=== PATIENT | male | born 1965 | race Caucasian/White ===

== ENCOUNTER 2023-05-06 12:18 | Inpatient (IN) | payer BC ==
[2023-05-06 12:30] LABS: Glucose,Whole Blood >600 mg/dL (70-110)
--- NOTE | 2023-05-06 12:47 | ED ---
Altered Mental Status HPI - General Chief Complaint: Altered Mental Status Stated Complaint: AMS Time Seen by Provider: 05/06/23 12:18 Source: EMS, RN notes reviewed Mode of arrival: EMS Limitations: altered mental status - History of Present Illness Initial Comments: 58-year-old male in by EMS due to decreased level of consciousness/altered mental status progressively last several days. He apparently did have a fall a few days ago the patient himself is a poor historian per paramedics his blood glucose was high on their glucometer patient has no known history of any medical problems per report. 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 Some unknown whether he smokes or drinks alcohol. No known drug use per report. No medications. Port. Patient did recently move to [place] from out of [facility]. Patient has had decreased oral intake over last 2 days at least. No other information available at this time the patient was mottled per paramedics that's why EMS was called this morning. Patient was noted initially of having a 70/30 pressure did improve into the 100 teens after IV fluids. MD Complaint: altered mental status, decreased responsiveness, other - Related Data Home Medications Medication Instructions Recorded Confirmed No Known Home Medications 05/06/23 05/06/23 Allergies Allergy/AdvReac Type Severity Reaction Status Date / Time No Known Allergies Allergy Verified 05/06/23 14:08 Review of Systems ROS Statement: Those systems with pertinent positive or pertinent negative responses have been documented in the HPI. ROS Other: All systems not noted in ROS Statement are negative. Limitations: ROS unobtainable due to patients medical condition Past Medical History Past Medical History: No Reported History Past Surgical History: No Surgical Hx Reported Past Psychological History: No Psychological Hx Reported General Exam - General Exam Comments Initial Comments: Is a well-developed asthenic appearing male who is awake but lethargic Limitations: altered mental status General appearance: lethargic Head exam: Present: atraumatic, normocephalic, normal inspection Eye exam: Present: normal appearance, PERRL, EOMI. Absent: scleral icterus, con junctival injection, periorbital swelling ENT exam: Present: mucous membranes dry Neck exam: Present: normal inspection, full ROM, other (No surgery or bruits). Absent: tenderness, meningismus, lymphadenopathy Respiratory exam: Present: decreased breath sounds. Absent: respiratory distress, wheezes, rales, rhonchi, stridor Cardiovascular Exam: Present: regular rate, normal rhythm, normal heart sounds. Absent: systolic murmur, diastolic murmur, rubs, gallop, clicks GI/Abdominal exam: Present: soft, normal bowel sounds. Absent: distended, tenderness, guarding, rebound, rigid Extremities exam: Present: normal inspection, full ROM, normal capillary refill. Absent: tenderness, pedal edema, joint swelling, calf tenderness Back exam: Present: normal inspection Neurological exam: Present: alert, altered, CN II-XII intact. Absent: motor sensory deficit Psychiatric exam: Present: normal mood, flat affect Skin exam: Present: warm, dry, intact, normal color, other (Some mild bleeding seen over the knees and anterior thighs). Absent: rash Course Vital Signs 05/06/23 12:23 Temperature 90.7 F L Pulse Rate 93 Respiratory 16 Rate Blood Pressure 117/71 O2 Sat by Pulse 88 L Oximetry - Reevaluation(s) Reevaluation #1: 05/06/23 13:17 Further information the patient does have a history of smoking he had quit but started again this past June additionally was a isn't a diabetic meal lost weight dropping down to 140 from 225 pounds. He also had diffuse in demonstrating flulike symptoms for possibly as long as a days. Reevaluation #2: 05/06/23 14:33 I did a long discussion with the patient's family were present in who did provide more information. Patient apparently has been having polyuria up until about 8 days ago and flulike symptoms develop. Patient does show evidence of severe left foot imbalance acidosis hyperglycemia. I did have multiple reevaluation the patient and discussions with the family. Reevaluation #3: 05/06/23 14:48 Patient does have a history of perianal boils or abscesses. Examination does show evidence of at least 2 negative ruptured I did perform a rectal exam no masses palpable no evidence of bleeding from the rectum. 05/06/23 14:49 Due to this findings patient will receiveone dose of antibiotics. Procedures - Smoking Cessation Additional Comments: Unable to discuss smoking cessation of the patient's current clinical state. Medical Decision Making - Medical Decision Making I did discuss the findings with the patient also with Dr. Esperanza dorado and Dr. Mendoza did come to see the patient in emergency department. Patient will be admitted to intensive care unit presumed DKA with R imbalance dehydration hellen dence of pancreatitis. Concern for postcovid changes on chest x-ray. Patient will be admitted to the intensive care unit on insulin drip.Was pt. sent in by a medical professional or institution (, [facility], [facility], urgent care, hospital, or senior care...) When possible be specific @ -No Did you speak to anyone other than the patient for history (EMS, parent, family, police, friend...)? What history was obtained from this source @ -S paramedics upon arrival as well as family members who arrived later Did you review nursing and triage notes (agree or disagree)? Why? @ -I reviewed and agree with nursing and triage notes Were old charts reviewed (outside hosp., previous admission, EMS record, old EKG, old radiological studies, urgent care reports/EKG's, senior care records)? Report findings @ -No old charts were reviewed. None available Differential Diagnosis (chest pain, altered mental status, abdominal pain women, abdominal pain men, vaginal bleeding, weakness, fever, dyspnea, syncope, headache, dizziness, GI bleed, back pain, seizure, CVA, palpatations, mental health, musculoskeletal)? @ -Diabetic ketoacidosis, dehydration, weakness, EKG interpreted by me (3pts min.). @ -EKG interpreted by me sinus rhythm a 93. Interval 151 QRS duration 106 QT/ QTC 389/440 voltage criteria for LVH X-rays interpreted by me (1pt min.). @ -Chest x-ray negative for acute process KUB nonspecific post x-ray negative for fractures. All these were interpreted by me CT interpreted by me (1pt min.). @ -CT imaging interpreted by me no evidence of acute process on CT brain or C- spine or evidence of PE there is increased markings consistent with possible post COVID-19 changes U/S interpreted by me (1pt. min.). @ -None done What testing was considered but not performed or refused? (CT, X-rays, U/S, labs)? Why? @ -None What meds were considered but not given or refused? Why? @ -None Did you discuss the management of the patient with other professionals (pro fessionals i.e. , [facility], [facility], lab, RT, psych nurse, manager social media, criminal lawyer, teacher, commanding officer motorized squad, child welfare caseworker)? Give summary @ -Epigastric, Dr. Mendoza Was smoking cessation discussed for >3mins.? @ -Unable to it this time Was critical care preformed (if so, how long)? @ -49 Were there social determinants of health that impacted care today? How? (Homelessness, low income, unemployed, alcoholism, drug addiction, transportation, low edu. Level, literacy, decrease access to med. care, longterm, rehab)? @ -No Was there de-escalation of care discussed even if they declined (Discuss DNR or withdrawal of care, Hospice)? DNR status @ -No What co-morbidities impacted this encounter? (DM, HTN, Smoking, COPD, CAD, Cancer, CVA, ARF, Chemo, Hep., AIDS, mental health diagnosis, sleep apnea, morbid obesity)? @ -History of diabetes Was patient admitted / discharged? Hospital course, mention meds given and route, prescriptions, significant lab abnormalities, going to OR and other pertinent info. @ -hospital course was admitted to the intensive care unit for treatment of presumed DKA likely imbalance dehydration and metabolic acidosis pancreatitis Undiagnosed new problem with uncertain prognosis? @ -DKA, dehydration, likely imbalance, pancreatitis, Drug Therapy requiring intensive monitoring for toxicity (Heparin, Nitro, Insulin, Cardizem)? @ -DKA protocol Were any procedures done? @ -No Diagnosis/symptom? @ -Acute DKA, dehydration, acute hypokalemia, acute hypomagnesemia, metabolic acidosis, perianal decubitus ulceration, weakness, hypothermia, acute hypotensive episode, Q [id number] Acute, or Chronic, or Acute on Chronic? @ -Acute Uncomplicated (without systemic symptoms) or Complicated (systemic symptoms)? @ -Applicator Side effects of treatment? @ -No Exacerbation, Progression, or Severe Exacerbation? @ -No Poses a threat to life or bodily function? How? (Chest pain, USA, NC, pneumonia, PE, COPD, DKA, ARF, appy, cholecystitis, CVA, Diverticulitis, Homicidal, Suicidal, threat to staff... and all critical care pts) @ -S, dehydration, DKA, likely imbalance, metabolic acidosis, pancreatitis - Lab Data Result diagrams: 05/06/23 12:41 05/06/23 12:41 Lab Results 09/05/06/23 05/06/23 Range/Units 12:24 12:41 12:41 WBC 26.4 H (3.8-10.6) k/uL RBC 4.07 L (4.30-5.90) m/uL Hgb 13.0 (13.0-17.5) gm/dL Hct 40.7 (39.0-53.0) % MCV 100.1 H (80.0-100.0) fL MCH 31.8 (25.0-35.0) pg MCHC 31.8 (31.0-37.0) g/dL RDW 13.1 (11.5-15.5) % Plt Count 295 (150-450) k/uL MPV 8.5 Hypochromasia Slight PT (9.0-12.0) sec INR (<1.2) D-Dimer (<0.60) mg/L FEU VBG pH (7.31-7.41) VBG pCO2 (37-51) mmHg VBG HCO3 (24-28) mmol/L Sodium 141 (137-145) mmol/L Potassium 2.6 L* (3.5-5.1) mmol/L Chloride 120 H (98-107) mmol/L Carbon Dioxide <5 L* (22-30) mmol/L Anion Gap mmol/L BUN 27 H (9-20) mg/dL Creatinine 0.79 (0.66-1.25) mg/dL Est GFR (CKD-EPI)AfAm >90 (>60 ml/min/1.73 sqM) Est GFR (CKD-EPI)NonAf >90 (>60 ml/min/1.73 sqM) Glucose 441 H (74-99) mg/dL POC Glucose (mg/dL) >600 H (70-110) mg/dL POC Glu [employer] ID Penny Garcia Calcium 4.7 L* (8.4-10.2) mg/dL Magnesium 1.4 L (1.6-2.3) mg/dL Total Bilirubin 0.2 (0.2-1.3) mg/dL AST 14 L (17-59) U/L ALT 8 (4-49) U/L Alkaline Phosphatase 88 (38-126) U/L Ammonia (<30) umol/L Creatine Kinase 36 L (55-170) U/L Troponin I (0.000-0.034) ng/mL Total Protein 3.7 L (6.3-8.2) g/dL Albumin 1.6 L (3.5-5.0) g/dL Lipase 5925 H (23-300) U/L Urine Color Urine Appearance (Clear) Urine pH (5.0-8.0) Ur Specific [place] (1.001-1.035) Urine Protein (Negative) Urine Glucose (UA) (Negative) Urine Ketones (Negative) Urine Blood (Negative) Urine Nitrite (Negative) Urine Bilirubin (Negative) Urine Urobilinogen (<2.0) mg/dL Ur Leukocyte Esterase (Negative) Urine RBC (0-5) /hpf Urine WBC (0-5) /hpf Ur Squamous Epith Cells (0-4) /hpf Urine Bacteria (None) /hpf Urine Mucus (None) /hpf Salicylates <1.0 mg/dL Urine Opiates Screen (NotDetected) Ur Oxycodone Screen (NotDetected) Urine Methadone Screen (NotDetected) Ur Propoxyphene Screen (NotDetected) Acetaminophen <10.0 ug/mL Ur Barbiturates Screen (NotDetected) U Tricyclic Antidepress (NotDetected) Ur Phencyclidine Scrn (NotDetected) Ur Amphetamines Screen (NotDetected) U Methamphetamines Scrn (NotDetected) U Benzodiazepines Scrn (NotDetected) Urine Cocaine Screen (NotDetected) U Marijuana (THC) Screen (NotDetected) Serum Alcohol <10 mg/dL Influenza Type A (PCR) (Not Detectd) Influenza Type B (PCR) (Not Detectd) RSV (PCR) (Not Detectd) SARS-CoV-2 (PCR) (Not Detectd) 05/06/23 05/06/23 05/06/23 Range/Units 12:41 12:41 12:41 WBC (3.8-10.6) k/uL RBC (4.30-5.90) m/uL Hgb (13.0-17.5) gm/dL Hct (39.0-53.0) % MCV (80.0-100.0) fL MCH (25.0-35.0) pg MCHC (31.0-37.0) g/dL RDW (11.5-15.5) % Plt Count (150-450) k/uL MPV Hypochromasia PT 12.2 H (9.0-12.0) sec INR 1.2 H (<1.2) D-Dimer 1.24 H (<0.60) mg/L FEU VBG pH (7.31-7.41) VBG pCO2 (37-51) mmHg VBG HCO3 (24-28) mmol/L Sodium (137-145) mmol/L Potassium (3.5-5.1) mmol/L Chloride (98-107) mmol/L Carbon Dioxide (22-30) mmol/L Anion Gap mmol/L BUN (9-20) mg/dL Creatinine (0.66-1.25) mg/dL Est GFR (CKD-EPI)AfAm (>60 ml/min/1.73 sqM) Est GFR (CKD-EPI)NonAf (>60 ml/min/1.73 sqM) Glucose (74-99) mg/dL POC Glucose (mg/dL) (70-110) mg/dL POC Glu [employer] ID Calcium (8.4-10.2) mg/dL Magnesium (1.6-2.3) mg/dL Total Bilirubin (0.2-1.3) mg/dL AST (17-59) U/L ALT (4-49) U/L Alkaline Phosphatase (38-126) U/L Ammonia (<30) umol/L Creatine Kinase (55-170) U/L Troponin I <0.012 (0.000-0.034) ng/mL Total Protein (6.3-8.2) g/dL Albumin (3.5-5.0) g/dL Lipase (23-300) U/L Urine Color Urine Appearance (Clear) Urine pH (5.0-8.0) Ur Specific [place] (1.001-1.035) Urine Protein (Negative) Urine Glucose (UA) (Negative) Urine Ketones (Negative) Urine Blood (Negative) Urine Nitrite (Negative) Urine Bilirubin (Negative) Urine Urobilinogen (<2.0) mg/dL Ur Leukocyte Esterase (Negative) Urine RBC (0-5) /hpf Urine WBC (0-5) /hpf Ur Squamous Epith Cells (0-4) /hpf Urine Bacteria (None) /hpf Urine Mucus (None) /hpf Salicylates mg/dL Urine Opiates Screen (NotDetected) Ur Oxycodone Screen (NotDetected) Urine Methadone Screen (NotDetected) Ur Propoxyphene Screen (NotDetected) Acetaminophen ug/mL Ur Barbiturates Screen (NotDetected) U Tricyclic Antidepress (NotDetected) Ur Phencyclidine Scrn (NotDetected) Ur Amphetamines Screen (NotDetected) U Methamphetamines Scrn (NotDetected) U Benzodiazepines Scrn (NotDetected) Urine Cocaine Screen (NotDetected) U Marijuana (THC) Screen (NotDetected) Serum Alcohol mg/dL Influenza Type A (PCR) Not Detected (Not Detectd) Influenza Type B (PCR) Not Detected (Not Detectd) RSV (PCR) Not Detected (Not Detectd) SARS-CoV-2 (PCR) Not Detected (Not Detectd) 05/06/23 05/06/23 05/06/23 Range/Units 12:41 12:41 12:48 WBC (3.8-10.6) k/uL RBC (4.30-5.90) m/uL Hgb (13.0-17.5) gm/dL Hct (39.0-53.0) % MCV (80.0-100.0) fL MCH (25.0-35.0) pg MCHC (31.0-37.0) g/dL RDW (11.5-15.5) % Plt Count (150-450) k/uL MPV Hypochromasia PT (9.0-12.0) sec INR (<1.2) D-Dimer (<0.60) mg/L FEU VBG pH 6.89 L* (7.31-7.41) VBG pCO2 18 L* (37-51) mmHg VBG HCO3 4 L* (24-28) mmol/L Sodium (137-145) mmol/L Potassium (3.5-5.1) mmol/L Chloride (98-107) mmol/L Carbon Dioxide (22-30) mmol/L Anion Gap mmol/L BUN (9-20) mg/dL Creatinine (0.66-1.25) mg/dL Est GFR (CKD-EPI)AfAm (>60 ml/min/1.73 sqM) Est GFR (CKD-EPI)NonAf (>60 ml/min/1.73 sqM) Glucose (74-99) mg/dL POC Glucose (mg/dL) (70-110) mg/dL POC Glu [employer] ID Calcium (8.4-10.2) mg/dL Magnesium (1.6-2.3) mg/dL Total Bilirubin (0.2-1.3) mg/dL AST (17-59) U/L ALT (4-49) U/L Alkaline Phosphatase (38-126) U/L Ammonia <9 (<30) umol/L Creatine Kinase (55-170) U/L Troponin I (0.000-0.034) ng/mL Total Protein (6.3-8.2) g/dL Albumin (3.5-5.0) g/dL Lipase (23-300) U/L Urine Color Urine Appearance (Clear) Urine pH (5.0-8.0) Ur Specific [place] (1.001-1.035) Urine Protein (Negative) Urine Glucose (UA) (Negative) Urine Ketones (Negative) Urine Blood (Negative) Urine Nitrite (Negative) Urine Bilirubin (Negative) Urine Urobilinogen (<2.0) mg/dL Ur Leukocyte Esterase (Negative) Urine RBC (0-5) /hpf Urine WBC (0-5) /hpf Ur Squamous Epith Cells (0-4) /hpf Urine Bacteria (None) /hpf Urine Mucus (None) /hpf Salicylates mg/dL Urine Opiates Screen Not Detected (NotDetected) Ur Oxycodone Screen Not Detected (NotDetected) Urine Methadone Screen Not Detected (NotDetected) Ur Propoxyphene Screen Not Detected (NotDetected) Acetaminophen ug/mL Ur Barbiturates Screen Not Detected (NotDetected) U Tricyclic Antidepress Not Detected (NotDetected) Ur Phencyclidine Scrn Not Detected (NotDetected) Ur Amphetamines Screen Not Detected (NotDetected) U Methamphetamines Scrn Not Detected (NotDetected) U Benzodiazepines Scrn Not Detected (NotDetected) Urine Cocaine Screen Not Detected (NotDetected) U Marijuana (THC) Screen Not Detected (NotDetected) Serum Alcohol mg/dL Influenza Type A (PCR) (Not Detectd) Influenza Type B (PCR) (Not Detectd) RSV (PCR) (Not Detectd) SARS-CoV-2 (PCR) (Not Detectd) 05/06/23 Range/Units 13:33 WBC (3.8-10.6) k/uL RBC (4.30-5.90) m/uL Hgb (13.0-17.5) gm/dL Hct (39.0-53.0) % MCV (80.0-100.0) fL MCH (25.0-35.0) pg MCHC (31.0-37.0) g/dL RDW (11.5-15.5) % Plt Count (150-450) k/uL MPV Hypochromasia PT (9.0-12.0) sec INR (<1.2) D-Dimer (<0.60) mg/L FEU VBG pH (7.31-7.41) VBG pCO2 (37-51) mmHg VBG HCO3 (24-28) mmol/L Sodium (137-145) mmol/L Potassium (3.5-5.1) mmol/L Chloride (98-107) mmol/L Carbon Dioxide (22-30) mmol/L Anion Gap mmol/L BUN (9-20) mg/dL Creatinine (0.66-1.25) mg/dL Est GFR (CKD-EPI)AfAm (>60 ml/min/1.73 sqM) Est GFR (CKD-EPI)NonAf (>60 ml/min/1.73 sqM) Glucose (74-99) mg/dL POC Glucose (mg/dL) (70-110) mg/dL POC Glu [employer] ID Calcium (8.4-10.2) mg/dL Magnesium (1.6-2.3) mg/dL Total Bilirubin (0.2-1.3) mg/dL AST (17-59) U/L ALT (4-49) U/L Alkaline Phosphatase (38-126) U/L Ammonia (<30) umol/L Creatine Kinase (55-170) U/L Troponin I (0.000-0.034) ng/mL Total Protein (6.3-8.2) g/dL Albumin (3.5-5.0) g/dL Lipase (23-300) U/L Urine Color Colorless Urine Appearance Clear (Clear) Urine pH 5.5 (5.0-8.0) Ur Specific [place] 1.021 (1.001-1.035) Urine Protein 1+ H (Negative) Urine Glucose (UA) 4+ H (Negative) Urine Ketones 3+ H (Negative) Urine Blood Small H (Negative) Urine Nitrite Negative (Negative) Urine Bilirubin Negative (Negative) Urine Urobilinogen <2.0 (<2.0) mg/dL Ur Leukocyte Esterase Negative (Negative) Urine RBC 1 (0-5) /hpf Urine WBC 2 (0-5) /hpf Ur Squamous Epith Cells <1 (0-4) /hpf Urine Bacteria Rare H (None) /hpf Urine Mucus Rare H (None) /hpf Salicylates mg/dL Urine Opiates Screen (NotDetected) Ur Oxycodone Screen (NotDetected) Urine Methadone Screen (NotDetected) Ur Propoxyphene Screen (NotDetected) Acetaminophen ug/mL Ur Barbiturates Screen (NotDetected) U Tricyclic Antidepress (NotDetected) Ur Phencyclidine Scrn (NotDetected) Ur Amphetamines Screen (NotDetected) U Methamphetamines Scrn (NotDetected) U Benzodiazepines Scrn (NotDetected) Urine Cocaine Screen (NotDetected) U Marijuana (THC) Screen (NotDetected) Serum Alcohol mg/dL Influenza Type A (PCR) (Not Detectd) Influenza Type B (PCR) (Not Detectd) RSV (PCR) (Not Detectd) SARS-CoV-2 (PCR) (Not Detectd) - EKG Data -: EKG Interpreted by Me EKG Comments: EKG interpreted by me sinus rhythm of 93. Interval 151 QRS duration 106 QT since QTC 39/440 pulses criteria for LVH no acute ST-T wave changes prominent T waves seen however. - Radiology Data Interpreted by me: An hall porter the imaging no evidence of acute infiltrates or abnormal bowel ga s patterns. CT no evidence of acute intracerebral process or fractures of the C-spine. No evidence of PE at this time. CAT scan does show some infiltrate however. Critical Care Time Critical Care Time: Yes Total Critical Care Time: 45 Disposition Clinical Impression: DKA (diabetic ketoacidosis), Dehydration, Hypotensive episode, Hypokalemia, Hypomagnesemia, Leukocytosis, Metabolic acidosis, Decubitus ulcer, Altered mental status, Delirium due to general medical condition Disposition: ADMITTED IP TO THIS [facility] Condition: Critical Referrals: Nonstaff,Physician [REFERRING] - 1-2 days Decision Date: 05/06/23 Decision Time: 14:52
[2023-05-06] MEDS ORDERED: SODIUM CHLORIDE 0.9% 1,000 ML IV STA (13:09)
[2023-05-06 13:21] LABS: Amphetamine Screen,Urine Not Detected (NotDetected); Barbiturate Screen,Urine Not Detected (NotDetected); Benzodiazepines Screen,Urine Not Detected (NotDetected); Cocaine Screen,Urine Not Detected (NotDetected); Methadone Screen, Urine Not Detected (NotDetected); Opiate Screen,Urine Not Detected (NotDetected); Oxycodone Screen, Urine Not Detected (NotDetected); Phencyclidine Screen,Urine Not Detected (NotDetected); Tricyclic Antidepressant,Urine Not Detected (NotDetected); Urn Cannabinoid Scrn Not Detected (NotDetected)
[2023-05-06 13:37] LABS: INR 1.2 (<1.2); Prothrombin Time 12.2 sec (9.0-12.0)
[2023-05-06 13:41] LABS: ALT 8 U/L (4-49); AST 14 U/L (17-59); Acetaminophen <10.0 ug/mL; African American GFR (CKD) >90 (>60 ml/min/1.73 sqM); Albumin 1.6 g/dL (3.5-5.0); Alcohol <10 mg/dL; Alkaline Phosphatase 88 U/L (38-126); Blood Urea Nitrogen 27 mg/dL (9-20); Chloride 120 mmol/L (98-107); Creatine Kinase 36 U/L (55-170); Glucose 441 mg/dL (74-99); Magnesium 1.4 mg/dL (1.6-2.3); Non-African American GFR(CKD) >90 (>60 ml/min/1.73 sqM); Salicylate <1.0 mg/dL; Sodium 141 mmol/L (137-145); Total Bilirubin 0.2 mg/dL (0.2-1.3); Total Protein 3.7 g/dL (6.3-8.2)
[2023-05-06 13:42] LABS: Calcium 4.7 mg/dL (8.4-10.2); Carbon Dioxide <5 mmol/L (22-30); Potassium 2.6 mmol/L (3.5-5.1)
[2023-05-06] MEDS ORDERED: POTASSIUM CHLORIDE 20 MEQ in WATER FOR INJECTION 1 100ML.BAG IVPB STA (13:45)
[2023-05-06] MEDS ORDERED: MAGNESIUM SULFATE-D5W PMX 1 GM in DEXTROSE/WATER 1 100ML.BAG IVPB ONE (13:46)
--- NOTE | 2023-05-06 13:47 | XR ---
EXAMINATION TYPE: XR chest 1V portable DATE OF EXAM: 05/06/2023 COMPARISON: NONE HISTORY: Altered mental status TECHNIQUE: Single frontal view of the chest is obtained. FINDINGS: Linear patchy subsegmental changes. There is a 1 cm nodule along the lateral margin of the left lung. Underlying COPD. Inspiration. No evidence of pneumothorax. No sizable pleural effusion. C urvature of the spine. IMPRESSION: 1. No definite acute process suspected COPD and basilar scarring or basilar atelectasis. 2. 1 cm nodule lateral margin left lower lobe could represent nipple shadow. Recommend follow-up ches t x-ray with nipple markers and short-term basis.
[2023-05-06 13:50] LABS: HCT 40.7 % (39.0-53.0); Hypochromasia Slight; MCH 31.8 pg (25.0-35.0); MCHC 31.8 g/dL (31.0-37.0); MCV 100.1 fL (80.0-100.0); Mean Platelet Volume 8.5; Platelet Count 295 k/uL (150-450); RBC 4.07 m/uL (4.30-5.90); RDW 13.1 % (11.5-15.5); WBC 26.4 k/uL (3.8-10.6)
--- NOTE | 2023-05-06 13:54 | XR ---
EXAMINATION TYPE: XR pelvis AP view DATE OF EXAM: 05/06/2023 COMPARISON: NONE HISTORY: Pain The osseous structures are intact and the joint spaces are preserved. No acute fracture is seen. Vi sualized bowel gas pattern is nonspecific. There is a catheter or tube overlying the lower pelvis po ssibly within the rectum or bladder. Vascular calcifications noted. Diffuse osteopenia. IMPRESSION: 1. No acute fracture.
[2023-05-06 13:56] LABS: VBG PH 6.89 (7.31-7.41)
[2023-05-06 13:59] LABS: Appearance,Urine Clear (Clear); Bacteria,Urine Rare /hpf; Bilirubin,Urine Negative (Negative); Blood,Urine Small (Negative); Color,Urine Colorless; Glucose,Urine (UA) 4+ (Negative); Ketones,Urine 3+ (Negative); Leukocyte Esterase,Urine Negative (Negative); Mucus,Urine Rare /hpf; Nitrite,Urine Negative (Negative); PH, Urine 5.5 (5.0-8.0); Protein,Urine 1+ (Negative); RBC,Urine 1 /hpf (0-5); Specific Gravity,Urine 1.021 (1.001-1.035); Squamous Epithelial Cell,Urine <1 /hpf (0-4); Urobilinogen,Urine <2.0 mg/dL (<2.0); WBC,Urine 2 /hpf (0-5)
[2023-05-06 14:09] LABS: Band Neutrophils % 6 %; Lymphocytes # (M) 1.32 k/uL (1.0-4.8); Metamyelocytes # (M) 0.26 k/uL (0); Metamyelocytes % 1 %; Monocytes # (M) 1.32 k/uL (0-1.0); Myelocytes # (M) 0.26 k/uL (0); Myelocytes % 1 %; Neutrophils % (M) 84 %; Nucleated Red Blood Cells 0 /100 WBC (0-0); Total Cells Counted 200
[2023-05-06] MEDS ORDERED: Magnesium Replacement Protocol 1 EACH MISC MISCELLANE PRN (14:20)
[2023-05-06] MEDS ORDERED: Potassium Replacement Protocol 1 EACH MISC MISCELLANE PRN (14:20)
[2023-05-06] MEDS ORDERED: INSULIN REGULAR BOLUS (FROM DRIP BAG) IV ONE (14:20)
[2023-05-06] MEDS ORDERED: DEXTROSE 50% SYRINGE 50 ML IVP PRN ×2 (14:20)
[2023-05-06 14:24] LABS: Lipase 5925 U/L (23-300)
--- NOTE | 2023-05-06 14:29 | CT ---
EXAMINATION TYPE: CT brain cspine wo con CT DLP: AMS mGycm, Automated exposure control for dose reduction was used. DATE OF EXAM: 05/06/2023 2:15 PM COMPARISON: None. CLINICAL INDICATION:Male, 58 years old with history of altered mental; 1328.9 TECHNIQUE: Brain: Multiple axial CT images of the brain were obtained without IV contrast. Cspine: Axial CT images from the skull base to the inferior aspect of T2 we obtained without intraven ous contrast. Coronal and sagittal reformatted images were also reviewed. FINDINGS: Brain: Extra-axial spaces: No abnormal extra-axial fluid collections. Ventricular system: Dilatation in proportion to cerebral atrophy. Cerebral parenchyma: Cerebral atrophy. No acute intraparenchymal hemorrhage or mass effect. The walsh -white junction is well differentiated. Cerebellum: Unremarkable. Mass effect: No evidence of midline shift. Intracranial vasculature: Atherosclerotic calcifications of the intracranial vessels. Soft tissues: Normal. Calvarium/osseous structures: No depressed skull fracture. Paranasal sinuses and mastoid air cells: Clear. Visualized orbits: Orbital contents are intact. Cervical spine: Fracture: None. Osseous structures: Multilevel degenerative disc disease changes with endplate spurring and disc oste ophyte complex's. Vertebral alignment: Within normal limits. Spinal canal/Neural Foramina: No evidence of significant spinal canal narrowing. No evidence for sign ificant neural foraminal stenosis. Neck soft tissues: Prevertebral soft tissues are within normal limits. Other: The airway is patent. The lung apices are clear. IMPRESSION: 1. No acute intracranial process. 2. Nonspecific white matter changes, likely secondary to chronic small vessel ischemic disease. 3. No evidence of cervical spine fracture. 4. Mild multilevel degenerative disc disease.
[2023-05-06] MEDS ORDERED: SODIUM CHLORIDE 0.9% 2,000 ML IV ONE (14:32)
--- NOTE | 2023-05-06 14:36 | CT ---
EXAMINATION TYPE: CT angio chest CT DLP: 317.3 mGycm, Automated exposure control for dose reduction was used. DATE OF EXAM: 05/06/2023 2:17 PM COMPARISON: Chest radiograph from same day. CLINICAL INDICATION:Male, 58 years old with history of PE suspected; elevated d-dimer. r/o PE. TECHNIQUE/CONTRAST: CTA scan of the thorax is performed with IV Contrast, patient injected with 70ml mL of Isovue 370, OH P images are created and reviewed these are created on a separate workstation.. FINDINGS: Pulmonary Artery: There is no evidence for a filling defect within the pulmonary vasculature to sugge st acute pulmonary embolism. The pulmonary artery is of normal size. Lungs/Pleura: Peripheral groundglass opacities are seen throughout the lungs and most pronounced in t he right lungs and along the right lung base. Intrathoracic; the left lungs. Airway: Large airways are patent. Heart: Heart is within normal limits for size. Vasculature: No evidence of aortic aneurysm. Mediastinum: No gross evidence of adenopathy. Moderate hiatal hernia with esophageal wall thickening. Musculoskeletal: No acute osseous abnormalities Soft Tissues: Unremarkable. Lower neck: No significant findings. Upper Abdomen: No significant findings. IMPRESSION: 1. No evidence of pulmonary embolism. 2. Peripheral groundglass pulmonary opacities consistent with atypical pulmonary infection such as CO VID-19. 3. Esophageal wall thickening correlate for esophagitis.
[2023-05-06 14:50] LABS: Poikilocytosis (M) Present
[2023-05-06] MEDS ORDERED: PIPERACILLIN-TAZOBACTAM 3.375 GM in SODIUM CHLORIDE 0.9% 100 ML IVPB STA (14:53)
--- NOTE | 2023-05-06 14:54 | ED ---
Medical Decision Making - Lab Data Result diagrams: 05/06/23 12:41 05/06/23 12:41 Lab Results 05/06/23 05/06/23 05/06/23 Range/Units 12:24 12:41 12:41 WBC 26.4 H (3.8-10.6) k/uL RBC 4.07 L (4.30-5.90) m/uL Hgb 13.0 (13.0-17.5) gm/dL Hct 40.7 (39.0-53.0) % MCV 100.1 H (80.0-100.0) fL MCH 31.8 (25.0-35.0) pg MCHC 31.8 (31.0-37.0) g/dL RDW 13.1 (11.5-15.5) % Plt Count 295 (150-450) k/uL MPV 8.5 Neutrophils % (Manual) 84 % Band Neuts % (Manual) 6 % Lymphocytes % (Manual) 5 % Monocytes % (Manual) 5 % Metamyelocytes % 1 % Myelocytes % 1 % Neutrophils # (Manual) 23.70 H (1.3-7.7) k/uL Lymphocytes # (Manual) 1.32 (1.0-4.8) k/uL Monocytes # (Manual) 1.32 H (0-1.0) k/uL Metamyelocytes # (Man) 0.26 H (0) k/uL Myelocytes # (Manual) 0.26 H (0) k/uL Nucleated RBCs 0 (0-0) /100 WBC Differential Comment LABOR AND DELIVERY NURSE Manual Slide Review Performed Hypochromasia Slight Poikilocytosis (manual Present PT (9.0-12.0) sec INR (<1.2) D-Dimer (<0.60) mg/L FEU VBG pH (7.31-7.41) VBG pCO2 (37-51) mmHg VBG HCO3 (24-28) mmol/L Sodium 141 (137-145) mmol/L Potassium 2.6 L* (3.5-5.1) mmol/L Chloride 120 H (98-107) mmol/L Carbon Dioxide <5 L* (22-30) mmol/L Anion Gap mmol/L BUN 27 H (9-20) mg/dL Creatinine 0.79 (0.66-1.25) mg/dL Est GFR (CKD-EPI)AfAm >90 (>60 ml/min/1.73 sqM) Est GFR (CKD-EPI)NonAf >90 (>60 ml/min/1.73 sqM) Glucose 441 H (74-99) mg/dL POC Glucose (mg/dL) >600 H (70-110) mg/dL POC Glu Nematology Teacher ID Penny Garcia Osmolality 331 H* (280-301) mosm/kg Calcium 4.7 L* (8.4-10.2) mg/dL Magnesium 1.4 L (1.6-2.3) mg/dL Total Bilirubin 0.2 (0.2-1.3) mg/dL AST 14 L (17-59) U/L ALT 8 (4-49) U/L Alkaline Phosphatase 88 (38-126) U/L Ammonia (<30) umol/L Creatine Kinase 36 L (55-170) U/L Troponin I (0.000-0.034) ng/mL Total Protein 3.7 L (6.3-8.2) g/dL Albumin 1.6 L (3.5-5.0) g/dL Lipase 5925 H (23-300) U/L Urine Color Urine Appearance (Clear) Urine pH (5.0-8.0) Ur Specific Trout (1.001-1.035) Urine Protein (Negative) Urine Glucose (UA) (Negative) Urine Ketones (Negative) Urine Blood (Negative) Urine Nitrite (Negative) Urine Bilirubin (Negative) Urine Urobilinogen (<2.0) mg/dL Ur Leukocyte Esterase (Negative) Urine RBC (0-5) /hpf Urine WBC (0-5) /hpf Ur Squamous Epith Cells (0-4) /hpf Urine Bacteria (None) /hpf Urine Mucus (None) /hpf Salicylates <1.0 mg/dL Urine Opiates Screen (NotDetected) Ur Oxycodone Screen (NotDetected) Urine Methadone Screen (NotDetected) Ur Propoxyphene Screen (NotDetected) Acetaminophen <10.0 ug/mL Ur Barbiturates Screen (NotDetected) U Tricyclic Antidepress (NotDetected) Ur Phencyclidine Scrn (NotDetected) Ur Amphetamines Screen (NotDetected) U Methamphetamines Scrn (NotDetected) U Benzodiazepines Scrn (NotDetected) Urine Cocaine Screen (NotDetected) U Marijuana (THC) Screen (NotDetected) Serum Alcohol <10 mg/dL Influenza Type A (PCR) (Not Detectd) Influenza Type B (PCR) (Not Detectd) RSV (PCR) (Not Detectd) SARS-CoV-2 (PCR) (Not Detectd) 05/06/23 05/06/23 05/06/23 Range/Units 12:41 12:41 12:41 WBC (3.8-10.6) k/uL RBC (4.30-5.90) m/uL Hgb (13.0-17.5) gm/dL Hct (39.0-53.0) % MCV (80.0-100.0) fL MCH (25.0-35.0) pg MCHC (31.0-37.0) g/dL RDW (11.5-15.5) % Plt Count (150-450) k/uL MPV Neutrophils % (Manual) % Band Neuts % (Manual) % Lymphocytes % (Manual) % Monocytes % (Manual) % Metamyelocytes % % Myelocytes % % Neutrophils # (Manual) (1.3-7.7) k/uL Lymphocytes # (Manual) (1.0-4.8) k/uL Monocytes # (Manual) (0-1.0) k/uL Metamyelocytes # (Man) (0) k/uL Myelocytes # (Manual) (0) k/uL Nucleated RBCs (0-0) /100 WBC Differential Comment Manual Slide Review Hypochromasia Poikilocytosis (manual PT 12.2 H (9.0-12.0) sec INR 1.2 H (<1.2) D-Dimer 1.24 H (<0.60) mg/L FEU VBG pH (7.31-7.41) VBG pCO2 (37-51) mmHg VBG HCO3 (24-28) mmol/L Sodium (137-145) mmol/L Potassium (3.5-5.1) mmol/L Chloride (98-107) mmol/L Carbon Dioxide (22-30) mmol/L Anion Gap mmol/L BUN (9-20) mg/dL Creatinine (0.66-1.25) mg/dL Est GFR (CKD-EPI)AfAm (>60 ml/min/1.73 sqM) Est GFR (CKD-EPI)NonAf (>60 ml/min/1.73 sqM) Glucose (74-99) mg/dL POC Glucose (mg/dL) (70-110) mg/dL POC Glu Nematology Teacher ID Osmolality (280-301) mosm/kg Calcium (8.4-10.2) mg/dL Magnesium (1.6-2.3) mg/dL Total Bilirubin (0.2-1.3) mg/dL AST (17-59) U/L ALT (4-49) U/L Alkaline Phosphatase (38-126) U/L Ammonia (<30) umol/L Creatine Kinase (55-170) U/L Troponin I <0.012 (0.000-0.034) ng/mL Total Protein (6.3-8.2) g/dL Albumin (3.5-5.0) g/dL Lipase (23-300) U/L Urine Color Urine Appearance (Clear) Urine pH (5.0-8.0) Ur Specific Trout (1.001-1.035) Urine Protein (Negative) Urine Glucose (UA) (Negative) Urine Ketones (Negative) Urine Blood (Negative) Urine Nitrite (Negative) Urine Bilirubin (Negative) Urine Urobilinogen (<2.0) mg/dL Ur Leukocyte Esterase (Negative) Urine RBC (0-5) /hpf Urine WBC (0-5) /hpf Ur Squamous Epith Cells (0-4) /hpf Urine Bacteria (None) /hpf Urine Mucus (None) /hpf Salicylates mg/dL Urine Opiates Screen (NotDetected) Ur Oxycodone Screen (NotDetected) Urine Methadone Screen (NotDetected) Ur Propoxyphene Screen (NotDetected) Acetaminophen ug/mL Ur Barbiturates Screen (NotDetected) U Tricyclic Antidepress (NotDetected) Ur Phencyclidine Scrn (NotDetected) Ur Amphetamines Screen (NotDetected) U Methamphetamines Scrn (NotDetected) U Benzodiazepines Scrn (NotDetected) Urine Cocaine Screen (NotDetected) U Marijuana (THC) Screen (NotDetected) Serum Alcohol mg/dL Influenza Type A (PCR) Not Detected (Not Detectd) Influenza Type B (PCR) Not Detected (Not Detectd) RSV (PCR) Not Detected (Not Detectd) SARS-CoV-2 (PCR) Not Detected (Not Detectd) 05/06/23 05/06/23 05/06/23 Range/Units 12:41 12:41 12:48 WBC (3.8-10.6) k/uL RBC (4.30-5.90) m/uL Hgb (13.0-17.5) gm/dL Hct (39.0-53.0) % MCV (80.0-100.0) fL MCH (25.0-35.0) pg MCHC (31.0-37.0) g/dL RDW (11.5-15.5) % Plt Count (150-450) k/uL MPV Neutrophils % (Manual) % Band Neuts % (Manual) % Lymphocytes % (Manual) % Monocytes % (Manual) % Metamyelocytes % % Myelocytes % % Neutrophils # (Manual) (1.3-7.7) k/uL Lymphocytes # (Manual) (1.0-4.8) k/uL Monocytes # (Manual) (0-1.0) k/uL Metamyelocytes # (Man) (0) k/uL Myelocytes # (Manual) (0) k/uL Nucleated RBCs (0-0) /100 WBC Differential Comment Manual Slide Review Hypochromasia Poikilocytosis (manual PT (9.0-12.0) sec INR (<1.2) D-Dimer (<0.60) mg/L FEU VBG pH 6.89 L* (7.31-7.41) VBG pCO2 18 L* (37-51) mmHg VBG HCO3 4 L* (24-28) mmol/L Sodium (137-145) mmol/L Potassium (3.5-5.1) mmol/L Chloride (98-107) mmol/L Carbon Dioxide (22-30) mmol/L Anion Gap mmol/L BUN (9-20) mg/dL Creatinine (0.66-1.25) mg/dL Est GFR (CKD-EPI)AfAm (>60 ml/min/1.73 sqM) Est GFR (CKD-EPI)NonAf (>60 ml/min/1.73 sqM) Glucose (74-99) mg/dL POC Glucose (mg/dL) (70-110) mg/dL POC Glu Nematology Teacher ID Osmolality (280-301) mosm/kg Calcium (8.4-10.2) mg/dL Magnesium (1.6-2.3) mg/dL Total Bilirubin (0.2-1.3) mg/dL AST (17-59) U/L ALT (4-49) U/L Alkaline Phosphatase (38-126) U/L Ammonia <9 (<30) umol/L Creatine Kinase (55-170) U/L Troponin I (0.000-0.034) ng/mL Total Protein (6.3-8.2) g/dL Albumin (3.5-5.0) g/dL Lipase (23-300) U/L Urine Color Urine Appearance (Clear) Urine pH (5.0-8.0) Ur Specific Trout (1.001-1.035) Urine Protein (Negative) Urine Glucose (UA) (Negative) Urine Ketones (Negative) Urine Blood (Negative) Urine Nitrite (Negative) Urine Bilirubin (Negative) Urine Urobilinogen (<2.0) mg/dL Ur Leukocyte Esterase (Negative) Urine RBC (0-5) /hpf Urine WBC (0-5) /hpf Ur Squamous Epith Cells (0-4) /hpf Urine Bacteria (None) /hpf Urine Mucus (None) /hpf Salicylates mg/dL Urine Opiates Screen Not Detected (NotDetected) Ur Oxycodone Screen Not Detected (NotDetected) Urine Methadone Screen Not Detected (NotDetected) Ur Propoxyphene Screen Not Detected (NotDetected) Acetaminophen ug/mL Ur Barbiturates Screen Not Detected (NotDetected) U Tricyclic Antidepress Not Detected (NotDetected) Ur Phencyclidine Scrn Not Detected (NotDetected) Ur Amphetamines Screen Not Detected (NotDetected) U Methamphetamines Scrn Not Detected (NotDetected) U Benzodiazepines Scrn Not Detected (NotDetected) Urine Cocaine Screen Not Detected (NotDetected) U Marijuana (THC) Screen Not Detected (NotDetected) Serum Alcohol mg/dL Influenza Type A (PCR) (Not Detectd) Influenza Type B (PCR) (Not Detectd) RSV (PCR) (Not Detectd) SARS-CoV-2 (PCR) (Not Detectd) 05/06/23 Range/Units 13:33 WBC (3.8-10.6) k/uL RBC (4.30-5.90) m/uL Hgb (13.0-17.5) gm/dL Hct (39.0-53.0) % MCV (80.0-100.0) fL MCH (25.0-35.0) pg MCHC (31.0-37.0) g/dL RDW (11.5-15.5) % Plt Count (150-450) k/uL MPV Neutrophils % (Manual) % Band Neuts % (Manual) % Lymphocytes % (Manual) % Monocytes % (Manual) % Metamyelocytes % % Myelocytes % % Neutrophils # (Manual) (1.3-7.7) k/uL Lymphocytes # (Manual) (1.0-4.8) k/uL Monocytes # (Manual) (0-1.0) k/uL Metamyelocytes # (Man) (0) k/uL Myelocytes # (Manual) (0) k/uL Nucleated RBCs (0-0) /100 WBC Differential Comment Manual Slide Review Hypochromasia Poikilocytosis (manual PT (9.0-12.0) sec INR (<1.2) D-Dimer (<0.60) mg/L FEU VBG pH (7.31-7.41) VBG pCO2 (37-51) mmHg VBG HCO3 (24-28) mmol/L Sodium (137-145) mmol/L Potassium (3.5-5.1) mmol/L Chloride (98-107) mmol/L Carbon Dioxide (22-30) mmol/L Anion Gap mmol/L BUN (9-20) mg/dL Creatinine (0.66-1.25) mg/dL Est GFR (CKD-EPI)AfAm (>60 ml/min/1.73 sqM) Est GFR (CKD-EPI)NonAf (>60 ml/min/1.73 sqM) Glucose (74-99) mg/dL POC Glucose (mg/dL) (70-110) mg/dL POC Glu Nematology Teacher ID Osmolality (280-301) mosm/kg Calcium (8.4-10.2) mg/dL Magnesium (1.6-2.3) mg/dL Total Bilirubin (0.2-1.3) mg/dL AST (17-59) U/L ALT (4-49) U/L Alkaline Phosphatase (38-126) U/L Ammonia (<30) umol/L Creatine Kinase (55-170) U/L Troponin I (0.000-0.034) ng/mL Total Protein (6.3-8.2) g/dL Albumin (3.5-5.0) g/dL Lipase (23-300) U/L Urine Color Colorless Urine Appearance Clear (Clear) Urine pH 5.5 (5.0-8.0) Ur Specific Trout 1.021 (1.001-1.035) Urine Protein 1+ H (Negative) Urine Glucose (UA) 4+ H (Negative) Urine Ketones 3+ H (Negative) Urine Blood Small H (Negative) Urine Nitrite Negative (Negative) Urine Bilirubin Negative (Negative) Urine Urobilinogen <2.0 (<2.0) mg/dL Ur Leukocyte Esterase Negative (Negative) Urine RBC 1 (0-5) /hpf Urine WBC 2 (0-5) /hpf Ur Squamous Epith Cells <1 (0-4) /hpf Urine Bacteria Rare H (None) /hpf Urine Mucus Rare H (None) /hpf Salicylates mg/dL Urine Opiates Screen (NotDetected) Ur Oxycodone Screen (NotDetected) Urine Methadone Screen (NotDetected) Ur Propoxyphene Screen (NotDetected) Acetaminophen ug/mL Ur Barbiturates Screen (NotDetected) U Tricyclic Antidepress (NotDetected) Ur Phencyclidine Scrn (NotDetected) Ur Amphetamines Screen (NotDetected) U Methamphetamines Scrn (NotDetected) U Benzodiazepines Scrn (NotDetected) Urine Cocaine Screen (NotDetected) U Marijuana (THC) Screen (NotDetected) Serum Alcohol mg/dL Influenza Type A (PCR) (Not Detectd) Influenza Type B (PCR) (Not Detectd) RSV (PCR) (Not Detectd) SARS-CoV-2 (PCR) (Not Detectd) Disposition Clinical Impression: DKA (diabetic ketoacidosis), Dehydration, Hypotensive episode, Hypokalemia, Hypomagnesemia, Leukocytosis, Metabolic acidosis, Decubitus ulcer, Altered mental status, Delirium due to general medical condition, Acute pancreatitis Disposition: ADMITTED IP TO THIS [facility] Condition: Critical Referrals: Nonstaff,Physician [REFERRING] - 1-2 days Decision Date: 05/06/23 Decision Time: 14:54
[2023-05-06] MEDS ORDERED: NALOXONE 0.4 MG/ML 1 ML VIAL IV PRN (14:59)
[2023-05-06] MEDS ORDERED: DEXTROSE 5% IN WATER 1,000 ML with SODIUM BICARB (1 MEQ/ML) 150 ML IV SCH (15:00)
--- NOTE | 2023-05-06 15:02 | XR ---
EXAMINATION TYPE: XR KUB portable DATE OF EXAM: 05/06/2023 COMPARISON: NONE HISTORY: Pain TECHNIQUE: One view abdominal series FINDINGS: The osseous structures are intact. The bowel gas pattern is nonspecific. There are dilated small and large bowel loops. Retained fecal debris throughout the colon. There is a lead or catheter overlying the pelvis. Vascular calcifications noted. IMPRESSION: 1. Nonspecific abdomen. Multiple dilated bowel loops in the abdomen may be related to an ileus\enter itis. Obstruction not entirely excluded. Correlate clinically.
--- NOTE | 2023-05-06 15:14 | P.CNPUL ---
History of Present Illness Consult date: 05/06/23 Chief complaint: Altered mentation History of present illness: 58-year-old male patient, history of diabetes mellitus, probably type II, presented emergency department because of severe dehydration, altered mentation. Apparently the patient was having symptoms of URI and diarrhea and he came into the emergency department lethargic, weak, altered, hypotensive and he was having significantly elevated blood sugar. He was diagnosed having an acute diabetic ketoacidosis. The patient has not been taking his insulin for more than a year. He apparently has been losing weight. He has not seen a physician for several years. Prior to that, the patient was taken high dose of insulin, exact type and doses are not known. He was having polyuria and polydipsia over the past several months and he presented to us with an acute DKA. In the emergency, he was given a liter of fluids. He is normotensive. He is slightly tachycardic still. He is afebrile. Blood work shows a white cell count of 26, hemoglobin of 13, serum bicarb less than 5 and a large anion gap metabolic acidosis with a potassium level of 2.6, his initial blood sugar was above 600, his total protein is at 3.7 with a albumin of 1.6 and the patient had a lipase level of 5925. UA was positive for ketones and glucose. Covid 19 testing was negative. The rest of the viral screen was also negative. The patient had a CAT scan of the brain and C-spine that showed no acute abnormalities. CAT scan of the chest showed no evidence of any pulmonary embolism. There was peripheral groundglass pulmonary infiltrates consistent with atypical infection such as Covid 19. Accordingly, the patient was admitted to the intensive care unit. Flat film of the abdomen was also done and it showed nonspecific abdomen with multiple dilated loops of bowel in the abdomen consistent with ileus/enteritis. Obstruction was not identified. On examination, his abdomen is nondistended. The patient is following some simple commands. He'll be started on IV fluids and insulin drip. No history of any cardiac disease. No known pulmonary disease. Does not utilize any form of respiratory medications or inhalers. Not taking any diabetic medications for now. The patient is a smoker. Does not drink alcohol. He is currently retired. He lives with his in [place]. Review of Systems ROS unobtainable: due to mental status Past Medical History Past Medical History: No Reported History, Diabetes Mellitus Past Surgical History: No Surgical Hx Reported Past Psychological History: No Psychological Hx Reported Smoking Status: Current every day smoker Medications and Allergies Home Medications Medication Instructions Recorded Confirmed Type No Known Home Medications 05/06/23 05/06/23 History Allergies Allergy/AdvReac Type Severity Reaction Status Date / Time No Known Allergies Allergy Verified 05/06/23 14:08 Physical Exam Vitals: Vital Signs Temp Pulse Resp BP Pulse Ox 05/06/23 12:23 90.7 F L 93 16 117/71 88 L Intake and Output 05/06/23 05/06/23 05/06/23 06:59 14:59 22:59 Other: Weight 63.866 kg Lethargic, weak, looks debilitated and the patient is a body mass index of 20.8, having tachypnea, breathing is nonlabored. Head exam was generally normal. There was no scleral icterus or corneal arcus. M ucous membranes were extremely dry. Eyes were sunken. Neck was supple and without jugular venous distension, thyromegaly, or carotid bruits. Carotids were easily palpable bilaterally. There was no adenopathy. Lungs were clear to auscultation and percussion, and with normal diaphragmatic excursion. No wheezes or rales were noted. Cardiac exam revealed the PMI to be normally situated and sized. The rhythm was regular and no extrasystoles were noted during several minutes of auscultation. The first and second heart sounds were normal and physiologic splitting of the second heart sound was noted. There were no murmurs, rubs, clicks, or gallops. Abdominal exam revealed normal bowel sounds. The abdomen was soft, non-tender, and without masses, organomegaly, or appreciable enlargement of the abdominal aorta. Examination of the extremities revealed easily palpable radial, femoral and pedal pulses. There was no cyanosis, clubbing or edema. Skin showing some mottling over the thigh and the right knee area. There is also evidence of trauma involving the right knee with some bruising. Pulses are diminished at the present. Neurologically, following simple commands, overall lethargic and encephalopathic. Pupils are equally reactive to light. No focal neurological deficits. Results - Laboratory Findings CBC and BMP: 05/06/23 12:41 05/06/23 12:41 PT/INR, D-dimer PT 12.2 sec (9.0-12.0) H 05/06/23 12:41 INR 1.2 (<1.2) H 05/06/23 12:41 D-Dimer 1.24 mg/L FEU (<0.60) H 05/06/23 12:41 Abnormal lab findings: Abnormal Labs 05/06/23 05/06/23 05/06/23 12:24 12:41 12:41 WBC 26.4 H RBC 4.07 L MCV 100.1 H Neutrophils # (Manual) 23.70 H Monocytes # (Manual) 1.32 H Metamyelocytes # (Man) 0.26 H Myelocytes # (Manual) 0.26 H PT INR D-Dimer VBG pH VBG pCO2 VBG HCO3 Potassium 2.6 L* Chloride 120 H Carbon Dioxide <5 L* BUN 27 H Glucose 441 H POC Glucose (mg/dL) >600 H Osmolality 331 H* Calcium 4.7 L* Magnesium 1.4 L AST 14 L Creatine Kinase 36 L Total Protein 3.7 L Albumin 1.6 L Lipase 5925 H Urine Protein Urine Glucose (UA) Urine Ketones Urine Blood Urine Bacteria Urine Mucus 05/06/23 05/06/23 05/06/23 12:41 12:48 13:33 WBC RBC MCV Neutrophils # (Manual) Monocytes # (Manual) Metamyelocytes # (Man) Myelocytes # (Manual) PT 12.2 H INR 1.2 H D-Dimer 1.24 H VBG pH 6.89 L* VBG pCO2 18 L* VBG HCO3 4 L* Potassium Chloride Carbon Dioxide BUN Glucose POC Glucose (mg/dL) Osmolality Calcium Magnesium AST Creatine Kinase Total Protein Albumin Lipase Urine Protein 1+ H Urine Glucose (UA) 4+ H Urine Ketones 3+ H Urine Blood Small H Urine Bacteria Rare H Urine Mucus Rare H - Diagnostic Findings Chest x-ray: image reviewed CT scan - chest: image reviewed Assessment and Plan Plan: Acute diabetic ketoacidosis Diabetes mellitus type 2, not receiving any insulin therapy for more than a year. I am assuming his blood sugars were poorly controlled as the patient was having polyuria and polydipsia. His presented to us with DKA Altered mentation secondary to above Hypotension with severe dehydration secondary to above, this is secondary to intravascular volume depletion and the patient is currently being assessed his IV fluids. No pressors for now Severe anion gap metabolic acidosis Acute hypokalemia Acute hypomagnesemia Acute hypomagnesemia Acute leukocytosis, likely reactive Acute pancreatitis, could be related to an underlying viral infection as the pa celia was having symptoms of URI. Scattered peripheral groundglass pulmonary infiltrates, highly suggestive of an atypical pneumonia/previous Covid 19 infection. The patient's Covid 19 testing during this current admission was negative and the rest of the viral screen was also negative Hypoproteinemia and hyperlipidemia, could be due to dietary Plan Give the patient additional 2 L of normal saline Continue IV fluids at the rate of 150 mL an hour of normal saline to the blood sugar is under 250 and following that the patient will be switched to D5 half- normal Start insulin drip per protocol Replace electrodes Monitor CMP every 4 hours Monitor anion gap Check a triglyceride level Check hemoglobin A1c Ultrasound the gallbladder Monitor lipase IV Protonix Heparin subcu for DVT prophylaxis We'll continue to follow and make further recommendations based on his progress. The patient will be admitted to the ICU for now. Time with Patient: Greater than 30
[2023-05-06] MEDS: INSULIN REGULAR 100 UNIT in SODIUM CHLORIDE 0.9% 100 ML IV SCH (15:47)
[2023-05-06] MEDS: SODIUM CHLORIDE 0.9% 1,000 ML IV SCH ×2 (15:48→21:28)
[2023-05-06 15:51] LABS: Glucose,Whole Blood >600 mg/dL (70-110)
[2023-05-06 16:27] LABS: African American GFR (CKD) 53 (>60 ml/min/1.73 sqM); Blood Urea Nitrogen 41 mg/dL (9-20); Chloride 104 mmol/L (98-107); Non-African American GFR(CKD) 46 (>60 ml/min/1.73 sqM); Potassium 4.9 mmol/L (3.5-5.1); Sodium 138 mmol/L (137-145)
[2023-05-06 16:37] LABS: VBG PH 6.87 (7.31-7.41)
[2023-05-06 16:41] LABS: Carbon Dioxide <5 mmol/L (22-30); Glucose 639 mg/dL (74-99)
[2023-05-06 17:17] LABS: Glucose,Whole Blood 597 mg/dL (70-110)
[2023-05-06 18:02] LABS: Glucose,Whole Blood >600 mg/dL (70-110)
[2023-05-06 18:02] LABS: Glucose,Whole Blood 568 mg/dL (70-110)
[2023-05-06 18:30] LABS: Glucose,Whole Blood 537 mg/dL (70-110)
[2023-05-06 20:00] LABS: Glucose,Whole Blood 436 mg/dL (70-110)
[2023-05-06 20:28] LABS: African American GFR (CKD) 66 (>60 ml/min/1.73 sqM); Anion Gap 22 mmol/L; Blood Urea Nitrogen 48 mg/dL (9-20); Chloride 110 mmol/L (98-107); Glucose 436 mg/dL (74-99); Non-African American GFR(CKD) 57 (>60 ml/min/1.73 sqM); Phosphorus 2.3 mg/dL (2.5-4.5); Potassium 4.3 mmol/L (3.5-5.1); Sodium 138 mmol/L (137-145)
[2023-05-06 20:35] LABS: Carbon Dioxide 6 mmol/L (22-30)
[2023-05-06 21:04] LABS: Glucose,Whole Blood 371 mg/dL (70-110)
[2023-05-06] MEDS ORDERED: CALCIUM GLUCONATE IN NACL 2 GM in SALINE 1 100ML.BAG IVPB ONE (21:30)
[2023-05-06 22:04] LABS: Glucose,Whole Blood 352 mg/dL (70-110)
[2023-05-06] MEDS ORDERED: ONDANSETRON 4 MG/2 ML VIAL IVP STA (22:30)
[2023-05-06] MEDS ORDERED: ONDANSETRON 4 MG/2 ML VIAL IVP PRN (22:31)
[2023-05-06 23:08] LABS: Glucose,Whole Blood 315 mg/dL (70-110)
[2023-05-07] MEDS: D5-0.45% NACL WITH KCL 20MEQ/L 1,000 ML IV SCH ×3 (00:05→16:14)
[2023-05-07 00:06] LABS: Glucose,Whole Blood 267 mg/dL (70-110)
[2023-05-07] MEDS: PIPERACILLIN-TAZOBACTAM 3.375 GM in SODIUM CHLORIDE 0.9% 100 ML IVPB SCH ×4 (00:22→23:26)
[2023-05-07] MEDS: HEPARIN SODIUM,PORCINE 5,000 UNIT/ML 1 ML VIAL SQ SCH ×4 (00:22→23:26)
[2023-05-07] MEDS: SODIUM CHLORIDE 0.9% 1,000 ML IV SCH ×3 (00:30→07:56)
[2023-05-07 01:03] LABS: Glucose,Whole Blood 313 mg/dL (70-110)
[2023-05-07 01:18] LABS: African American GFR (CKD) >90 (>60 ml/min/1.73 sqM); Anion Gap 14 mmol/L; Blood Urea Nitrogen 46 mg/dL (9-20); Calcium 9.5 mg/dL (8.4-10.2); Carbon Dioxide 14 mmol/L (22-30); Chloride 114 mmol/L (98-107); Glucose 285 mg/dL (74-99); Non-African American GFR(CKD) >90 (>60 ml/min/1.73 sqM); Phosphorus 1.3 mg/dL (2.5-4.5); Potassium 3.3 mmol/L (3.5-5.1); Sodium 142 mmol/L (137-145)
[2023-05-07] MEDS: POTASSIUM CHLORIDE 10 MEQ in WATER FOR INJECTION 1 100ML.BAG IVPB SCH ×8 (02:00→19:36)
[2023-05-07 02:05] LABS: Glucose,Whole Blood 270 mg/dL (70-110)
[2023-05-07 03:00] LABS: Glucose,Whole Blood 317 mg/dL (70-110)
[2023-05-07 03:57] LABS: Glucose,Whole Blood 282 mg/dL (70-110)
[2023-05-07 05:03] LABS: Glucose,Whole Blood 250 mg/dL (70-110)
[2023-05-07 05:47] LABS: Basophils # (A) 0.1 k/uL (0-0.2); Basophils % (A) 0 %; Eosinophils # (A) 0.1 k/uL (0-0.7); Eosinophils % (A) 0 %; HCT 49.2 % (39.0-53.0); Lymphocytes # (A) 0.9 k/uL (1.0-4.8); Lymphocytes % (A) 4 %; MCH 31.1 pg (25.0-35.0); MCHC 33.7 g/dL (31.0-37.0); Mean Platelet Volume 7.6; Monocytes # (A) 1.4 k/uL (0-1.0); Monocytes % (A) 5 %; Neutrophils # (A) 23.1 k/uL (1.3-7.7); Neutrophils % (A) 90 %; Platelet Count 338 k/uL (150-450); RBC 5.33 m/uL (4.30-5.90); RDW 13.2 % (11.5-15.5); WBC 25.7 k/uL (3.8-10.6)
[2023-05-07 05:51] LABS: HGB 16.6 gm/dL (13.0-17.5); MCV 92.3 fL (80.0-100.0)
[2023-05-07 06:02] LABS: Glucose,Whole Blood 231 mg/dL (70-110)
[2023-05-07 06:35] LABS: Anion Gap 8 mmol/L; Carbon Dioxide 16 mmol/L (22-30); Chloride 116 mmol/L (98-107); Magnesium 2.3 mg/dL (1.6-2.3); Potassium 3.8 mmol/L (3.5-5.1); Sodium 140 mmol/L (137-145)
[2023-05-07 07:04] LABS: Glucose,Whole Blood 219 mg/dL (70-110)
[2023-05-07] MEDS: INSULIN REGULAR 100 UNIT in SODIUM CHLORIDE 0.9% 100 ML IV SCH ×2 (07:27→07:30)
[2023-05-07 07:42] LABS: Lipase 4207 U/L (23-300)
[2023-05-07] MEDS: PANTOPRAZOLE 40 MG/10 ML VIAL IV SCH (08:05)
[2023-05-07 08:17] LABS: Glucose,Whole Blood 206 mg/dL (70-110)
--- NOTE | 2023-05-07 08:20 | US ---
EXAMINATION TYPE: US gallbladder DATE OF EXAM: 05/07/2023 COMPARISON: NONE CLINICAL INDICATION: Male, 58 years old with history of Elevated lipase; Poor historian Portable ICU patient TECHNIQUE: Multiple sonographic images of the right upper quadrant are obtained. FINDINGS: EXAM MEASUREMENTS: Liver Length: 15.7 cm Gallbladder Wall: 0.2 cm CBD: 0.5 cm Right Kidney: 10.5 x 5.1 x 6.4 cm TRAM INSPECTOR NOTES:Suboptimal due to patient unable to position Pancreas: Tail obscured by overlying bowel gas Liver: Limited, No prominent masses or lesions seen at time of scan. Gallbladder: Supine images taken only due to unable to turn patient. No stones, wall thickening or sludge visualized at time of scan. Evidence for sonographic Lomas's sign: neg CBD: Limited due to bowel gas Right Kidney: No prominent hydronephrosis or masses seen. Limited due to bowel gas. IMPRESSION: Limited examination. No distinct abnormality appreciated at this time.
[2023-05-07 08:59] LABS: Estimated Average Glucose >470 mg/dL
[2023-05-07 09:03] LABS: Glucose,Whole Blood 195 mg/dL (70-110)
[2023-05-07 09:08] LABS: African American GFR (CKD) >90 (>60 ml/min/1.73 sqM); Anion Gap 8 mmol/L; Blood Urea Nitrogen 38 mg/dL (9-20); Calcium 8.6 mg/dL (8.4-10.2); Carbon Dioxide 14 mmol/L (22-30); Chloride 118 mmol/L (98-107); Glucose 198 mg/dL (74-99); Non-African American GFR(CKD) >90 (>60 ml/min/1.73 sqM); Sodium 140 mmol/L (137-145)
[2023-05-07 09:10] LABS: Potassium 4.2 mmol/L (3.5-5.1)
[2023-05-07 10:14] LABS: Glucose,Whole Blood 186 mg/dL (70-110)
--- NOTE | 2023-05-07 10:32 | P.PN ---
Subjective Progress Note Date: 05/07/23 58-year-old male patient, history of diabetes mellitus, probably type II, presented emergency department because of severe dehydration, altered mentation. Apparently the patient was having symptoms of URI and diarrhea and he came into the emergency department lethargic, weak, altered, hypotensive and he was having significantly elevated blood sugar. He was diagnosed having an acute diabetic ketoacidosis. The patient has not been taking his insulin for more than a year. He apparently has been losing weight. He has not seen a physician for several years. Prior to that, the patient was taken high dose of insulin, exact type and doses are not known. He was having polyuria and polydipsia over the past several months and he presented to us with an acute DKA. In the emergency, he was given a liter of fluids. He is normotensive. He is slightly tachycardic still. He is afebrile. Blood work shows a white cell count of 26, hemoglobin of 13, serum bicarb less than 5 and a large anion gap metabolic acidosis with a potassium level of 2.6, his initial blood sugar was above 600, his total protein is at 3.7 with a albumin of 1.6 and the patient had a lipase level of 5925. UA was positive for ketones and glucose. Covid 19 testing was negative. The rest of the viral screen was also negative. The patient had a CAT scan of the brain and C-spine that showed no acute abnormalities. CAT scan of the chest showed no evidence of any pulmonary embolism. There was peripheral groundglass pulmonary infiltrates consistent with atypical infection such as Covid 19. Accordingly, the patient was admitted to the intensive care unit. Flat film of the abdomen was also done and it showed nonspecific abdomen with multiple dilated loops of bowel in the abdomen consistent with ileus/enteritis. Obstruction was not identified. On examination, his abdomen is nondistended. The patient is following some simple commands. He'll be started on IV fluids and insulin drip. No history of any cardiac disease. No known pulmonary disease. Does not utilize any form of respiratory medications or inhalers. Not taking any diabetic medications for now. The patient is a smoker. Does not drink alcohol. He is currently retired. He lives with his in [place]. On 05/07/2023, the patient is being seen for a follow-up. Is much more awake and alert compared to yesterday and is communicating. He is been aggressively resuscitated with IV fluids. 3 L of IV fluid was given and subsequently he was placed on normal saline at the rate of 200 mL an hour and this morning the patient is on D5 half-normal saline. The patient is also on insulin drip which is running at 0.5 units an hour. Blood sugars under better control. Is still elevated. The patient's anion gap has improved and anion gap is down to 8. Nevertheless, the serum bicarb is still low at 14. The patient continues to have leukocytosis. Potassium is better place and is up to 4.2. Magnesium is being replaced, phosphorus is being replaced. Pro-calcitonin to 0.6. Lipase level is down to 4207 and ultrasound the gallbladder shows limited visualization of the common bile duct. No evidence of any hydronephrosis. Gallbladder shows no stones or wall thickening. No other abnormalities noted. On a separate note, further detailed examination of the patient revealed that the patient has deep tissue injury over the right buttocks and an underlying collection. Rule out development of an underlying abscess. Fasting lipid profile is pending. Hemoglobin A1c still pending. Objective - Vital Signs Vital signs: Vital Signs Temp 99.5 F 05/07/23 08:00 Pulse 108 H 05/07/23 08:00 Resp 18 05/07/23 08:00 BP 151/91 05/07/23 08:00 Pulse Ox 97 05/07/23 08:00 FiO2 Intake & Output 05/06/23 05/07/23 05/07/23 18:59 06:59 18:59 Intake Total 3741.000 340 Output Total 955 150 Balance 2786.000 190 Weight 63.866 kg 61.961 kg Intake: IV 2290 340 D5-0.45% NaCl with KCl 1050 300 20Meq/l 1,000 ml @ 150 mls/hr IV .Q6H40M [facility] Rx# :[id number] Potassium Chloride 10 meq 300 In Water For Injection 1 100ml.bag @ 100 mls/hr IVPB Q1HR [facility] Rx#: [id number] Sodium Chloride 0.9% 1, 800 000 ml @ 200 mls/hr IV . Q5H [facility] Rx#:[id number] normal saline 140 40 Intake, IV Titration 1451.000 Amount Calcium Gluconate in NaCl 100 2 gm In Saline 1 100ml. bag @ 100 mls/hr IVPB ONCE ONE Rx#:[id number] D5-0.45% NaCl with KCl 750 20Meq/l 1,000 ml @ 150 mls/hr IV .[id number] [facility] Rx# :[id number] Insulin Regular 100 unit 101.000 In Sodium Chloride 0.9% 100 ml @ 0.1 UNITS/KG/HR 6.45 mls/hr IV .[id number] [facility] Rx#:[id number] Potassium Chloride 10 meq 300 In Water For Injection 1 100ml.bag @ 100 mls/hr IVPB Q1HR [facility] Rx#: [id number] Sodium Chloride 0.9% 1, 200 000 ml @ 200 mls/hr IV . Q5H [facility] Rx#:[id number] Output: Urine 955 150 Other: Voiding Method Indwelling Catheter Indwelling Catheter - Exam Lethargic, weak, looks debilitated and the patient is a body mass index of 20.8, having tachypnea, breathing is nonlabored. The patient is currently on room air oxygen with a pulse ox of 97%. Much more awake and alert compared to yesterday. Head exam was generally normal. There was no scleral icterus or corneal arcus. Mucous membranes were extremely dry. Eyes were sunken. Neck was supple and without jugular venous distension, thyromegaly, or carotid bruits. Carotids were easily palpable bilaterally. There was no adenopathy. Lungs were clear to auscultation and percussion, and with normal diaphragmatic excursion. No wheezes or rales were noted. Cardiac exam revealed the PMI to be normally situated and sized. The rhythm was regular and no extrasystoles were noted during several minutes of auscultation. The first and second heart sounds were normal and physiologic splitting of the second heart sound was noted. There were no murmurs, rubs, clicks, or gallops. Abdominal exam revealed normal bowel sounds. The abdomen was soft, non-tender, and without masses, organomegaly, or appreciable enlargement of the abdominal aorta. Examination of the extremities revealed easily palpable radial, femoral and pedal pulses. There was no cyanosis, clubbing or edema. Skin showing some mottling over the thigh and the right knee area. There is also evidence of trauma involving the right knee with some bruising. Pulses are diminished at the present. There is evidence of a deep tissue injury over the right buttocks with underlying collection which could be fluids/sepsis. Overlying skin is necrotic. Neurologically, following simple commands, awake and communicating, less lethargic compared to yesterday. Pupils are equally reactive to light. No focal neurological deficits. - Labs CBC & Chem 7: 05/07/23 05:07 05/07/23 08:45 Labs: Abnormal Lab Results - Last 24 Hours (Table) 05/06/23 05/06/23 05/06/23 Range/Units 12:24 12:41 12:41 WBC 26.4 H (3.8-10.6) k/uL RBC 4.07 L (4.30-5.90) m/uL MCV 100.1 H (80.0-100.0) fL Neutrophils # (1.3-7.7) k/uL Neutrophils # (Manual) 23.70 H (1.3-7.7) k/uL Lymphocytes # (1.0-4.8) k/uL Monocytes # (0-1.0) k/uL Monocytes # (Manual) 1.32 H (0-1.0) k/uL Metamyelocytes # (Man) 0.26 H (0) k/uL Myelocytes # (Manual) 0.26 H (0) k/uL PT (9.0-12.0) sec INR (<1.2) D-Dimer (<0.60) mg/L FEU VBG pH (7.31-7.41) VBG pCO2 (37-51) mmHg VBG HCO3 (24-28) mmol/L Potassium 2.6 L* (3.5-5.1) mmol/L Chloride 120 H (98-107) mmol/L Carbon Dioxide <5 L* (22-30) mmol/L BUN 27 H (9-20) mg/dL Creatinine (0.66-1.25) mg/dL Glucose 441 H (74-99) mg/dL POC Glucose (mg/dL) >600 H (70-110) mg/dL Osmolality 331 H* (280-301) mosm/kg Plasma Lactic Acid Héctor (0.7-2.0) mmol/L Calcium 4.7 L* (8.4-10.2) mg/dL Ionized Calcium Bayron (4.5-5.3) mg/dL Phosphorus (2.5-4.5) mg/dL Magnesium 1.4 L (1.6-2.3) mg/dL AST 14 L (17-59) U/L Creatine Kinase 36 L (55-170) U/L Total Protein 3.7 L (6.3-8.2) g/dL Albumin 1.6 L (3.5-5.0) g/dL Lipase 5925 H (23-300) U/L Procalcitonin (0.02-0.09) ng/mL Urine Protein (Negative) Urine Glucose (UA) (Negative) Urine Ketones (Negative) Urine Blood (Negative) Urine Bacteria (None) /hpf Urine Mucus (None) /hpf 05/06/23 05/06/23 05/06/23 Range/Units 12:41 12:41 12:48 WBC (3.8-10.6) k/uL RBC (4.30-5.90) m/uL MCV (80.0-100.0) fL Neutrophils # (1.3-7.7) k/uL Neutrophils # (Manual) (1.3-7.7) k/uL Lymphocytes # (1.0-4.8) k/uL Monocytes # (0-1.0) k/uL Monocytes # (Manual) (0-1.0) k/uL Metamyelocytes # (Man) (0) k/uL Myelocytes # (Manual) (0) k/uL PT 12.2 H (9.0-12.0) sec INR 1.2 H (<1.2) D-Dimer 1.24 H (<0.60) mg/L FEU VBG pH 6.89 L* (7.31-7.41) VBG pCO2 18 L* (37-51) mmHg VBG HCO3 4 L* (24-28) mmol/L Potassium (3.5-5.1) mmol/L Chloride (98-107) mmol/L Carbon Dioxide (22-30) mmol/L BUN (9-20) mg/dL Creatinine (0.66-1.25) mg/dL Glucose (74-99) mg/dL POC Glucose (mg/dL) (70-110) mg/dL Osmolality (280-301) mosm/kg Plasma Lactic Acid Héctor (0.7-2.0) mmol/L Calcium (8.4-10.2) mg/dL Ionized Calcium Bayron (4.5-5.3) mg/dL Phosphorus (2.5-4.5) mg/dL Magnesium (1.6-2.3) mg/dL AST (17-59) U/L Creatine Kinase (55-170) U/L Total Protein (6.3-8.2) g/dL Albumin (3.5-5.0) g/dL Lipase (23-300) U/L Procalcitonin 0.62 H (0.02-0.09) ng/mL Urine Protein (Negative) Urine Glucose (UA) (Negative) Urine Ketones (Negative) Urine Blood (Negative) Urine Bacteria (None) /hpf Urine Mucus (None) /hpf 05/06/23 05/06/23 05/06/23 Range/Units 13:33 15:19 15:49 WBC (3.8-10.6) k/uL RBC (4.30-5.90) m/uL MCV (80.0-100.0) fL Neutrophils # (1.3-7.7) k/uL Neutrophils # (Manual) (1.3-7.7) k/uL Lymphocytes # (1.0-4.8) k/uL Monocytes # (0-1.0) k/uL Monocytes # (Manual) (0-1.0) k/uL Metamyelocytes # (Man) (0) k/uL Myelocytes # (Manual) (0) k/uL PT (9.0-12.0) sec INR (<1.2) D-Dimer (<0.60) mg/L FEU VBG pH 6.87 L* (7.31-7.41) VBG pCO2 24 L (37-51) mmHg VBG HCO3 4 L* (24-28) mmol/L Potassium (3.5-5.1) mmol/L Chloride (98-107) mmol/L Carbon Dioxide (22-30) mmol/L BUN (9-20) mg/dL Creatinine (0.66-1.25) mg/dL Glucose (74-99) mg/dL POC Glucose (mg/dL) (70-110) mg/dL Osmolality (280-301) mosm/kg Plasma Lactic Acid Héctor 2.1 H* (0.7-2.0) mmol/L Calcium (8.4-10.2) mg/dL Ionized Calcium Bayron (4.5-5.3) mg/dL Phosphorus (2.5-4.5) mg/dL Magnesium (1.6-2.3) mg/dL AST (17-59) U/L Creatine Kinase (55-170) U/L Total Protein (6.3-8.2) g/dL Albumin (3.5-5.0) g/dL Lipase (23-300) U/L Procalcitonin (0.02-0.09) ng/mL Urine Protein 1+ H (Negative) Urine Glucose (UA) 4+ H (Negative) Urine Ketones 3+ H (Negative) Urine Blood Small H (Negative) Urine Bacteria Rare H (None) /hpf Urine Mucus Rare H (None) /hpf 05/06/23 05/06/23 05/06/23 Range/Units 15:49 15:50 17:15 WBC (3.8-10.6) k/uL RBC (4.30-5.90) m/uL MCV (80.0-100.0) fL Neutrophils # (1.3-7.7) k/uL Neutrophils # (Manual) (1.3-7.7) k/uL Lymphocytes # (1.0-4.8) k/uL Monocytes # (0-1.0) k/uL Monocytes # (Manual) (0-1.0) k/uL Metamyelocytes # (Man) (0) k/uL Myelocytes # (Manual) (0) k/uL PT (9.0-12.0) sec INR (<1.2) D-Dimer (<0.60) mg/L FEU VBG pH (7.31-7.41) VBG pCO2 (37-51) mmHg VBG HCO3 (24-28) mmol/L Potassium (3.5-5.1) mmol/L Chloride (98-107) mmol/L Carbon Dioxide <5 L* (22-30) mmol/L BUN 41 H (9-20) mg/dL Creatinine 1.62 H (0.66-1.25) mg/dL Glucose 639 H* (74-99) mg/dL POC Glucose (mg/dL) >600 H 597 H (70-110) mg/dL Osmolality (280-301) mosm/kg Plasma Lactic Acid Héctor (0.7-2.0) mmol/L Calcium (8.4-10.2) mg/dL Ionized Calcium Bayron (4.5-5.3) mg/dL Phosphorus 6.0 H (2.5-4.5) mg/dL Magnesium (1.6-2.3) mg/dL AST (17-59) U/L Creatine Kinase (55-170) U/L Total Protein (6.3-8.2) g/dL Albumin (3.5-5.0) g/dL Lipase (23-300) U/L Procalcitonin (0.02-0.09) ng/mL Urine Protein (Negative) Urine Glucose (UA) (Negative) Urine Ketones (Negative) Urine Blood (Negative) Urine Bacteria (None) /hpf Urine Mucus (None) /hpf 05/06/23 05/06/23 05/06/23 Range/Units 17:58 18:00 18:28 WBC (3.8-10.6) k/uL RBC (4.30-5.90) m/uL MCV (80.0-100.0) fL Neutrophils # (1.3-7.7) k/uL Neutrophils # (Manual) (1.3-7.7) k/uL Lymphocytes # (1.0-4.8) k/uL Monocytes # (0-1.0) k/uL Monocytes # (Manual) (0-1.0) k/uL Metamyelocytes # (Man) (0) k/uL Myelocytes # (Manual) (0) k/uL PT (9.0-12.0) sec INR (<1.2) D-Dimer (<0.60) mg/L FEU VBG pH (7.31-7.41) VBG pCO2 (37-51) mmHg VBG HCO3 (24-28) mmol/L Potassium (3.5-5.1) mmol/L Chloride (98-107) mmol/L Carbon Dioxide (22-30) mmol/L BUN (9-20) mg/dL Creatinine (0.66-1.25) mg/dL Glucose (74-99) mg/dL POC Glucose (mg/dL) >600 H 568 H 537 H (70-110) mg/dL Osmolality (280-301) mosm/kg Plasma Lactic Acid Héctor (0.7-2.0) mmol/L Calcium (8.4-10.2) mg/dL Ionized Calcium Bayron (4.5-5.3) mg/dL Phosphorus (2.5-4.5) mg/dL Magnesium (1.6-2.3) mg/dL AST (17-59) U/L Creatine Kinase (55-170) U/L Total Protein (6.3-8.2) g/dL Albumin (3.5-5.0) g/dL Lipase (23-300) U/L Procalcitonin (0.02-0.09) ng/mL Urine Protein (Negative) Urine Glucose (UA) (Negative) Urine Ketones (Negative) Urine Blood (Negative) Urine Bacteria (None) /hpf Urine Mucus (None) /hpf 05/06/23 05/06/23 05/06/23 Range/Units 19:45 19:57 21:02 WBC (3.8-10.6) k/uL RBC (4.30-5.90) m/uL MCV (80.0-100.0) fL Neutrophils # (1.3-7.7) k/uL Neutrophils # (Manual) (1.3-7.7) k/uL Lymphocytes # (1.0-4.8) k/uL Monocytes # (0-1.0) k/uL Monocytes # (Manual) (0-1.0) k/uL Metamyelocytes # (Man) (0) k/uL Myelocytes # (Manual) (0) k/uL PT (9.0-12.0) sec INR (<1.2) D-Dimer (<0.60) mg/L FEU VBG pH (7.31-7.41) VBG pCO2 (37-51) mmHg VBG HCO3 (24-28) mmol/L Potassium (3.5-5.1) mmol/L Chloride 110 H (98-107) mmol/L Carbon Dioxide 6 L* (22-30) mmol/L BUN 48 H (9-20) mg/dL Creatinine 1.36 H (0.66-1.25) mg/dL Glucose 436 H (74-99) mg/dL POC Glucose (mg/dL) 436 H 371 H (70-110) mg/dL Osmolality (280-301) mosm/kg Plasma Lactic Acid Héctor (0.7-2.0) mmol/L Calcium (8.4-10.2) mg/dL Ionized Calcium Bayron (4.5-5.3) mg/dL Phosphorus 2.3 L (2.5-4.5) mg/dL Magnesium (1.6-2.3) mg/dL AST (17-59) U/L Creatine Kinase (55-170) U/L Total Protein (6.3-8.2) g/dL Albumin (3.5-5.0) g/dL Lipase (23-300) U/L Procalcitonin (0.02-0.09) ng/mL Urine Protein (Negative) Urine Glucose (UA) (Negative) Urine Ketones (Negative) Urine Blood (Negative) Urine Bacteria (None) /hpf Urine Mucus (None) /hpf 05/06/23 05/06/23 05/07/23 Range/Units 22:03 23:07 00:04 WBC (3.8-10.6) k/uL RBC (4.30-5.90) m/uL MCV (80.0-100.0) fL Neutrophils # (1.3-7.7) k/uL Neutrophils # (Manual) (1.3-7.7) k/uL Lymphocytes # (1.0-4.8) k/uL Monocytes # (0-1.0) k/uL Monocytes # (Manual) (0-1.0) k/uL Metamyelocytes # (Man) (0) k/uL Myelocytes # (Manual) (0) k/uL PT (9.0-12.0) sec INR (<1.2) D-Dimer (<0.60) mg/L FEU VBG pH (7.31-7.41) VBG pCO2 (37-51) mmHg VBG HCO3 (24-28) mmol/L Potassium (3.5-5.1) mmol/L Chloride (98-107) mmol/L Carbon Dioxide (22-30) mmol/L BUN (9-20) mg/dL Creatinine (0.66-1.25) mg/dL Glucose (74-99) mg/dL POC Glucose (mg/dL) 352 H 315 H 267 H (70-110) mg/dL Osmolality (280-301) mosm/kg Plasma Lactic Acid Héctor (0.7-2.0) mmol/L Calcium (8.4-10.2) mg/dL Ionized Calcium Bayron (4.5-5.3) mg/dL Phosphorus (2.5-4.5) mg/dL Magnesium (1.6-2.3) mg/dL AST (17-59) U/L Creatine Kinase (55-170) U/L Total Protein (6.3-8.2) g/dL Albumin (3.5-5.0) g/dL Lipase (23-300) U/L Procalcitonin (0.02-0.09) ng/mL Urine Protein (Negative) Urine Glucose (UA) (Negative) Urine Ketones (Negative) Urine Blood (Negative) Urine Bacteria (None) /hpf Urine Mucus (None) /hpf 05/07/23 05/07/23 05/07/23 Range/Units 00:25 00:25 01:01 WBC (3.8-10.6) k/uL RBC (4.30-5.90) m/uL MCV (80.0-100.0) fL Neutrophils # (1.3-7.7) k/uL Neutrophils # (Manual) (1.3-7.7) k/uL Lymphocytes # (1.0-4.8) k/uL Monocytes # (0-1.0) k/uL Monocytes # (Manual) (0-1.0) k/uL Metamyelocytes # (Man) (0) k/uL Myelocytes # (Manual) (0) k/uL PT (9.0-12.0) sec INR (<1.2) D-Dimer (<0.60) mg/L FEU VBG pH (7.31-7.41) VBG pCO2 (37-51) mmHg VBG HCO3 (24-28) mmol/L Potassium 3.3 L (3.5-5.1) mmol/L Chloride 114 H (98-107) mmol/L Carbon Dioxide 14 L (22-30) mmol/L BUN 46 H (9-20) mg/dL Creatinine (0.66-1.25) mg/dL Glucose 285 H (74-99) mg/dL POC Glucose (mg/dL) 313 H (70-110) mg/dL Osmolality (280-301) mosm/kg Plasma Lactic Acid Héctor (0.7-2.0) mmol/L Calcium (8.4-10.2) mg/dL Ionized Calcium Bayron 5.7 H (4.5-5.3) mg/dL Phosphorus 1.3 L (2.5-4.5) mg/dL Magnesium (1.6-2.3) mg/dL AST (17-59) U/L Creatine Kinase (55-170) U/L Total Protein (6.3-8.2) g/dL Albumin (3.5-5.0) g/dL Lipase (23-300) U/L Procalcitonin (0.02-0.09) ng/mL Urine Protein (Negative) Urine Glucose (UA) (Negative) Urine Ketones (Negative) Urine Blood (Negative) Urine Bacteria (None) /hpf Urine Mucus (None) /hpf 05/07/23 05/07/23 05/07/23 Range/Units 02:03 02:58 03:55 WBC (3.8-10.6) k/uL RBC (4.30-5.90) m/uL MCV (80.0-100.0) fL Neutrophils # (1.3-7.7) k/uL Neutrophils # (Manual) (1.3-7.7) k/uL Lymphocytes # (1.0-4.8) k/uL Monocytes # (0-1.0) k/uL Monocytes # (Manual) (0-1.0) k/uL Metamyelocytes # (Man) (0) k/uL Myelocytes # (Manual) (0) k/uL PT (9.0-12.0) sec INR (<1.2) D-Dimer (<0.60) mg/L FEU VBG pH (7.31-7.41) VBG pCO2 (37-51) mmHg VBG HCO3 (24-28) mmol/L Potassium (3.5-5.1) mmol/L Chloride (98-107) mmol/L Carbon Dioxide (22-30) mmol/L BUN (9-20) mg/dL Creatinine (0.66-1.25) mg/dL Glucose (74-99) mg/dL POC Glucose (mg/dL) 270 H 317 H 282 H (70-110) mg/dL Osmolality (280-301) mosm/kg Plasma Lactic Acid Héctor (0.7-2.0) mmol/L Calcium (8.4-10.2) mg/dL Ionized Calcium Bayron (4.5-5.3) mg/dL Phosphorus (2.5-4.5) mg/dL Magnesium (1.6-2.3) mg/dL AST (17-59) U/L Creatine Kinase (55-170) U/L Total Protein (6.3-8.2) g/dL Albumin (3.5-5.0) g/dL Lipase (23-300) U/L Procalcitonin (0.02-0.09) ng/mL Urine Protein (Negative) Urine Glucose (UA) (Negative) Urine Ketones (Negative) Urine Blood (Negative) Urine Bacteria (None) /hpf Urine Mucus (None) /hpf 05/07/23 05/07/23 05/07/23 Range/Units 05:02 05:07 05:07 WBC 25.7 H (3.8-10.6) k/uL RBC (4.30-5.90) m/uL MCV (80.0-100.0) fL Neutrophils # 23.1 H (1.3-7.7) k/uL Neutrophils # (Manual) (1.3-7.7) k/uL Lymphocytes # 0.9 L (1.0-4.8) k/uL Monocytes # 1.4 H (0-1.0) k/uL Monocytes # (Manual) (0-1.0) k/uL Metamyelocytes # (Man) (0) k/uL Myelocytes # (Manual) (0) k/uL PT (9.0-12.0) sec INR (<1.2) D-Dimer (<0.60) mg/L FEU VBG pH (7.31-7.41) VBG pCO2 (37-51) mmHg VBG HCO3 (24-28) mmol/L Potassium (3.5-5.1) mmol/L Chloride (98-107) mmol/L Carbon Dioxide (22-30) mmol/L BUN (9-20) mg/dL Creatinine (0.66-1.25) mg/dL Glucose (74-99) mg/dL POC Glucose (mg/dL) 250 H (70-110) mg/dL Osmolality (280-301) mosm/kg Plasma Lactic Acid Héctor (0.7-2.0) mmol/L Calcium (8.4-10.2) mg/dL Ionized Calcium Bayron 5.5 H (4.5-5.3) mg/dL Phosphorus (2.5-4.5) mg/dL Magnesium (1.6-2.3) mg/dL AST (17-59) U/L Creatine Kinase (55-170) U/L Total Protein (6.3-8.2) g/dL Albumin (3.5-5.0) g/dL Lipase (23-300) U/L Procalcitonin (0.02-0.09) ng/mL Urine Protein (Negative) Urine Glucose (UA) (Negative) Urine Ketones (Negative) Urine Blood (Negative) Urine Bacteria (None) /hpf Urine Mucus (None) /hpf 05/07/23 05/07/23 05/07/23 Range/Units 05:07 06:02 07:02 WBC (3.8-10.6) k/uL RBC (4.30-5.90) m/uL MCV (80.0-100.0) fL Neutrophils # (1.3-7.7) k/uL Neutrophils # (Manual) (1.3-7.7) k/uL Lymphocytes # (1.0-4.8) k/uL Monocytes # (0-1.0) k/uL Monocytes # (Manual) (0-1.0) k/uL Metamyelocytes # (Man) (0) k/uL Myelocytes # (Manual) (0) k/uL PT (9.0-12.0) sec INR (<1.2) D-Dimer (<0.60) mg/L FEU VBG pH (7.31-7.41) VBG pCO2 (37-51) mmHg VBG HCO3 (24-28) mmol/L Potassium (3.5-5.1) mmol/L Chloride 116 H (98-107) mmol/L Carbon Dioxide 16 L (22-30) mmol/L BUN (9-20) mg/dL Creatinine (0.66-1.25) mg/dL Glucose (74-99) mg/dL POC Glucose (mg/dL) 231 H 219 H (70-110) mg/dL Osmolality (280-301) mosm/kg Plasma Lactic Acid Héctor (0.7-2.0) mmol/L Calcium (8.4-10.2) mg/dL Ionized Calcium Bayron (4.5-5.3) mg/dL Phosphorus (2.5-4.5) mg/dL Magnesium (1.6-2.3) mg/dL AST (17-59) U/L Creatine Kinase (55-170) U/L Total Protein (6.3-8.2) g/dL Albumin (3.5-5.0) g/dL Lipase 4207 H (23-300) U/L Procalcitonin (0.02-0.09) ng/mL Urine Protein (Negative) Urine Glucose (UA) (Negative) Urine Ketones (Negative) Urine Blood (Negative) Urine Bacteria (None) /hpf Urine Mucus (None) /hpf 05/07/23 Range/Units 08:14 WBC (3.8-10.6) k/uL RBC (4.30-5.90) m/uL MCV (80.0-100.0) fL Neutrophils # (1.3-7.7) k/uL Neutrophils # (Manual) (1.3-7.7) k/uL Lymphocytes # (1.0-4.8) k/uL Monocytes # (0-1.0) k/uL Monocytes # (Manual) (0-1.0) k/uL Metamyelocytes # (Man) (0) k/uL Myelocytes # (Manual) (0) k/uL PT (9.0-12.0) sec INR (<1.2) D-Dimer (<0.60) mg/L FEU VBG pH (7.31-7.41) VBG pCO2 (37-51) mmHg VBG HCO3 (24-28) mmol/L Potassium (3.5-5.1) mmol/L Chloride (98-107) mmol/L Carbon Dioxide (22-30) mmol/L BUN (9-20) mg/dL Creatinine (0.66-1.25) mg/dL Glucose (74-99) mg/dL POC Glucose (mg/dL) 206 H (70-110) mg/dL Osmolality (280-301) mosm/kg Plasma Lactic Acid Héctor (0.7-2.0) mmol/L Calcium (8.4-10.2) mg/dL Ionized Calcium Bayron (4.5-5.3) mg/dL Phosphorus (2.5-4.5) mg/dL Magnesium (1.6-2.3) mg/dL AST (17-59) U/L Creatine Kinase (55-170) U/L Total Protein (6.3-8.2) g/dL Albumin (3.5-5.0) g/dL Lipase (23-300) U/L Procalcitonin (0.02-0.09) ng/mL Urine Protein (Negative) Urine Glucose (UA) (Negative) Urine Ketones (Negative) Urine Blood (Negative) Urine Bacteria (None) /hpf Urine Mucus (None) /hpf Assessment and Plan Plan: Acute diabetic ketoacidosis, anion gap is closed and the patient,the patient continues to have some underlying metabolic acidosis with a bicarb of 14. The patient remains on insulin drip. Diabetes mellitus type 2, not receiving any insulin therapy for more than a year. I am assuming his blood sugars were poorly controlled as the patient was having polyuria and polydipsia. awaiting HbA1c Altered mentation secondary to above, improving Hypotension with severe dehydration secondary to above, this is secondary to intravascular volume depletion and the patient is currently being assessed his IV fluids. No pressors for now, improving Severe anion gap metabolic acidosis Acute hypokalemia, treated Acute hypomagnesemia, treated Acute hypomagnesemia Acute leukocytosis, likely reactive deep tissue injury to his right buttocks, will need a surgical evaluation, rule out underlying abscess. Acute pancreatitis, could be related to an underlying viral infection as the patient was having symptoms of URI.the lipase level is improving and the ultrasound the gallbladder showed no acute abnormalities. Scattered peripheral groundglass pulmonary infiltrates, highly suggestive of an atypical pneumonia/previous Covid 19 infection. The patient's Covid 19 testing during this current admission was negative and the rest of the viral screen was also negative Hypoproteinemia and hyperlipidemia, could be due to dietary Plan we'll continue the insulin drip for now to the patient's serum bicarb is improved, noted a gap is closed electrolytes have improved Monitor CMP every 4 hours Monitor anion gap Check a triglyceride level Check hemoglobin A1c Ultrasound the gallbladder, is negative Monitor lipase, improving Continue IV Zosyn and consult general surgery regarding the deep tissue injury to his right buttocks, rule out underlying abscess. IV Protonix Heparin subcu for DVT prophylaxis We'll continue to follow and make further recommendations based on his progress. The patient will be admitted to the ICU for now.
[2023-05-07 11:04] LABS: Glucose,Whole Blood 151 mg/dL (70-110)
[2023-05-07 12:02] LABS: Glucose,Whole Blood 163 mg/dL (70-110)
[2023-05-07 13:00] LABS: Glucose,Whole Blood 124 mg/dL (70-110)
[2023-05-07 14:09] LABS: Glucose,Whole Blood 117 mg/dL (70-110)
[2023-05-07 15:07] LABS: Glucose,Whole Blood 119 mg/dL (70-110)
--- NOTE | 2023-05-07 15:11 | P.GSCN ---
History of Present Illness Consult date: 05/07/23 History of present illness: CHIEF COMPLAINT: DKA HISTORY OF PRESENT ILLNESS: This is a 58-year-old male who was admitted to the hospital with evidence of DKA and is currently in the ICU. Patient altered mental status, hypotensive and dehydration on admission. Patient received multiple fluid boluses. Hemoglobin A1c greater than 18. Surgical service consulted for for left gluteal abscess. Patient reports presence of these wounds for about 3 weeks. They're tender with palpation and there is drainage noted. Skin is darkened. Apparently he has had prior history of abscess on 5 that he managed at home on his own. No prior history of MRSA. Patient is a known history of diabetes and has not been taking his insulin at home. PAST MEDICAL HISTORY: See below PAST SURGICAL HISTORY: See below MEDICATIONS: See below ALLERGIES: See below SOCIAL HISTORY: No illicit drug use. REVIEW OF SYSTEMS: CONSTITUTIONAL: Denies fever or chills. HEENT: Denies blurred vision, vision changes, or eye pain. Denies hemoptysis CARDIOVASCULAR: Denies chest pain or pressure. RESPIRATORY: No shortness of breath. GASTROINTESTINAL: See HPI for pertinent findings HEMATOLOGIC: Denies bleeding disorders. GENITOURINARY: Denies any blood in urine or increased urinary frequency. SKIN: Denies pruitis. Denies rash. PHYSICAL EXAM: VITAL SIGNS: Reviewed GENERAL: Well-developed in no acute distress. ABDOMEN: Soft. Nondistended. Nontender NEUROLOGIC: Alert and oriented. Cranial nerves II through XII grossly intact. Skin: Left gluteal abscess. Areas indurated fluctuant tender with palpation. Near the anus on the left gluteal area there is black areas of skin and 3 areas. The sacral area is also bruised red and has a small area that is black and. On the blackened areas when pushed purulent drainage is able to be expressed. Patient does have a small area of skin breakdown on the right lateral gluteal. LABORATORY DATA: WBC 25.7 hgb 16.6 platelets 338 Sodium 140 potassium 2.6 up to 4.2 CO2 6 up to 14 Creatinine 0.52 Glucose down to 117 Hemoglobin A1c greater than 18 IMAGING: Gallbladder ultrasound no distinct abnormality appreciated at this time. Exam limited KUB x-ray nonspecific abdomen. Multiple dilated bowel loops in the abdomen may be related to an ileus/enteritis. Chest CT no evidence of PE. Peripheral groundglass pulmonary opacities consistent with atypical pneumonia infection such as COVID-19. Esophageal wall thickening correlate for esophagitis Computed tomography scan head no acute process ASSESSMENT: 1. Left gluteal abscess/wound 2. DKA PLAN: -Further recommendations forthcoming per surgeon regarding surgical intervention of left gluteal abscess -Keep pressure off of the area -Continue antibiotics -Continue supportive care -Continue DKA management Thank you for this consultation Physician Provider Education Specialist note has been reviewed by physician. Signing provider agrees with the documented findings, assessment, and plan of care. Past Medical History Past Medical History: No Reported History, Heart Failure, Diabetes Mellitus History of Any Multi-Drug Resistant Organisms: None Reported Past Surgical History: No Surgical Hx Reported Past Anesthesia/Blood Transfusion Reactions: No Reported Reaction Past Psychological History: No Psychological Hx Reported Smoking Status: Current every day smoker - Past Family History Father Family Medical History: Cancer Mother Family Medical History: Congestive Heart Failure (CHF), Diabetes Mellitus Medications and Allergies Home Medications Medication Instructions Recorded Confirmed Type No Known Home Medications 05/06/23 05/06/23 History Allergies Allergy/AdvReac Type Severity Reaction Status Date / Time No Known Allergies Allergy Verified 05/06/23 14:08 Surgical - Exam Vital Signs Temp Pulse Resp BP Pulse Ox 90.7 F L 93 16 117/71 88 L 05/06/23 12:23 05/06/23 12:23 05/06/23 12:23 05/06/23 12:23 05/06/23 12:23 Results - Labs 05/07/23 05:07 05/07/23 08:45 Abnormal Lab Results - Last 24 Hours (Table) 05/06/23 05/06/23 05/06/23 Range/Units 12:41 12:41 12:41 WBC (3.8-10.6) k/uL Neutrophils # (1.3-7.7) k/uL Neutrophils # (Manual) 23.70 H (1.3-7.7) k/uL Lymphocytes # (1.0-4.8) k/uL Monocytes # (0-1.0) k/uL Monocytes # (Manual) 1.32 H (0-1.0) k/uL Metamyelocytes # (Man) 0.26 H (0) k/uL Myelocytes # (Manual) 0.26 H (0) k/uL VBG pH (7.31-7.41) VBG pCO2 (37-51) mmHg VBG HCO3 (24-28) mmol/L Potassium (3.5-5.1) mmol/L Chloride (98-107) mmol/L Carbon Dioxide (22-30) mmol/L BUN (9-20) mg/dL Creatinine (0.66-1.25) mg/dL Glucose (74-99) mg/dL POC Glucose (mg/dL) (70-110) mg/dL Hemoglobin A1c (<=6.0) % Osmolality 331 H* (280-301) mosm/kg Plasma Lactic Acid Héctor (0.7-2.0) mmol/L Ionized Calcium Bayron (4.5-5.3) mg/dL Phosphorus (2.5-4.5) mg/dL Lipase 5925 H (23-300) U/L Procalcitonin 0.62 H (0.02-0.09) ng/mL 05/06/23 05/06/23 05/06/23 Range/Units 15:19 15:49 15:49 WBC (3.8-10.6) k/uL Neutrophils # (1.3-7.7) k/uL Neutrophils # (Manual) (1.3-7.7) k/uL Lymphocytes # (1.0-4.8) k/uL Monocytes # (0-1.0) k/uL Monocytes # (Manual) (0-1.0) k/uL Metamyelocytes # (Man) (0) k/uL Myelocytes # (Manual) (0) k/uL VBG pH 6.87 L* (7.31-7.41) VBG pCO2 24 L (37-51) mmHg VBG HCO3 4 L* (24-28) mmol/L Potassium (3.5-5.1) mmol/L Chloride (98-107) mmol/L Carbon Dioxide <5 L* (22-30) mmol/L BUN 41 H (9-20) mg/dL Creatinine 1.62 H (0.66-1.25) mg/dL Glucose 639 H* (74-99) mg/dL POC Glucose (mg/dL) (70-110) mg/dL Hemoglobin A1c (<=6.0) % Osmolality (280-301) mosm/kg Plasma Lactic Acid Héctor 2.1 H* (0.7-2.0) mmol/L Ionized Calcium Bayron (4.5-5.3) mg/dL Phosphorus 6.0 H (2.5-4.5) mg/dL Lipase (23-300) U/L Procalcitonin (0.02-0.09) ng/mL 05/06/23 05/06/23 05/06/23 Range/Units 15:50 17:15 17:58 WBC (3.8-10.6) k/uL Neutrophils # (1.3-7.7) k/uL Neutrophils # (Manual) (1.3-7.7) k/uL Lymphocytes # (1.0-4.8) k/uL Monocytes # (0-1.0) k/uL Monocytes # (Manual) (0-1.0) k/uL Metamyelocytes # (Man) (0) k/uL Myelocytes # (Manual) (0) k/uL VBG pH (7.31-7.41) VBG pCO2 (37-51) mmHg VBG HCO3 (24-28) mmol/L Potassium (3.5-5.1) mmol/L Chloride (98-107) mmol/L Carbon Dioxide (22-30) mmol/L BUN (9-20) mg/dL Creatinine (0.66-1.25) mg/dL Glucose (74-99) mg/dL POC Glucose (mg/dL) >600 H 597 H >600 H (70-110) mg/dL Hemoglobin A1c (<=6.0) % Osmolality (280-301) mosm/kg Plasma Lactic Acid Héctor (0.7-2.0) mmol/L Ionized Calcium Bayron (4.5-5.3) mg/dL Phosphorus (2.5-4.5) mg/dL Lipase (23-300) U/L Procalcitonin (0.02-0.09) ng/mL 05/06/23 05/06/23 05/06/23 Range/Units 18:00 18:28 19:45 WBC (3.8-10.6) k/uL Neutrophils # (1.3-7.7) k/uL Neutrophils # (Manual) (1.3-7.7) k/uL Lymphocytes # (1.0-4.8) k/uL Monocytes # (0-1.0) k/uL Monocytes # (Manual) (0-1.0) k/uL Metamyelocytes # (Man) (0) k/uL Myelocytes # (Manual) (0) k/uL VBG pH (7.31-7.41) VBG pCO2 (37-51) mmHg VBG HCO3 (24-28) mmol/L Potassium (3.5-5.1) mmol/L Chloride 110 H (98-107) mmol/L Carbon Dioxide 6 L* (22-30) mmol/L BUN 48 H (9-20) mg/dL Creatinine 1.36 H (0.66-1.25) mg/dL Glucose 436 H (74-99) mg/dL POC Glucose (mg/dL) 568 H 537 H (70-110) mg/dL Hemoglobin A1c (<=6.0) % Osmolality (280-301) mosm/kg Plasma Lactic Acid Héctor (0.7-2.0) mmol/L Ionized Calcium Bayron (4.5-5.3) mg/dL Phosphorus 2.3 L (2.5-4.5) mg/dL Lipase (23-300) U/L Procalcitonin (0.02-0.09) ng/mL 05/06/23 05/06/23 05/06/23 Range/Units 19:57 21:02 22:03 WBC (3.8-10.6) k/uL Neutrophils # (1.3-7.7) k/uL Neutrophils # (Manual) (1.3-7.7) k/uL Lymphocytes # (1.0-4.8) k/uL Monocytes # (0-1.0) k/uL Monocytes # (Manual) (0-1.0) k/uL Metamyelocytes # (Man) (0) k/uL Myelocytes # (Manual) (0) k/uL VBG pH (7.31-7.41) VBG pCO2 (37-51) mmHg VBG HCO3 (24-28) mmol/L Potassium (3.5-5.1) mmol/L Chloride (98-107) mmol/L Carbon Dioxide (22-30) mmol/L BUN (9-20) mg/dL Creatinine (0.66-1.25) mg/dL Glucose (74-99) mg/dL POC Glucose (mg/dL) 436 H 371 H 352 H (70-110) mg/dL Hemoglobin A1c (<=6.0) % Osmolality (280-301) mosm/kg Plasma Lactic Acid Héctor (0.7-2.0) mmol/L Ionized Calcium Bayron (4.5-5.3) mg/dL Phosphorus (2.5-4.5) mg/dL Lipase (23-300) U/L Procalcitonin (0.02-0.09) ng/mL 05/06/23 05/07/23 05/07/23 Range/Units 23:07 00:04 00:25 WBC (3.8-10.6) k/uL Neutrophils # (1.3-7.7) k/uL Neutrophils # (Manual) (1.3-7.7) k/uL Lymphocytes # (1.0-4.8) k/uL Monocytes # (0-1.0) k/uL Monocytes # (Manual) (0-1.0) k/uL Metamyelocytes # (Man) (0) k/uL Myelocytes # (Manual) (0) k/uL VBG pH (7.31-7.41) VBG pCO2 (37-51) mmHg VBG HCO3 (24-28) mmol/L Potassium 3.3 L (3.5-5.1) mmol/L Chloride 114 H (98-107) mmol/L Carbon Dioxide 14 L (22-30) mmol/L BUN 46 H (9-20) mg/dL Creatinine (0.66-1.25) mg/dL Glucose 285 H (74-99) mg/dL POC Glucose (mg/dL) 315 H 267 H (70-110) mg/dL Hemoglobin A1c (<=6.0) % Osmolality (280-301) mosm/kg Plasma Lactic Acid Héctor (0.7-2.0) mmol/L Ionized Calcium Bayron (4.5-5.3) mg/dL Phosphorus 1.3 L (2.5-4.5) mg/dL Lipase (23-300) U/L Procalcitonin (0.02-0.09) ng/mL 05/07/23 05/07/23 05/07/23 Range/Units 00:25 01:01 02:03 WBC (3.8-10.6) k/uL Neutrophils # (1.3-7.7) k/uL Neutrophils # (Manual) (1.3-7.7) k/uL Lymphocytes # (1.0-4.8) k/uL Monocytes # (0-1.0) k/uL Monocytes # (Manual) (0-1.0) k/uL Metamyelocytes # (Man) (0) k/uL Myelocytes # (Manual) (0) k/uL VBG pH (7.31-7.41) VBG pCO2 (37-51) mmHg VBG HCO3 (24-28) mmol/L Potassium (3.5-5.1) mmol/L Chloride (98-107) mmol/L Carbon Dioxide (22-30) mmol/L BUN (9-20) mg/dL Creatinine (0.66-1.25) mg/dL Glucose (74-99) mg/dL POC Glucose (mg/dL) 313 H 270 H (70-110) mg/dL Hemoglobin A1c (<=6.0) % Osmolality (280-301) mosm/kg Plasma Lactic Acid Héctor (0.7-2.0) mmol/L Ionized Calcium Bayron 5.7 H (4.5-5.3) mg/dL Phosphorus (2.5-4.5) mg/dL Lipase (23-300) U/L Procalcitonin (0.02-0.09) ng/mL 05/07/23 05/07/23 05/07/23 Range/Units 02:58 03:55 05:02 WBC (3.8-10.6) k/uL Neutrophils # (1.3-7.7) k/uL Neutrophils # (Manual) (1.3-7.7) k/uL Lymphocytes # (1.0-4.8) k/uL Monocytes # (0-1.0) k/uL Monocytes # (Manual) (0-1.0) k/uL Metamyelocytes # (Man) (0) k/uL Myelocytes # (Manual) (0) k/uL VBG pH (7.31-7.41) VBG pCO2 (37-51) mmHg VBG HCO3 (24-28) mmol/L Potassium (3.5-5.1) mmol/L Chloride (98-107) mmol/L Carbon Dioxide (22-30) mmol/L BUN (9-20) mg/dL Creatinine (0.66-1.25) mg/dL Glucose (74-99) mg/dL POC Glucose (mg/dL) 317 H 282 H 250 H (70-110) mg/dL Hemoglobin A1c (<=6.0) % Osmolality (280-301) mosm/kg Plasma Lactic Acid Héctor (0.7-2.0) mmol/L Ionized Calcium Bayron (4.5-5.3) mg/dL Phosphorus (2.5-4.5) mg/dL Lipase (23-300) U/L Procalcitonin (0.02-0.09) ng/mL 05/07/23 05/07/23 05/07/23 Range/Units 05:07 05:07 05:07 WBC 25.7 H (3.8-10.6) k/uL Neutrophils # 23.1 H (1.3-7.7) k/uL Neutrophils # (Manual) (1.3-7.7) k/uL Lymphocytes # 0.9 L (1.0-4.8) k/uL Monocytes # 1.4 H (0-1.0) k/uL Monocytes # (Manual) (0-1.0) k/uL Metamyelocytes # (Man) (0) k/uL Myelocytes # (Manual) (0) k/uL VBG pH (7.31-7.41) VBG pCO2 (37-51) mmHg VBG HCO3 (24-28) mmol/L Potassium (3.5-5.1) mmol/L Chloride 116 H (98-107) mmol/L Carbon Dioxide 16 L (22-30) mmol/L BUN (9-20) mg/dL Creatinine (0.66-1.25) mg/dL Glucose (74-99) mg/dL POC Glucose (mg/dL) (70-110) mg/dL Hemoglobin A1c (<=6.0) % Osmolality (280-301) mosm/kg Plasma Lactic Acid Héctor (0.7-2.0) mmol/L Ionized Calcium Bayron 5.5 H (4.5-5.3) mg/dL Phosphorus (2.5-4.5) mg/dL Lipase 4207 H (23-300) U/L Procalcitonin (0.02-0.09) ng/mL 05/07/23 05/07/23 05/07/23 Range/Units 05:07 06:02 07:02 WBC (3.8-10.6) k/uL Neutrophils # (1.3-7.7) k/uL Neutrophils # (Manual) (1.3-7.7) k/uL Lymphocytes # (1.0-4.8) k/uL Monocytes # (0-1.0) k/uL Monocytes # (Manual) (0-1.0) k/uL Metamyelocytes # (Man) (0) k/uL Myelocytes # (Manual) (0) k/uL VBG pH (7.31-7.41) VBG pCO2 (37-51) mmHg VBG HCO3 (24-28) mmol/L Potassium (3.5-5.1) mmol/L Chloride (98-107) mmol/L Carbon Dioxide (22-30) mmol/L BUN (9-20) mg/dL Creatinine (0.66-1.25) mg/dL Glucose (74-99) mg/dL POC Glucose (mg/dL) 231 H 219 H (70-110) mg/dL Hemoglobin A1c >18.0 H (<=6.0) % Osmolality (280-301) mosm/kg Plasma Lactic Acid Héctor (0.7-2.0) mmol/L Ionized Calcium Bayron (4.5-5.3) mg/dL Phosphorus (2.5-4.5) mg/dL Lipase (23-300) U/L Procalcitonin (0.02-0.09) ng/mL 05/07/23 05/07/23 05/07/23 Range/Units 08:14 08:45 09:01 WBC (3.8-10.6) k/uL Neutrophils # (1.3-7.7) k/uL Neutrophils # (Manual) (1.3-7.7) k/uL Lymphocytes # (1.0-4.8) k/uL Monocytes # (0-1.0) k/uL Monocytes # (Manual) (0-1.0) k/uL Metamyelocytes # (Man) (0) k/uL Myelocytes # (Manual) (0) k/uL VBG pH (7.31-7.41) VBG pCO2 (37-51) mmHg VBG HCO3 (24-28) mmol/L Potassium (3.5-5.1) mmol/L Chloride 118 H (98-107) mmol/L Carbon Dioxide 14 L (22-30) mmol/L BUN 38 H (9-20) mg/dL Creatinine 0.52 L (0.66-1.25) mg/dL Glucose 198 H (74-99) mg/dL POC Glucose (mg/dL) 206 H 195 H (70-110) mg/dL Hemoglobin A1c (<=6.0) % Osmolality (280-301) mosm/kg Plasma Lactic Acid Héctor (0.7-2.0) mmol/L Ionized Calcium Bayron (4.5-5.3) mg/dL Phosphorus (2.5-4.5) mg/dL Lipase (23-300) U/L Procalcitonin (0.02-0.09) ng/mL 05/07/23 05/07/23 05/07/23 Range/Units 10:12 11:02 12:01 WBC (3.8-10.6) k/uL Neutrophils # (1.3-7.7) k/uL Neutrophils # (Manual) (1.3-7.7) k/uL Lymphocytes # (1.0-4.8) k/uL Monocytes # (0-1.0) k/uL Monocytes # (Manual) (0-1.0) k/uL Metamyelocytes # (Man) (0) k/uL Myelocytes # (Manual) (0) k/uL VBG pH (7.31-7.41) VBG pCO2 (37-51) mmHg VBG HCO3 (24-28) mmol/L Potassium (3.5-5.1) mmol/L Chloride (98-107) mmol/L Carbon Dioxide (22-30) mmol/L BUN (9-20) mg/dL Creatinine (0.66-1.25) mg/dL Glucose (74-99) mg/dL POC Glucose (mg/dL) 186 H 151 H 163 H (70-110) mg/dL Hemoglobin A1c (<=6.0) % Osmolality (280-301) mosm/kg Plasma Lactic Acid Héctor (0.7-2.0) mmol/L Ionized Calcium Bayron (4.5-5.3) mg/dL Phosphorus (2.5-4.5) mg/dL Lipase (23-300) U/L Procalcitonin (0.02-0.09) ng/mL 05/07/23 05/07/23 Range/Units 12:58 14:08 WBC (3.8-10.6) k/uL Neutrophils # (1.3-7.7) k/uL Neutrophils # (Manual) (1.3-7.7) k/uL Lymphocytes # (1.0-4.8) k/uL Monocytes # (0-1.0) k/uL Monocytes # (Manual) (0-1.0) k/uL Metamyelocytes # (Man) (0) k/uL Myelocytes # (Manual) (0) k/uL VBG pH (7.31-7.41) VBG pCO2 (37-51) mmHg VBG HCO3 (24-28) mmol/L Potassium (3.5-5.1) mmol/L Chloride (98-107) mmol/L Carbon Dioxide (22-30) mmol/L BUN (9-20) mg/dL Creatinine (0.66-1.25) mg/dL Glucose (74-99) mg/dL POC Glucose (mg/dL) 124 H 117 H (70-110) mg/dL Hemoglobin A1c (<=6.0) % Osmolality (280-301) mosm/kg Plasma Lactic Acid Héctor (0.7-2.0) mmol/L Ionized Calcium Bayron (4.5-5.3) mg/dL Phosphorus (2.5-4.5) mg/dL Lipase (23-300) U/L Procalcitonin (0.02-0.09) ng/mL Diabetes panel 05/06/23 05/06/23 05/07/23 Range/Units 15:49 19:45 00:25 Sodium 138 138 142 (137-145) mmol/L Potassium 4.9 4.3 3.3 L (3.5-5.1) mmol/L Chloride 104 110 H 114 H (98-107) mmol/L Carbon Dioxide <5 L* 6 L* 14 L (22-30) mmol/L BUN 41 H 48 H 46 H (9-20) mg/dL Creatinine 1.62 H 1.36 H 0.82 (0.66-1.25) mg/dL Glucose 639 H* 436 H 285 H (74-99) mg/dL Hemoglobin A1c (<=6.0) % Calcium 9.5 (8.4-10.2) mg/dL 05/07/23 05/07/23 05/07/23 Range/Units 05:07 05:07 08:45 Sodium 140 140 (137-145) mmol/L Potassium 3.8 4.2 (3.5-5.1) mmol/L Chloride 116 H 118 H (98-107) mmol/L Carbon Dioxide 16 L 14 L (22-30) mmol/L BUN 38 H (9-20) mg/dL Creatinine 0.52 L (0.66-1.25) mg/dL Glucose 198 H (74-99) mg/dL Hemoglobin A1c >18.0 H (<=6.0) % Calcium 8.6 (8.4-10.2) mg/dL Thyroid panel 05/07/23 Range/Units 00:25 TSH 1.100 (0.465-4.680) mIU/L Calcium panel 05/06/23 05/06/23 05/07/23 Range/Units 15:49 19:45 00:25 Calcium 9.5 (8.4-10.2) mg/dL Ionized Calcium Bayron (4.5-5.3) mg/dL Phosphorus 6.0 H 2.3 L 1.3 L (2.5-4.5) mg/dL 05/07/23 05/07/23 05/07/23 Range/Units 00:25 05:07 08:45 Calcium 8.6 (8.4-10.2) mg/dL Ionized Calcium Bayron 5.7 H 5.5 H (4.5-5.3) mg/dL Phosphorus (2.5-4.5) mg/dL Pituitary panel 05/06/23 05/06/23 05/07/23 Range/Units 15:49 19:45 00:25 Sodium 138 138 142 (137-145) mmol/L Potassium 4.9 4.3 3.3 L (3.5-5.1) mmol/L Chloride 104 110 H 114 H (98-107) mmol/L Carbon Dioxide <5 L* 6 L* 14 L (22-30) mmol/L BUN 41 H 48 H 46 H (9-20) mg/dL Creatinine 1.62 H 1.36 H 0.82 (0.66-1.25) mg/dL Glucose 639 H* 436 H 285 H (74-99) mg/dL Calcium 9.5 (8.4-10.2) mg/dL TSH 1.100 (0.465-4.680) mIU/L 05/07/23 05/07/23 Range/Units 05:07 08:45 Sodium 140 140 (137-145) mmol/L Potassium 3.8 4.2 (3.5-5.1) mmol/L Chloride 116 H 118 H (98-107) mmol/L Carbon Dioxide 16 L 14 L (22-30) mmol/L BUN 38 H (9-20) mg/dL Creatinine 0.52 L (0.66-1.25) mg/dL Glucose 198 H (74-99) mg/dL Calcium 8.6 (8.4-10.2) mg/dL TSH (0.465-4.680) mIU/L Adrenal panel 05/06/23 05/06/23 05/07/23 Range/Units 15:49 19:45 00:25 Sodium 138 138 142 (137-145) mmol/L Potassium 4.9 4.3 3.3 L (3.5-5.1) mmol/L Chloride 104 110 H 114 H (98-107) mmol/L Carbon Dioxide <5 L* 6 L* 14 L (22-30) mmol/L BUN 41 H 48 H 46 H (9-20) mg/dL Creatinine 1.62 H 1.36 H 0.82 (0.66-1.25) mg/dL Glucose 639 H* 436 H 285 H (74-99) mg/dL Calcium 9.5 (8.4-10.2) mg/dL 05/07/23 05/07/23 Range/Units 05:07 08:45 Sodium 140 140 (137-145) mmol/L Potassium 3.8 4.2 (3.5-5.1) mmol/L Chloride 116 H 118 H (98-107) mmol/L Carbon Dioxide 16 L 14 L (22-30) mmol/L BUN 38 H (9-20) mg/dL Creatinine 0.52 L (0.66-1.25) mg/dL Glucose 198 H (74-99) mg/dL Calcium 8.6 (8.4-10.2) mg/dL
[2023-05-07 15:36] LABS: African American GFR (CKD) >90 (>60 ml/min/1.73 sqM); Anion Gap 7 mmol/L; Blood Urea Nitrogen 35 mg/dL (9-20); Calcium 8.9 mg/dL (8.4-10.2); Carbon Dioxide 20 mmol/L (22-30); Chloride 116 mmol/L (98-107); Glucose 124 mg/dL (74-99); Non-African American GFR(CKD) >90 (>60 ml/min/1.73 sqM); Potassium 3.4 mmol/L (3.5-5.1); Sodium 143 mmol/L (137-145)
[2023-05-07 15:58] LABS: Glucose,Whole Blood 131 mg/dL (70-110)
--- NOTE | 2023-05-07 16:23 | P.HPIM ---
History of Present Illness H&P Date: 05/07/23 Chief Complaint: Altered mental status Patient is a 58-year-old male with a known history of diabetes type 2 currently not taking any medications after losing weight was brought to the hospital a lot her mental status. Patient has been having worsening generalized weakness and decreased responsiveness for the past 1 week. Patient was brought to the hospital by EMS. Patient is a poor historian. Recently moved to [place]. He has been having decreased oral intake. On admission patient was hypothermic. Patient was also hypoxic. Chest x-ray showed no definite acute process. Suspected COPD and basilar scarring and bibasilar atelectasis. 1 cm nodule lateral margin left lower lobe could represent a nipple shadow. Pelvic x-ray showed no acute fracture. CT head and cervical spine showed no acute intracranial process. Nonspecific white matter changes likely secondary to chronic small disease. No evidence of cervical spine fracture. Multilevel degenerative disc disease. CTA chest showed no evidence of pulmonary embolism. Peripheral groundglass pulmonary opacities consistent with atypical pulmonary infection such as combing 19. Esophageal wall thickening correlate for esophagitis. KUB x-ray showed nonspecific nonspecific abdominal. Multiple dilated bowel loops in the abdomen may be related to ileus/enteritis. Obstruction not entirely excluded. Laboratory data showed WBC 26.4 hemoglobin 13.0 and platelets 295 D-dimer 1.24 ABG showed pH 6.89 pCO2 18 and bicarb is 4. Sodium 141 potassium 2.6 chloride 120 bicarb is less than 5 BUN 27 and creatinine 0.79 Osmolality 331 and calcium 4.7 and magnesium 1.4, troponin 1 negative. Albumin 1.6 lipase 4925 , pro calcitonin 0.62. Urinalysis showed 4+ glucose and 3+ ketones. UDS negative and his son positive Influenza A, B, RSV and covid 19 PCR not detected. Review of Systems Complete review of systems could not be obtained from the patient except as per HPI ROS unobtainable: due to mental status Past Medical History Past Medical History: No Reported History, Heart Failure, Diabetes Mellitus History of Any Multi-Drug Resistant Organisms: None Reported Past Surgical History: No Surgical Hx Reported Past Anesthesia/Blood Transfusion Reactions: No Reported Reaction Past Psychological History: No Psychological Hx Reported Smoking Status: Current every day smoker - Past Family History Father Family Medical History: Cancer Mother Family Medical History: Congestive Heart Failure (CHF), Diabetes Mellitus Medications and Allergies Home Medications Medication Instructions Recorded Confirmed Type No Known Home Medications 05/06/23 05/06/23 History Allergies Allergy/AdvReac Type Severity Reaction Status Date / Time No Known Allergies Allergy Verified 05/06/23 14:08 Physical Exam Vitals: Vital Signs Temp Pulse Resp BP Pulse Ox 05/07/23 09:00 113 H 18 151/83 97 05/07/23 08:00 99.5 F 108 H 18 151/91 97 05/07/23 07:00 114 H 23 159/90 98 05/07/23 06:00 112 H 26 H 151/85 99 05/07/23 05:00 113 H 24 141/84 98 05/07/23 04:00 99.0 F 114 H 29 H 147/85 97 05/07/23 03:00 118 H 21 139/83 98 05/07/23 02:00 116 H 18 149/86 97 05/07/23 01:30 118 H 22 149/86 97 05/07/23 01:00 122 H 23 132/81 98 05/07/23 00:30 117 H 19 132/81 97 05/07/23 00:00 99.3 F 116 H 20 134/79 97 05/06/23 23:30 122 H 21 134/79 98 05/06/23 23:16 122 H 26 H 134/79 97 05/06/23 23:00 120 H 24 134/75 97 05/06/23 22:30 121 H 23 134/75 98 05/06/23 22:00 126 H 25 H 123/74 05/06/23 21:30 124 H 26 H 123/74 97 05/06/23 21:00 123 H 26 H 112/68 97 05/06/23 20:30 128 H 30 H 112/68 96 05/06/23 20:00 96.6 F L 120 H 24 115/67 96 05/06/23 19:30 112 H 18 115/67 97 05/06/23 19:00 107 H 18 116/64 97 05/06/23 18:26 95.5 F L 108 H 22 143/74 95 05/06/23 17:44 95.4 F L 108 H 26 H 143/74 05/06/23 15:00 92.3 F L 101 H 22 143/74 100 05/06/23 14:30 101 H 24 143/74 05/06/23 13:30 96 24 143/74 05/06/23 12:23 90.7 F L 93 16 117/71 88 L Intake and Output 05/06/23 05/07/23 05/07/23 22:59 06:59 14:59 Intake Total 900 2841.000 340 Output Total 350 605 150 Balance 550 2236.000 190 Intake: IV 600 1690 340 D5-0.45% NaCl with KCl 1050 300 20Meq/l 1,000 ml @ 150 mls/hr IV .Q6H40M [facility] Rx# :[id number] Potassium Chloride 10 meq 300 In Water For Injection 1 100ml.bag @ 100 mls/hr IVPB Q1HR [facility] Rx#: [id number] Sodium Chloride 0.9% 1, 600 200 000 ml @ 200 mls/hr IV . Q5H [facility] Rx#:[id number] normal saline 140 40 Intake, IV Titration 300 1151.000 Amount Calcium Gluconate in NaCl 100 2 gm In Saline 1 100ml. bag @ 100 mls/hr IVPB ONCE ONE Rx#:[id number] D5-0.45% NaCl with KCl 750 20Meq/l 1,000 ml @ 150 mls/hr IV .Q6H40M [facility] Rx# :[id number] Insulin Regular 100 unit 101.000 In Sodium Chloride 0.9% 100 ml @ 0.1 UNITS/KG/HR 6.45 mls/hr IV .[id number] [facility] Rx#:[id number] Potassium Chloride 10 meq 300 In Water For Injection 1 100ml.bag @ 100 mls/hr IVPB Q1HR [facility] Rx#: [id number] Sodium Chloride 0.9% 1, 200 000 ml @ 200 mls/hr IV . Q5H [facility] Rx#:[id number] Output: Urine 350 605 150 Other: Voiding Method Indwelling Catheter Indwelling Catheter Indwelling Catheter Weight 63.866 kg 61.961 kg PHYSICAL EXAMINATION: Patient is lying in the bed, no acute distress, awake alert but lethargic and weak. Able to follow simple commands... HEENT: Normocephalic. Neck is supple. Pupils reactive. Nostrils clear. Oral cavity is moist. Neck reveals no JVD, carotid bruits, or thyromegaly. CHEST EXAMINATION: Trachea is central. Symmetrical expansion. Lung paige clear to auscultation and percussion. Bibasilar diminished sounds. CARDIAC: Normal S1, S2 with no gallops. No murmurs ABDOMEN: Soft. Bowel sounds normal. No organomegaly. No abdominal bruits. Left gluteal pressure wound stage 2 with induration with minimal purulent discharge. Right gluteal pressure ulcer stage I Extremities: reveal no edema. No clubbing or cyanosis Neurologically awake, alert, oriented 2-3. Able to move her extremities. No gross focal deficits noted Skin: No rash or skin lesions except above.. Psychiatric: Coperative. Could not be assessed completely. Musculoskeletal: No joint swelling or deformity. Results CBC & Chem 7: 05/07/23 05:07 05/07/23 15:05 Labs: Abnormal Lab Results - Last 24 Hours (Table) 05/06/23 05/06/23 05/06/23 Range/Units 12:24 12:41 12:41 WBC 26.4 H (3.8-10.6) k/uL RBC 4.07 L (4.30-5.90) m/uL MCV 100.1 H (80.0-100.0) fL Neutrophils # (1.3-7.7) k/uL Neutrophils # (Manual) 23.70 H (1.3-7.7) k/uL Lymphocytes # (1.0-4.8) k/uL Monocytes # (0-1.0) k/uL Monocytes # (Manual) 1.32 H (0-1.0) k/uL Metamyelocytes # (Man) 0.26 H (0) k/uL Myelocytes # (Manual) 0.26 H (0) k/uL PT (9.0-12.0) sec INR (<1.2) D-Dimer (<0.60) mg/L FEU VBG pH (7.31-7.41) VBG pCO2 (37-51) mmHg VBG HCO3 (24-28) mmol/L Potassium 2.6 L* (3.5-5.1) mmol/L Chloride 120 H (98-107) mmol/L Carbon Dioxide <5 L* (22-30) mmol/L BUN 27 H (9-20) mg/dL Creatinine (0.66-1.25) mg/dL Glucose 441 H (74-99) mg/dL POC Glucose (mg/dL) >600 H (70-110) mg/dL Hemoglobin A1c (<=6.0) % Osmolality 331 H* (280-301) mosm/kg Plasma Lactic Acid Héctor (0.7-2.0) mmol/L Calcium 4.7 L* (8.4-10.2) mg/dL Ionized Calcium Bayron (4.5-5.3) mg/dL Phosphorus (2.5-4.5) mg/dL Magnesium 1.4 L (1.6-2.3) mg/dL AST 14 L (17-59) U/L Creatine Kinase 36 L (55-170) U/L Total Protein 3.7 L (6.3-8.2) g/dL Albumin 1.6 L (3.5-5.0) g/dL Lipase 5925 H (23-300) U/L Procalcitonin (0.02-0.09) ng/mL Urine Protein (Negative) Urine Glucose (UA) (Negative) Urine Ketones (Negative) Urine Blood (Negative) Urine Bacteria (None) /hpf Urine Mucus (None) /hpf 05/06/23 05/06/23 05/06/23 Range/Units 12:41 12:41 12:48 WBC (3.8-10.6) k/uL RBC (4.30-5.90) m/uL MCV (80.0-100.0) fL Neutrophils # (1.3-7.7) k/uL Neutrophils # (Manual) (1.3-7.7) k/uL Lymphocytes # (1.0-4.8) k/uL Monocytes # (0-1.0) k/uL Monocytes # (Manual) (0-1.0) k/uL Metamyelocytes # (Man) (0) k/uL Myelocytes # (Manual) (0) k/uL PT 12.2 H (9.0-12.0) sec INR 1.2 H (<1.2) D-Dimer 1.24 H (<0.60) mg/L FEU VBG pH 6.89 L* (7.31-7.41) VBG pCO2 18 L* (37-51) mmHg VBG HCO3 4 L* (24-28) mmol/L Potassium (3.5-5.1) mmol/L Chloride (98-107) mmol/L Carbon Dioxide (22-30) mmol/L BUN (9-20) mg/dL Creatinine (0.66-1.25) mg/dL Glucose (74-99) mg/dL POC Glucose (mg/dL) (70-110) mg/dL Hemoglobin A1c (<=6.0) % Osmolality (280-301) mosm/kg Plasma Lactic Acid Héctor (0.7-2.0) mmol/L Calcium (8.4-10.2) mg/dL Ionized Calcium Bayron (4.5-5.3) mg/dL Phosphorus (2.5-4.5) mg/dL Magnesium (1.6-2.3) mg/dL AST (17-59) U/L Creatine Kinase (55-170) U/L Total Protein (6.3-8.2) g/dL Albumin (3.5-5.0) g/dL Lipase (23-300) U/L Procalcitonin 0.62 H (0.02-0.09) ng/mL Urine Protein (Negative) Urine Glucose (UA) (Negative) Urine Ketones (Negative) Urine Blood (Negative) Urine Bacteria (None) /hpf Urine Mucus (None) /hpf 05/06/23 05/06/23 05/06/23 Range/Units 13:33 15:19 15:49 WBC (3.8-10.6) k/uL RBC (4.30-5.90) m/uL MCV (80.0-100.0) fL Neutrophils # (1.3-7.7) k/uL Neutrophils # (Manual) (1.3-7.7) k/uL Lymphocytes # (1.0-4.8) k/uL Monocytes # (0-1.0) k/uL Monocytes # (Manual) (0-1.0) k/uL Metamyelocytes # (Man) (0) k/uL Myelocytes # (Manual) (0) k/uL PT (9.0-12.0) sec INR (<1.2) D-Dimer (<0.60) mg/L FEU VBG pH 6.87 L* (7.31-7.41) VBG pCO2 24 L (37-51) mmHg VBG HCO3 4 L* (24-28) mmol/L Potassium (3.5-5.1) mmol/L Chloride (98-107) mmol/L Carbon Dioxide (22-30) mmol/L BUN (9-20) mg/dL Creatinine (0.66-1.25) mg/dL Glucose (74-99) mg/dL POC Glucose (mg/dL) (70-110) mg/dL Hemoglobin A1c (<=6.0) % Osmolality (280-301) mosm/kg Plasma Lactic Acid Héctor 2.1 H* (0.7-2.0) mmol/L Calcium (8.4-10.2) mg/dL Ionized Calcium Bayron (4.5-5.3) mg/dL Phosphorus (2.5-4.5) mg/dL Magnesium (1.6-2.3) mg/dL AST (17-59) U/L Creatine Kinase (55-170) U/L Total Protein (6.3-8.2) g/dL Albumin (3.5-5.0) g/dL Lipase (23-300) U/L Procalcitonin (0.02-0.09) ng/mL Urine Protein 1+ H (Negative) Urine Glucose (UA) 4+ H (Negative) Urine Ketones 3+ H (Negative) Urine Blood Small H (Negative) Urine Bacteria Rare H (None) /hpf Urine Mucus Rare H (None) /hpf 05/06/23 05/06/23 05/06/23 Range/Units 15:49 15:50 17:15 WBC (3.8-10.6) k/uL RBC (4.30-5.90) m/uL MCV (80.0-100.0) fL Neutrophils # (1.3-7.7) k/uL Neutrophils # (Manual) (1.3-7.7) k/uL Lymphocytes # (1.0-4.8) k/uL Monocytes # (0-1.0) k/uL Monocytes # (Manual) (0-1.0) k/uL Metamyelocytes # (Man) (0) k/uL Myelocytes # (Manual) (0) k/uL PT (9.0-12.0) sec INR (<1.2) D-Dimer (<0.60) mg/L FEU VBG pH (7.31-7.41) VBG pCO2 (37-51) mmHg VBG HCO3 (24-28) mmol/L Potassium (3.5-5.1) mmol/L Chloride (98-107) mmol/L Carbon Dioxide <5 L* (22-30) mmol/L BUN 41 H (9-20) mg/dL Creatinine 1.62 H (0.66-1.25) mg/dL Glucose 639 H* (74-99) mg/dL POC Glucose (mg/dL) >600 H 597 H (70-110) mg/dL Hemoglobin A1c (<=6.0) % Osmolality (280-301) mosm/kg Plasma Lactic Acid Héctor (0.7-2.0) mmol/L Calcium (8.4-10.2) mg/dL Ionized Calcium Bayron (4.5-5.3) mg/dL Phosphorus 6.0 H (2.5-4.5) mg/dL Magnesium (1.6-2.3) mg/dL AST (17-59) U/L Creatine Kinase (55-170) U/L Total Protein (6.3-8.2) g/dL Albumin (3.5-5.0) g/dL Lipase (23-300) U/L Procalcitonin (0.02-0.09) ng/mL Urine Protein (Negative) Urine Glucose (UA) (Negative) Urine Ketones (Negative) Urine Blood (Negative) Urine Bacteria (None) /hpf Urine Mucus (None) /hpf 05/06/23 05/06/23 05/06/23 Range/Units 17:58 18:00 18:28 WBC (3.8-10.6) k/uL RBC (4.30-5.90) m/uL MCV (80.0-100.0) fL Neutrophils # (1.3-7.7) k/uL Neutrophils # (Manual) (1.3-7.7) k/uL Lymphocytes # (1.0-4.8) k/uL Monocytes # (0-1.0) k/uL Monocytes # (Manual) (0-1.0) k/uL Metamyelocytes # (Man) (0) k/uL Myelocytes # (Manual) (0) k/uL PT (9.0-12.0) sec INR (<1.2) D-Dimer (<0.60) mg/L FEU VBG pH (7.31-7.41) VBG pCO2 (37-51) mmHg VBG HCO3 (24-28) mmol/L Potassium (3.5-5.1) mmol/L Chloride (98-107) mmol/L Carbon Dioxide (22-30) mmol/L BUN (9-20) mg/dL Creatinine (0.66-1.25) mg/dL Glucose (74-99) mg/dL POC Glucose (mg/dL) >600 H 568 H 537 H (70-110) mg/dL Hemoglobin A1c (<=6.0) % Osmolality (280-301) mosm/kg Plasma Lactic Acid Héctor (0.7-2.0) mmol/L Calcium (8.4-10.2) mg/dL Ionized Calcium Bayron (4.5-5.3) mg/dL Phosphorus (2.5-4.5) mg/dL Magnesium (1.6-2.3) mg/dL AST (17-59) U/L Creatine Kinase (55-170) U/L Total Protein (6.3-8.2) g/dL Albumin (3.5-5.0) g/dL Lipase (23-300) U/L Procalcitonin (0.02-0.09) ng/mL Urine Protein (Negative) Urine Glucose (UA) (Negative) Urine Ketones (Negative) Urine Blood (Negative) Urine Bacteria (None) /hpf Urine Mucus (None) /hpf 05/06/23 05/06/23 05/06/23 Range/Units 19:45 19:57 21:02 WBC (3.8-10.6) k/uL RBC (4.30-5.90) m/uL MCV (80.0-100.0) fL Neutrophils # (1.3-7.7) k/uL Neutrophils # (Manual) (1.3-7.7) k/uL Lymphocytes # (1.0-4.8) k/uL Monocytes # (0-1.0) k/uL Monocytes # (Manual) (0-1.0) k/uL Metamyelocytes # (Man) (0) k/uL Myelocytes # (Manual) (0) k/uL PT (9.0-12.0) sec INR (<1.2) D-Dimer (<0.60) mg/L FEU VBG pH (7.31-7.41) VBG pCO2 (37-51) mmHg VBG HCO3 (24-28) mmol/L Potassium (3.5-5.1) mmol/L Chloride 110 H (98-107) mmol/L Carbon Dioxide 6 L* (22-30) mmol/L BUN 48 H (9-20) mg/dL Creatinine 1.36 H (0.66-1.25) mg/dL Glucose 436 H (74-99) mg/dL POC Glucose (mg/dL) 436 H 371 H (70-110) mg/dL Hemoglobin A1c (<=6.0) % Osmolality (280-301) mosm/kg Plasma Lactic Acid Héctor (0.7-2.0) mmol/L Calcium (8.4-10.2) mg/dL Ionized Calcium Bayron (4.5-5.3) mg/dL Phosphorus 2.3 L (2.5-4.5) mg/dL Magnesium (1.6-2.3) mg/dL AST (17-59) U/L Creatine Kinase (55-170) U/L Total Protein (6.3-8.2) g/dL Albumin (3.5-5.0) g/dL Lipase (23-300) U/L Procalcitonin (0.02-0.09) ng/mL Urine Protein (Negative) Urine Glucose (UA) (Negative) Urine Ketones (Negative) Urine Blood (Negative) Urine Bacteria (None) /hpf Urine Mucus (None) /hpf 05/06/23 05/06/23 05/07/23 Range/Units 22:03 23:07 00:04 WBC (3.8-10.6) k/uL RBC (4.30-5.90) m/uL MCV (80.0-100.0) fL Neutrophils # (1.3-7.7) k/uL Neutrophils # (Manual) (1.3-7.7) k/uL Lymphocytes # (1.0-4.8) k/uL Monocytes # (0-1.0) k/uL Monocytes # (Manual) (0-1.0) k/uL Metamyelocytes # (Man) (0) k/uL Myelocytes # (Manual) (0) k/uL PT (9.0-12.0) sec INR (<1.2) D-Dimer (<0.60) mg/L FEU VBG pH (7.31-7.41) VBG pCO2 (37-51) mmHg VBG HCO3 (24-28) mmol/L Potassium (3.5-5.1) mmol/L Chloride (98-107) mmol/L Carbon Dioxide (22-30) mmol/L BUN (9-20) mg/dL Creatinine (0.66-1.25) mg/dL Glucose (74-99) mg/dL POC Glucose (mg/dL) 352 H 315 H 267 H (70-110) mg/dL Hemoglobin A1c (<=6.0) % Osmolality (280-301) mosm/kg Plasma Lactic Acid Héctor (0.7-2.0) mmol/L Calcium (8.4-10.2) mg/dL Ionized Calcium Bayron (4.5-5.3) mg/dL Phosphorus (2.5-4.5) mg/dL Magnesium (1.6-2.3) mg/dL AST (17-59) U/L Creatine Kinase (55-170) U/L Total Protein (6.3-8.2) g/dL Albumin (3.5-5.0) g/dL Lipase (23-300) U/L Procalcitonin (0.02-0.09) ng/mL Urine Protein (Negative) Urine Glucose (UA) (Negative) Urine Ketones (Negative) Urine Blood (Negative) Urine Bacteria (None) /hpf Urine Mucus (None) /hpf 05/07/23 05/07/23 05/07/23 Range/Units 00:25 00:25 01:01 WBC (3.8-10.6) k/uL RBC (4.30-5.90) m/uL MCV (80.0-100.0) fL Neutrophils # (1.3-7.7) k/uL Neutrophils # (Manual) (1.3-7.7) k/uL Lymphocytes # (1.0-4.8) k/uL Monocytes # (0-1.0) k/uL Monocytes # (Manual) (0-1.0) k/uL Metamyelocytes # (Man) (0) k/uL Myelocytes # (Manual) (0) k/uL PT (9.0-12.0) sec INR (<1.2) D-Dimer (<0.60) mg/L FEU VBG pH (7.31-7.41) VBG pCO2 (37-51) mmHg VBG HCO3 (24-28) mmol/L Potassium 3.3 L (3.5-5.1) mmol/L Chloride 114 H (98-107) mmol/L Carbon Dioxide 14 L (22-30) mmol/L BUN 46 H (9-20) mg/dL Creatinine (0.66-1.25) mg/dL Glucose 285 H (74-99) mg/dL POC Glucose (mg/dL) 313 H (70-110) mg/dL Hemoglobin A1c (<=6.0) % Osmolality (280-301) mosm/kg Plasma Lactic Acid Héctor (0.7-2.0) mmol/L Calcium (8.4-10.2) mg/dL Ionized Calcium Bayron 5.7 H (4.5-5.3) mg/dL Phosphorus 1.3 L (2.5-4.5) mg/dL Magnesium (1.6-2.3) mg/dL AST (17-59) U/L Creatine Kinase (55-170) U/L Total Protein (6.3-8.2) g/dL Albumin (3.5-5.0) g/dL Lipase (23-300) U/L Procalcitonin (0.02-0.09) ng/mL Urine Protein (Negative) Urine Glucose (UA) (Negative) Urine Ketones (Negative) Urine Blood (Negative) Urine Bacteria (None) /hpf Urine Mucus (None) /hpf 05/07/23 05/07/23 05/07/23 Range/Units 02:03 02:58 03:55 WBC (3.8-10.6) k/uL RBC (4.30-5.90) m/uL MCV (80.0-100.0) fL Neutrophils # (1.3-7.7) k/uL Neutrophils # (Manual) (1.3-7.7) k/uL Lymphocytes # (1.0-4.8) k/uL Monocytes # (0-1.0) k/uL Monocytes # (Manual) (0-1.0) k/uL Metamyelocytes # (Man) (0) k/uL Myelocytes # (Manual) (0) k/uL PT (9.0-12.0) sec INR (<1.2) D-Dimer (<0.60) mg/L FEU VBG pH (7.31-7.41) VBG pCO2 (37-51) mmHg VBG HCO3 (24-28) mmol/L Potassium (3.5-5.1) mmol/L Chloride (98-107) mmol/L Carbon Dioxide (22-30) mmol/L BUN (9-20) mg/dL Creatinine (0.66-1.25) mg/dL Glucose (74-99) mg/dL POC Glucose (mg/dL) 270 H 317 H 282 H (70-110) mg/dL Hemoglobin A1c (<=6.0) % Osmolality (280-301) mosm/kg Plasma Lactic Acid Héctor (0.7-2.0) mmol/L Calcium (8.4-10.2) mg/dL Ionized Calcium Bayron (4.5-5.3) mg/dL Phosphorus (2.5-4.5) mg/dL Magnesium (1.6-2.3) mg/dL AST (17-59) U/L Creatine Kinase (55-170) U/L Total Protein (6.3-8.2) g/dL Albumin (3.5-5.0) g/dL Lipase (23-300) U/L Procalcitonin (0.02-0.09) ng/mL Urine Protein (Negative) Urine Glucose (UA) (Negative) Urine Ketones (Negative) Urine Blood (Negative) Urine Bacteria (None) /hpf Urine Mucus (None) /hpf 05/07/23 05/07/23 05/07/23 Range/Units 05:02 05:07 05:07 WBC 25.7 H (3.8-10.6) k/uL RBC (4.30-5.90) m/uL MCV (80.0-100.0) fL Neutrophils # 23.1 H (1.3-7.7) k/uL Neutrophils # (Manual) (1.3-7.7) k/uL Lymphocytes # 0.9 L (1.0-4.8) k/uL Monocytes # 1.4 H (0-1.0) k/uL Monocytes # (Manual) (0-1.0) k/uL Metamyelocytes # (Man) (0) k/uL Myelocytes # (Manual) (0) k/uL PT (9.0-12.0) sec INR (<1.2) D-Dimer (<0.60) mg/L FEU VBG pH (7.31-7.41) VBG pCO2 (37-51) mmHg VBG HCO3 (24-28) mmol/L Potassium (3.5-5.1) mmol/L Chloride (98-107) mmol/L Carbon Dioxide (22-30) mmol/L BUN (9-20) mg/dL Creatinine (0.66-1.25) mg/dL Glucose (74-99) mg/dL POC Glucose (mg/dL) 250 H (70-110) mg/dL Hemoglobin A1c (<=6.0) % Osmolality (280-301) mosm/kg Plasma Lactic Acid Héctor (0.7-2.0) mmol/L Calcium (8.4-10.2) mg/dL Ionized Calcium Bayron 5.5 H (4.5-5.3) mg/dL Phosphorus (2.5-4.5) mg/dL Magnesium (1.6-2.3) mg/dL AST (17-59) U/L Creatine Kinase (55-170) U/L Total Protein (6.3-8.2) g/dL Albumin (3.5-5.0) g/dL Lipase (23-300) U/L Procalcitonin (0.02-0.09) ng/mL Urine Protein (Negative) Urine Glucose (UA) (Negative) Urine Ketones (Negative) Urine Blood (Negative) Urine Bacteria (None) /hpf Urine Mucus (None) /hpf 05/07/23 05/07/23 05/07/23 Range/Units 05:07 05:07 06:02 WBC (3.8-10.6) k/uL RBC (4.30-5.90) m/uL MCV (80.0-100.0) fL Neutrophils # (1.3-7.7) k/uL Neutrophils # (Manual) (1.3-7.7) k/uL Lymphocytes # (1.0-4.8) k/uL Monocytes # (0-1.0) k/uL Monocytes # (Manual) (0-1.0) k/uL Metamyelocytes # (Man) (0) k/uL Myelocytes # (Manual) (0) k/uL PT (9.0-12.0) sec INR (<1.2) D-Dimer (<0.60) mg/L FEU VBG pH (7.31-7.41) VBG pCO2 (37-51) mmHg VBG HCO3 (24-28) mmol/L Potassium (3.5-5.1) mmol/L Chloride 116 H (98-107) mmol/L Carbon Dioxide 16 L (22-30) mmol/L BUN (9-20) mg/dL Creatinine (0.66-1.25) mg/dL Glucose (74-99) mg/dL POC Glucose (mg/dL) 231 H (70-110) mg/dL Hemoglobin A1c >18.0 H (<=6.0) % Osmolality (280-301) mosm/kg Plasma Lactic Acid Héctor (0.7-2.0) mmol/L Calcium (8.4-10.2) mg/dL Ionized Calcium Bayron (4.5-5.3) mg/dL Phosphorus (2.5-4.5) mg/dL Magnesium (1.6-2.3) mg/dL AST (17-59) U/L Creatine Kinase (55-170) U/L Total Protein (6.3-8.2) g/dL Albumin (3.5-5.0) g/dL Lipase 4207 H (23-300) U/L Procalcitonin (0.02-0.09) ng/mL Urine Protein (Negative) Urine Glucose (UA) (Negative) Urine Ketones (Negative) Urine Blood (Negative) Urine Bacteria (None) /hpf Urine Mucus (None) /hpf 05/07/23 05/07/23 05/07/23 Range/Units 07:02 08:14 08:45 WBC (3.8-10.6) k/uL RBC (4.30-5.90) m/uL MCV (80.0-100.0) fL Neutrophils # (1.3-7.7) k/uL Neutrophils # (Manual) (1.3-7.7) k/uL Lymphocytes # (1.0-4.8) k/uL Monocytes # (0-1.0) k/uL Monocytes # (Manual) (0-1.0) k/uL Metamyelocytes # (Man) (0) k/uL Myelocytes # (Manual) (0) k/uL PT (9.0-12.0) sec INR (<1.2) D-Dimer (<0.60) mg/L FEU VBG pH (7.31-7.41) VBG pCO2 (37-51) mmHg VBG HCO3 (24-28) mmol/L Potassium (3.5-5.1) mmol/L Chloride 118 H (98-107) mmol/L Carbon Dioxide 14 L (22-30) mmol/L BUN 38 H (9-20) mg/dL Creatinine 0.52 L (0.66-1.25) mg/dL Glucose 198 H (74-99) mg/dL POC Glucose (mg/dL) 219 H 206 H (70-110) mg/dL Hemoglobin A1c (<=6.0) % Osmolality (280-301) mosm/kg Plasma Lactic Acid Héctor (0.7-2.0) mmol/L Calcium (8.4-10.2) mg/dL Ionized Calcium Bayron (4.5-5.3) mg/dL Phosphorus (2.5-4.5) mg/dL Magnesium (1.6-2.3) mg/dL AST (17-59) U/L Creatine Kinase (55-170) U/L Total Protein (6.3-8.2) g/dL Albumin (3.5-5.0) g/dL Lipase (23-300) U/L Procalcitonin (0.02-0.09) ng/mL Urine Protein (Negative) Urine Glucose (UA) (Negative) Urine Ketones (Negative) Urine Blood (Negative) Urine Bacteria (None) /hpf Urine Mucus (None) /hpf 05/07/23 05/07/23 Range/Units 09:01 10:12 WBC (3.8-10.6) k/uL RBC (4.30-5.90) m/uL MCV (80.0-100.0) fL Neutrophils # (1.3-7.7) k/uL Neutrophils # (Manual) (1.3-7.7) k/uL Lymphocytes # (1.0-4.8) k/uL Monocytes # (0-1.0) k/uL Monocytes # (Manual) (0-1.0) k/uL Metamyelocytes # (Man) (0) k/uL Myelocytes # (Manual) (0) k/uL PT (9.0-12.0) sec INR (<1.2) D-Dimer (<0.60) mg/L FEU VBG pH (7.31-7.41) VBG pCO2 (37-51) mmHg VBG HCO3 (24-28) mmol/L Potassium (3.5-5.1) mmol/L Chloride (98-107) mmol/L Carbon Dioxide (22-30) mmol/L BUN (9-20) mg/dL Creatinine (0.66-1.25) mg/dL Glucose (74-99) mg/dL POC Glucose (mg/dL) 195 H 186 H (70-110) mg/dL Hemoglobin A1c (<=6.0) % Osmolality (280-301) mosm/kg Plasma Lactic Acid Héctor (0.7-2.0) mmol/L Calcium (8.4-10.2) mg/dL Ionized Calcium Bayron (4.5-5.3) mg/dL Phosphorus (2.5-4.5) mg/dL Magnesium (1.6-2.3) mg/dL AST (17-59) U/L Creatine Kinase (55-170) U/L Total Protein (6.3-8.2) g/dL Albumin (3.5-5.0) g/dL Lipase (23-300) U/L Procalcitonin (0.02-0.09) ng/mL Urine Protein (Negative) Urine Glucose (UA) (Negative) Urine Ketones (Negative) Urine Blood (Negative) Urine Bacteria (None) /hpf Urine Mucus (None) /hpf Thrombosis Risk Factor Assmnt - DVT/VTE Prophylaxis DVT/VTE Prophylaxis: Pharmacologic Prophylaxis ordered - Choose All That Apply Each Factor Represents 1 point: Age 41-60 years, Sepsis (< 1month) Other Risk Factors: Yes Each Risk Factor Represents 2 Points: Patient confined to bed Thrombosis Risk Factor Assessment Total Risk Factor Score: 4 Thrombosis Risk Factor Assessment Level: Moderate Risk Assessment and Plan Assessment: Acute diabetic ketoacidosis Anion gap Metabolic acidosis Left gluteal abscess and bilateral pressure wounds. Sepsis secondary to above. Patient was hypotensive, responded with IV hydrati on. Altered mental status secondary to metabolic encephalopathy and infection. Acute pancreatitis with elevated lipase level. Likely due to acute well infection. Ileus Esophageal wall thickening possible esophagitis as per CTA chest. Scattered [place] pulmonary infiltrates highly suggestive of atypical pneumonia/previous Covid 19 infection. covid 19 PCR negative at this time. Severe hypokalemia and hypomagnesemia Moderate protein calorie malnutrition Diabetes type 2 uncontrolled with A1c 18. Patient is currently not on any medications at home since his weight loss. DVT prophylaxis Plan: Patient is being continued on insulin drip. Anion gap Closed. Continue with IV hydration Replace potassium and magnesium and monitor BMP every 4 hours. Gallbladder ultrasound showed no distinct abnormality appreciated.. Continue with PPI IV Continue IV antibiotics now, Zosyn. Gen. surgery was consulted for IND of buttock abscess and follow-up culture reports. Continue to follow closely. Discussed with his at bedside in detail. Prognosis is guarded. Critical care team and is on board. Time with Patient: Greater than 30
[2023-05-07 17:01] LABS: Glucose,Whole Blood 144 mg/dL (70-110)
[2023-05-07] MEDS: INSULIN ASPART (NovoLOG) 100 UNIT/ML VIAL SQ SCH ×2 (17:01→20:36)
[2023-05-07 17:34] LABS: Chol/HDL Ratio 3.48 Ratio; LDL Cholesterol,Calculated 58.5 mg/dL (0.0-131.0)
[2023-05-07 20:29] LABS: Glucose,Whole Blood 230 mg/dL (70-110)
[2023-05-07] MEDS: INSULIN DETEMIR (LEVEMIR) 100 UNIT/ML SYR SQ SCH (20:36)
[2023-05-08] MEDS: POTASSIUM CHLORIDE 10 MEQ in WATER FOR INJECTION 1 100ML.BAG IVPB SCH ×6 (02:15→11:04)
[2023-05-08 02:22] LABS: Glucose,Whole Blood 251 mg/dL (70-110)
[2023-05-08] MEDS ORDERED: INSULIN ASPART (NovoLOG) 100 UNIT/ML VIAL SQ SCH (02:31)
[2023-05-08] MEDS: INSULIN ASPART (NovoLOG) 100 UNIT/ML VIAL SQ SCH ×5 (02:44→20:56)
[2023-05-08 04:46] LABS: African American GFR (CKD) >90 (>60 ml/min/1.73 sqM); Anion Gap 5 mmol/L; Blood Urea Nitrogen 22 mg/dL (9-20); Calcium 8.3 mg/dL (8.4-10.2); Carbon Dioxide 21 mmol/L (22-30); Chloride 110 mmol/L (98-107); Glucose 241 mg/dL (74-99); Non-African American GFR(CKD) >90 (>60 ml/min/1.73 sqM); Potassium 3.5 mmol/L (3.5-5.1); Sodium 136 mmol/L (137-145)
[2023-05-08 05:44] LABS: Basophils % (A) 0 %; Eosinophils # (A) 0.1 k/uL (0-0.7); Eosinophils % (A) 0 %; HCT 41.7 % (39.0-53.0); HGB 14.5 gm/dL (13.0-17.5); Lymphocytes # (A) 1.2 k/uL (1.0-4.8); Lymphocytes % (A) 6 %; MCH 32.3 pg (25.0-35.0); MCHC 34.8 g/dL (31.0-37.0); MCV 92.6 fL (80.0-100.0); Mean Platelet Volume 7.5; Monocytes % (A) 5 %; Neutrophils # (A) 17.9 k/uL (1.3-7.7); Neutrophils % (A) 89 %; Platelet Count 287 k/uL (150-450); RDW 13.5 % (11.5-15.5); WBC 20.1 k/uL (3.8-10.6)
[2023-05-08] MEDS ORDERED: Potassium Replacement Protocol 1 EACH MISC MISCELLANE PRN (06:00)
[2023-05-08] MEDS: D5-0.45% NACL WITH KCL 20MEQ/L 1,000 ML IV SCH (06:04)
[2023-05-08 06:44] LABS: Glucose,Whole Blood 218 mg/dL (70-110)
[2023-05-08] MEDS: HEPARIN SODIUM,PORCINE 5,000 UNIT/ML 1 ML VIAL SQ SCH ×2 (08:25→15:58)
[2023-05-08] MEDS: PIPERACILLIN-TAZOBACTAM 3.375 GM in SODIUM CHLORIDE 0.9% 100 ML IVPB SCH ×2 (08:25→15:58)
[2023-05-08] MEDS: PANTOPRAZOLE 40 MG/10 ML VIAL IV SCH (08:26)
[2023-05-08 11:21] LABS: Glucose,Whole Blood 237 mg/dL (70-110)
--- NOTE | 2023-05-08 11:48 | P.PN ---
Subjective Progress Note Date: 05/08/23 58-year-old male patient, history of diabetes mellitus, probably type II, presented emergency department because of severe dehydration, altered mentation. Apparently the patient was having symptoms of URI and diarrhea and he came into the emergency department lethargic, weak, altered, hypotensive and he was having significantly elevated blood sugar. He was diagnosed having an acute diabetic ketoacidosis. The patient has not been taking his insulin for more than a year. He apparently has been losing weight. He has not seen a physician for several years. Prior to that, the patient was taken high dose of insulin, exact type and doses are not known. He was having polyuria and polydipsia over the past several months and he presented to us with an acute DKA. In the emergency, he was given a liter of fluids. He is normotensive. He is slightly tachycardic still. He is afebrile. Blood work shows a white cell count of 26, hemoglobin of 13, serum bicarb less than 5 and a large anion gap metabolic acidosis with a potassium level of 2.6, his initial blood sugar was above 600, his total protein is at 3.7 with a albumin of 1.6 and the patient had a lipase level of 5925. UA was positive for ketones and glucose. Covid 19 testing was negative. The rest of the viral screen was also negative. The patient had a CAT scan of the brain and C-spine that showed no acute abnormalities. CAT scan of the chest showed no evidence of any pulmonary embolism. There was peripheral groundglass pulmonary infiltrates consistent with atypical infection such as Covid 19. Accordingly, the patient was admitted to the intensive care unit. Flat film of the abdomen was also done and it showed nonspecific abdomen with multiple dilated loops of bowel in the abdomen consistent with ileus/enteritis. Obstruction was not identified. On examination, his abdomen is nondistended. The patient is following some simple commands. He'll be started on IV fluids and insulin drip. No history of any cardiac disease. No known pulmonary disease. Does not utilize any form of respiratory medications or inhalers. Not taking any diabetic medications for now. The patient is a smoker. Does not drink alcohol. He is currently retired. He lives with his in [place]. On 05/07/2023, the patient is being seen for a follow-up. Is much more awake and alert compared to yesterday and is communicating. He is been aggressively resuscitated with IV fluids. 3 L of IV fluid was given and subsequently he was placed on normal saline at the rate of 200 mL an hour and this morning the patient is on D5 half-normal saline. The patient is also on insulin drip which is running at 0.5 units an hour. Blood sugars under better control. Is still elevated. The patient's anion gap has improved and anion gap is down to 8. Nevertheless, the serum bicarb is still low at 14. The patient continues to have leukocytosis. Potassium is better place and is up to 4.2. Magnesium is being replaced, phosphorus is being replaced. Pro-calcitonin to 0.6. Lipase level is down to 4207 and ultrasound the gallbladder shows limited visualization of the common bile duct. No evidence of any hydronephrosis. Gallbladder shows no stones or wall thickening. No other abnormalities noted. On a separate note, further detailed examination of the patient revealed that the patient has deep tissue injury over the right buttocks and an underlying collection. Rule out development of an underlying abscess. Fasting lipid profile is pending. Hemoglobin A1c still pending. On 05/08/2023, the patient is on IV fluids at KVO. Insulin drip has been discontinued yesterday and the patient was started on Levemir insulin 15 units daily and addition to sliding scale coverage. The patient meanwhile has no significant anion gap and a serum bicarb is up to 21. Sodium levels at 136. Potassium levels at 3.5. Morning blood sugar was 218. The patient is tolerating diet. White cell count remains elevated at 20.1. Hemoglobin is 14.5. No abdominal pain. No nausea or emesis. Awaiting surgical consultation regarding the possibility of a deep tissue injury over the right buttocks area. The patient remains on IV Zosyn as an empiric antibiotic coverage. More alert and awake and currently is on room air oxygen. Objective - Vital Signs Vital signs: Vital Signs Temp 98.3 F 05/08/23 08:00 Pulse 86 05/08/23 08:00 Resp 17 05/08/23 08:00 BP 156/85 05/08/23 08:00 Pulse Ox 98 05/08/23 08:00 FiO2 Intake & Output 05/07/23 05/08/23 05/08/23 18:59 06:59 18:59 Intake Total 2249.578 700 270 Output Total 870 1260 175 Balance 1379.578 -560 95 Weight 61.961 kg 62 kg Intake: IV 1680 600 270 D5-0.45% NaCl with KCl 1600 600 50 20Meq/l 1,000 ml @ 50 mls /hr IV .Q20H [facility] Rx#: [id number] Piperacillin-Tazobactam 3 100 .375 gm In Sodium Chloride 0.9% 100 ml @ 25 mls/hr IVPB Q8HR [facility] Rx# :[id number] Potassium Chloride 10 meq 100 In Water For Injection 1 100ml.bag @ 100 mls/hr IVPB Q1HR [facility] Rx#: [id number] normal saline 80 20 Intake, IV Titration 569.578 100 Amount Insulin Regular 100 unit 69.578 In Sodium Chloride 0.9% 100 ml @ 0.1 UNITS/KG/HR 6.45 mls/hr IV .[id number] [facility] Rx#:[id number] Piperacillin-Tazobactam 3 200 .375 gm In Sodium Chloride 0.9% 100 ml @ 25 mls/hr IVPB Q8HR [facility] Rx# :[id number] Potassium Chloride 10 meq 300 100 In Water For Injection 1 100ml.bag @ 100 mls/hr IVPB Q1HR [facility] Rx#: [id number] Output: Urine 870 1260 175 Other: Voiding Method Indwelling Catheter Indwelling Catheter - Exam Lethargic, weak, looks debilitated and the patient is a body mass index of 20.8, having tachypnea, breathing is nonlabored. The patient is currently on room air oxygen with a pulse ox of 97%. Alert and awake and communicating Head exam was generally normal. There was no scleral icterus or corneal arcus. Mucous membranes were extremely dry. Eyes were sunken. Neck was supple and without jugular venous distension, thyromegaly, or carotid bruits. Carotids were easily palpable bilaterally. There was no adenopathy. Lungs were clear to auscultation and percussion, and with normal diaphragmatic excursion. No wheezes or rales were noted. Cardiac exam revealed the PMI to be normally situated and sized. The rhythm was regular and no extrasystoles were noted during several minutes of auscultation. The first and second heart sounds were normal and physiologic splitting of the second heart sound was noted. There were no murmurs, rubs, clicks, or gallops. Abdominal exam revealed normal bowel sounds. The abdomen was soft, non-tender, and without masses, organomegaly, or appreciable enlargement of the abdominal aorta. Examination of the extremities revealed easily palpable radial, femoral and pedal pulses. There was no cyanosis, clubbing or edema. Skin showing some mottling over the thigh and the right knee area. There is also evidence of trauma involving the right knee with some bruising. Pulses are diminished at the present. There is evidence of a deep tissue injury over the right buttocks with underlying collection which could be fluids/sepsis. Ove rlying skin is necrotic. Neurologically,Neurologically, the patient is awake and alert and the patient does not have any focal neurological deficit. Cranial nerves are essentially intact. - Labs CBC & Chem 7: 05/08/23 04:16 05/08/23 04:16 Labs: Abnormal Lab Results - Last 24 Hours (Table) 05/07/23 05/07/23 05/07/23 Range/Units 05:07 05:07 08:45 WBC (3.8-10.6) k/uL Neutrophils # (1.3-7.7) k/uL Sodium (137-145) mmol/L Potassium (3.5-5.1) mmol/L Chloride 118 H (98-107) mmol/L Carbon Dioxide 14 L (22-30) mmol/L BUN 38 H (9-20) mg/dL Creatinine 0.52 L (0.66-1.25) mg/dL Glucose 198 H (74-99) mg/dL POC Glucose (mg/dL) (70-110) mg/dL Hemoglobin A1c >18.0 H (<=6.0) % Calcium (8.4-10.2) mg/dL HDL Cholesterol 33.30 L (40.00-60.00) mg/dL 05/07/23 05/07/23 05/07/23 Range/Units 09:01 10:12 11:02 WBC (3.8-10.6) k/uL Neutrophils # (1.3-7.7) k/uL Sodium (137-145) mmol/L Potassium (3.5-5.1) mmol/L Chloride (98-107) mmol/L Carbon Dioxide (22-30) mmol/L BUN (9-20) mg/dL Creatinine (0.66-1.25) mg/dL Glucose (74-99) mg/dL POC Glucose (mg/dL) 195 H 186 H 151 H (70-110) mg/dL Hemoglobin A1c (<=6.0) % Calcium (8.4-10.2) mg/dL HDL Cholesterol (40.00-60.00) mg/dL 05/07/23 05/07/23 05/07/23 Range/Units 12:01 12:58 14:08 WBC (3.8-10.6) k/uL Neutrophils # (1.3-7.7) k/uL Sodium (137-145) mmol/L Potassium (3.5-5.1) mmol/L Chloride (98-107) mmol/L Carbon Dioxide (22-30) mmol/L BUN (9-20) mg/dL Creatinine (0.66-1.25) mg/dL Glucose (74-99) mg/dL POC Glucose (mg/dL) 163 H 124 H 117 H (70-110) mg/dL Hemoglobin A1c (<=6.0) % Calcium (8.4-10.2) mg/dL HDL Cholesterol (40.00-60.00) mg/dL 05/07/23 05/07/23 05/07/23 Range/Units 15:05 15:06 15:57 WBC (3.8-10.6) k/uL Neutrophils # (1.3-7.7) k/uL Sodium (137-145) mmol/L Potassium 3.4 L (3.5-5.1) mmol/L Chloride 116 H (98-107) mmol/L Carbon Dioxide 20 L (22-30) mmol/L BUN 35 H (9-20) mg/dL Creatinine 0.51 L (0.66-1.25) mg/dL Glucose 124 H (74-99) mg/dL POC Glucose (mg/dL) 119 H 131 H (70-110) mg/dL Hemoglobin A1c (<=6.0) % Calcium (8.4-10.2) mg/dL HDL Cholesterol (40.00-60.00) mg/dL 05/07/23 05/07/23 05/08/23 Range/Units 16:59 20:27 02:21 WBC (3.8-10.6) k/uL Neutrophils # (1.3-7.7) k/uL Sodium (137-145) mmol/L Potassium (3.5-5.1) mmol/L Chloride (98-107) mmol/L Carbon Dioxide (22-30) mmol/L BUN (9-20) mg/dL Creatinine (0.66-1.25) mg/dL Glucose (74-99) mg/dL POC Glucose (mg/dL) 144 H 230 H 251 H (70-110) mg/dL Hemoglobin A1c (<=6.0) % Calcium (8.4-10.2) mg/dL HDL Cholesterol (40.00-60.00) mg/dL 05/08/23 05/08/23 05/08/23 Range/Units 04:16 04:16 06:43 WBC 20.1 H (3.8-10.6) k/uL Neutrophils # 17.9 H (1.3-7.7) k/uL Sodium 136 L (137-145) mmol/L Potassium (3.5-5.1) mmol/L Chloride 110 H (98-107) mmol/L Carbon Dioxide 21 L (22-30) mmol/L BUN 22 H (9-20) mg/dL Creatinine 0.42 L (0.66-1.25) mg/dL Glucose 241 H (74-99) mg/dL POC Glucose (mg/dL) 218 H (70-110) mg/dL Hemoglobin A1c (<=6.0) % Calcium 8.3 L (8.4-10.2) mg/dL HDL Cholesterol (40.00-60.00) mg/dL Microbiology - Last 24 Hours (Table) 05/06/23 14:40 Wound Culture - Preliminary Buttock Gram Neg Bacilli Strep agalactiae - (group b) 05/06/23 12:50 Blood Culture - Preliminary Blood 05/06/23 13:05 Blood Culture - Preliminary Blood Assessment and Plan Plan: Acute diabetic ketoacidosis, recovered and the patient is currently on long- acting insulin with Levemir Diabetes mellitus type 2, not receiving any insulin therapy for more than a year. The hemoglobin A1c was about 18 indicating poor blood sugar control on outpatient basis Altered mentation secondary to above, recovered Hypotension with severe dehydration secondary to above, recovered Severe anion gap metabolic acidosis, recovered Acute hypokalemia, treated Acute hypomagnesemia, treated Acute hypomagnesemia Acute leukocytosis, likely reactive deep tissue injury to his right buttocks, will need a surgical evaluation, rule out underlying abscess. Acute pancreatitis, could be related to an underlying viral infection as the patient was having symptoms of URI.the lipase level is improving and the ultrasound the gallbladder showed no acute abnormalities. Scattered peripheral groundglass pulmonary infiltrates, highly suggestive of an atypical pneumonia/previous Covid 19 infection. The patient's Covid 19 testing during this current admission was negative and the rest of the viral screen was also negative Hypoproteinemia and hyperlipidemia, could be due to dietary Plan Keep the patient on Levemir insulin for now and the sinus care coverage Monitor lipase, improving Continue IV Zosyn and consult general surgery regarding the deep tissue injury to his right buttocks, rule out underlying abscess. IV Protonix Heparin subcu for DVT prophylaxis We'll continue to follow and make further recommendations based on his progress. She'll be able to transfer out of the intensive care unit at the later stage
[2023-05-08] MEDS: CALCIUM CARBONATE 500 MG CHEWABLE PO PRN ×2 (12:13→17:44)
--- NOTE | 2023-05-08 16:26 | P.PN ---
Subjective Progress Note Date: 05/08/23 CHIEF COMPLAINT: DKA HISTORY OF PRESENT ILLNESS: Patient: The ICU. He has been downgraded to [facility]. DKA has improved. Surgical service following in regards to left gluteal abscess. Afebrile. WBC 20.1 glucose 237 PHYSICAL EXAM: VITAL SIGNS: Reviewed. GENERAL: Well-developed in no acute distress. ABDOMEN: Soft. Nondistended. Nontender. NEUROLOGIC: Alert and oriented. Cranial nerves II through XII grossly intact. Skin: Left gluteal abscess. Areas indurated fluctuant tender with palpation. Near the anus on the left gluteal area there is black areas of skin and 3 areas. The sacral area is also bruised red and has a small area that is black and. On the blackened areas when pushed purulent drainage is able to be expressed. Patient does have a small area of skin breakdown on the right lateral gluteal. ASSESSMENT: 1. Left gluteal abscess/wound 2. DKA PLAN: -Patient scheduled for debridement of left gluteal abscess on 05/11/[address] agee -Continue local wound care -Continue offloading -Continue antibiotics -Continue glucose management Physician Fur Blower note has been reviewed by physician. Signing provider agrees with the documented findings, assessment, and plan of care. Objective - Vital Signs Vital signs: Vital Signs Temp 98.3 F 05/08/23 08:00 Pulse 89 05/08/23 09:00 Resp 21 05/08/23 09:00 BP 151/90 05/08/23 09:00 Pulse Ox 97 05/08/23 09:00 FiO2 Intake & Output 05/07/23 05/08/23 05/08/23 18:59 06:59 18:59 Intake Total 2249.578 700 270 Output Total 870 1260 235 Balance 1379.578 -560 35 Weight 61.961 kg 62 kg Intake: IV 1680 600 270 D5-0.45% NaCl with KCl 1600 600 50 20Meq/l 1,000 ml @ 50 mls /hr IV .Q20H [facility] Rx#: [id number] Piperacillin-Tazobactam 3 100 .375 gm In Sodium Chloride 0.9% 100 ml @ 25 mls/hr IVPB Q8HR [facility] Rx# :[id number] Potassium Chloride 10 meq 100 In Water For Injection 1 100ml.bag @ 100 mls/hr IVPB Q1HR [facility] Rx#: [id number] normal saline 80 20 Intake, IV Titration 569.578 100 Amount Insulin Regular 100 unit 69.578 In Sodium Chloride 0.9% 100 ml @ 0.1 UNITS/KG/HR 6.45 mls/hr IV .[id number] [facility] Rx#:[id number] Piperacillin-Tazobactam 3 200 .375 gm In Sodium Chloride 0.9% 100 ml @ 25 mls/hr IVPB Q8HR [facility] Rx# :[id number] Potassium Chloride 10 meq 300 100 In Water For Injection 1 100ml.bag @ 100 mls/hr IVPB Q1HR [facility] Rx#: [id number] Output: Urine 870 1260 235 Other: Voiding Method Indwelling Catheter Indwelling Catheter Indwelling Catheter - Labs CBC & Chem 7: 05/08/23 04:16 05/08/23 04:16 Labs: Abnormal Lab Results - Last 24 Hours (Table) 05/07/23 05/07/23 05/07/23 Range/Units 05:07 12:58 14:08 WBC (3.8-10.6) k/uL Neutrophils # (1.3-7.7) k/uL Sodium (137-145) mmol/L Potassium (3.5-5.1) mmol/L Chloride (98-107) mmol/L Carbon Dioxide (22-30) mmol/L BUN (9-20) mg/dL Creatinine (0.66-1.25) mg/dL Glucose (74-99) mg/dL POC Glucose (mg/dL) 124 H 117 H (70-110) mg/dL Calcium (8.4-10.2) mg/dL HDL Cholesterol 33.30 L (40.00-60.00) mg/dL 05/07/23 05/07/23 05/07/23 Range/Units 15:05 15:06 15:57 WBC (3.8-10.6) k/uL Neutrophils # (1.3-7.7) k/uL Sodium (137-145) mmol/L Potassium 3.4 L (3.5-5.1) mmol/L Chloride 116 H (98-107) mmol/L Carbon Dioxide 20 L (22-30) mmol/L BUN 35 H (9-20) mg/dL Creatinine 0.51 L (0.66-1.25) mg/dL Glucose 124 H (74-99) mg/dL POC Glucose (mg/dL) 119 H 131 H (70-110) mg/dL Calcium (8.4-10.2) mg/dL HDL Cholesterol (40.00-60.00) mg/dL 05/07/23 05/07/23 05/08/23 Range/Units 16:59 20:27 02:21 WBC (3.8-10.6) k/uL Neutrophils # (1.3-7.7) k/uL Sodium (137-145) mmol/L Potassium (3.5-5.1) mmol/L Chloride (98-107) mmol/L Carbon Dioxide (22-30) mmol/L BUN (9-20) mg/dL Creatinine (0.66-1.25) mg/dL Glucose (74-99) mg/dL POC Glucose (mg/dL) 144 H 230 H 251 H (70-110) mg/dL Calcium (8.4-10.2) mg/dL HDL Cholesterol (40.00-60.00) mg/dL 05/08/23 05/08/23 05/08/23 Range/Units 04:16 04:16 06:43 WBC 20.1 H (3.8-10.6) k/uL Neutrophils # 17.9 H (1.3-7.7) k/uL Sodium 136 L (137-145) mmol/L Potassium (3.5-5.1) mmol/L Chloride 110 H (98-107) mmol/L Carbon Dioxide 21 L (22-30) mmol/L BUN 22 H (9-20) mg/dL Creatinine 0.42 L (0.66-1.25) mg/dL Glucose 241 H (74-99) mg/dL POC Glucose (mg/dL) 218 H (70-110) mg/dL Calcium 8.3 L (8.4-10.2) mg/dL HDL Cholesterol (40.00-60.00) mg/dL 05/08/23 Range/Units 11:20 WBC (3.8-10.6) k/uL Neutrophils # (1.3-7.7) k/uL Sodium (137-145) mmol/L Potassium (3.5-5.1) mmol/L Chloride (98-107) mmol/L Carbon Dioxide (22-30) mmol/L BUN (9-20) mg/dL Creatinine (0.66-1.25) mg/dL Glucose (74-99) mg/dL POC Glucose (mg/dL) 237 H (70-110) mg/dL Calcium (8.4-10.2) mg/dL HDL Cholesterol (40.00-60.00) mg/dL Microbiology - Last 24 Hours (Table) 05/06/23 14:40 Wound Culture - Preliminary Buttock Gram Neg Bacilli Strep agalactiae - (group b) 05/06/23 12:50 Blood Culture - Preliminary Blood 05/06/23 13:05 Blood Culture - Preliminary Blood
[2023-05-08 16:32] LABS: Glucose,Whole Blood 232 mg/dL (70-110)
[2023-05-08 20:47] LABS: Glucose,Whole Blood 265 mg/dL (70-110)
[2023-05-08] MEDS: GABAPENTIN 300 MG CAP PO SCH (20:55)
[2023-05-08] MEDS: INSULIN DETEMIR (LEVEMIR) 100 UNIT/ML SYR SQ SCH (20:56)
--- NOTE | 2023-05-08 21:51 | P.PN ---
Subjective Progress Note Date: 05/08/23 Patient is a 58-year-old male with a known history of diabetes type 2 currently not taking any medications after losing weight was brought to the hospital a lot her mental status. Patient has been having worsening generalized weakness and decreased responsiveness for the past 1 week. Patient was brought to the hospital by EMS. Patient is a poor historian. Recently moved to [place]. He has been having decreased oral intake. On admission patient was hypothermic. Patient was also hypoxic. Chest x-ray showed no definite acute process. Suspected COPD and basilar scarring and bibasilar atelectasis. 1 cm nodule lateral margin left lower lobe could represent a nipple shadow. Pelvic x-ray showed no acute fracture. CT head and cervical spine showed no acute intracranial process. Nonspecific white matter changes likely secondary to chronic small disease. No evidence of cervical spine fracture. Multilevel degenerative disc disease. CTA chest showed no evidence of pulmonary embolism. Peripheral groundglass pulmonary opacities consistent with atypical pulmonary infection such as combing 19. Esophageal wall thickening correlate for esophagitis. KUB x-ray showed nonspecific nonspecific abdominal. Multiple dilated bowel loops in the abdomen may be related to ileus/enteritis. Obstruction not entirely excluded. Laboratory data showed WBC 26.4 hemoglobin 13.0 and platelets 295 D-dimer 1.24 ABG showed pH 6.89 pCO2 18 and bicarb is 4. Sodium 141 potassium 2.6 chloride 120 bicarb is less than 5 BUN 27 and creatinine 0.79 Osmolality 331 and calcium 4.7 and magnesium 1.4, troponin 1 negative. Albumin 1.6 lipase 4925 , pro calcitonin 0.62. Urinalysis showed 4+ glucose and 3+ ketones. UDS negative and his son positive Influenza A, B, RSV and covid 19 PCR not detected. 05/08/2023 Patient is currently in the MICU. Awake alert and seems to be more oriented today. No complaints of chest pain or shortness of breath. Overall patient is a poor historian otherwise. No nausea vomiting or diarrhea. Tolerating oral diet. Patient is on room air. Insulin drip has been discontinued and anion gap is closed. Patient was started on subcu insulin. Laboratory data showed WBC 20.1, hemoglobin 14.5 and platelets 287 Sodium 136 potassium 3.5 chloride 110 bicarb is 21 anion gap 5 BUN 20 creatinine 0.42 and blood sugar is 241 this morning.. Patient was seen by general surgery due to gluteal abscess and was able to express purulent discharge when present at bedside. Plan for incision and d rainage on Thursday. Patient is being current Zosyn at this time. Current medications reviewed. Objective - Vital Signs Vital signs: Vital Signs Temp 98.2 F 05/08/23 20:00 Pulse 83 05/08/23 20:00 Resp 16 05/08/23 20:00 BP 138/84 05/08/23 20:00 Pulse Ox 97 05/08/23 20:00 FiO2 Intake & Output 05/08/23 05/08/23 05/09/23 06:59 18:59 06:59 Intake Total 700 470 Output Total 1260 910 Balance -560 -440 Weight 62 kg 62 kg Intake: IV 600 470 D5-0.45% NaCl with KCl 600 50 20Meq/l 1,000 ml @ 50 mls /hr IV .Q20H [facility] Rx#: [id number] Piperacillin-Tazobactam 3 200 .375 gm In Sodium Chloride 0.9% 100 ml @ 25 mls/hr IVPB Q8HR [facility] Rx# :[id number] Potassium Chloride 10 meq 100 In Water For Injection 1 100ml.bag @ 100 mls/hr IVPB Q1HR [facility] Rx#: [id number] normal saline 120 Intake, IV Titration 100 Amount Potassium Chloride 10 meq 100 In Water For Injection 1 100ml.bag @ 100 mls/hr IVPB Q1HR [facility] Rx#: [id number] Output: Urine 1260 910 Other: Voiding Method Indwelling Catheter Indwelling Catheter # Bowel Movements 1 - Exam PHYSICAL EXAMINATION: Patient is lying in the bed, no acute distress, awake alert and oriented... HEENT: Normocephalic. Neck is supple. Pupils reactive. Nostrils clear. Oral cavity is moist. Neck reveals no JVD, carotid bruits, or thyromegaly. CHEST EXAMINATION: Trachea is central. Symmetrical expansion. Lung paige clear to auscultation and percussion. Bibasilar diminished sounds. CARDIAC: Normal S1, S2 with no gallops. No murmurs ABDOMEN: Soft. Bowel sounds normal. No organomegaly. No abdominal bruits. Left gluteal pressure wound stage 2 with induration with minimal purulent discharge. Right gluteal pressure ulcer stage I Extremities: reveal no edema. No clubbing or cyanosis Neurologically awake, alert, oriented 2-3. Able to move all extremities. No gross focal deficits noted Skin: No rash or skin lesions except above.. Psychiatric: Coperative. non suicidal. Musculoskeletal: No joint swelling or deformity. - Labs CBC & Chem 7: 05/08/23 04:16 05/08/23 04:16 Labs: Abnormal Lab Results - Last 24 Hours (Table) 05/08/23 05/08/23 05/08/23 Range/Units 02:21 04:16 04:16 WBC 20.1 H (3.8-10.6) k/uL Neutrophils # 17.9 H (1.3-7.7) k/uL Sodium 136 L (137-145) mmol/L Chloride 110 H (98-107) mmol/L Carbon Dioxide 21 L (22-30) mmol/L BUN 22 H (9-20) mg/dL Creatinine 0.42 L (0.66-1.25) mg/dL Glucose 241 H (74-99) mg/dL POC Glucose (mg/dL) 251 H (70-110) mg/dL Calcium 8.3 L (8.4-10.2) mg/dL 05/08/23 05/08/23 05/08/23 Range/Units 06:43 11:20 16:31 WBC (3.8-10.6) k/uL Neutrophils # (1.3-7.7) k/uL Sodium (137-145) mmol/L Chloride (98-107) mmol/L Carbon Dioxide (22-30) mmol/L BUN (9-20) mg/dL Creatinine (0.66-1.25) mg/dL Glucose (74-99) mg/dL POC Glucose (mg/dL) 218 H 237 H 232 H (70-110) mg/dL Calcium (8.4-10.2) mg/dL 05/08/23 Range/Units 20:46 WBC (3.8-10.6) k/uL Neutrophils # (1.3-7.7) k/uL Sodium (137-145) mmol/L Chloride (98-107) mmol/L Carbon Dioxide (22-30) mmol/L BUN (9-20) mg/dL Creatinine (0.66-1.25) mg/dL Glucose (74-99) mg/dL POC Glucose (mg/dL) 265 H (70-110) mg/dL Calcium (8.4-10.2) mg/dL Microbiology - Last 24 Hours (Table) 05/06/23 12:50 Blood Culture - Preliminary Blood 05/06/23 13:05 Blood Culture - Preliminary Blood 05/06/23 14:40 Gram Stain - Final Buttock Wound Culture - Final Escherichia coli Strep agalactiae - (group b) Assessment and Plan Assessment: Acute diabetic ketoacidosis Anion gap Metabolic acidosis Left gluteal abscess and bilateral pressure wounds. Sepsis secondary to above. Patient was hypotensive, responded with IV hydration. Altered mental status secondary to metabolic encephalopathy and infection. Acute pancreatitis with elevated lipase level. Likely due to acute well infection. Ileus Esophageal wall thickening possible esophagitis as per CTA chest. Scattered Groundglass pulmonary infiltrates highly suggestive of atypical pneumonia/previous Covid 19 infection. covid 19 PCR negative at this time. Severe hypokalemia and hypomagnesemia Moderate protein calorie malnutrition Diabetes type 2 uncontrolled with A1c 18. Patient is currently not on any medic ations at home since his weight loss. DVT prophylaxis Plan: Patient is currently in the MICU. Insulin drip has been discontinued. . Anion gap Closed. Continue with IV hydration Patient was started on subcu insulin. Currently on Lantus 15 units at bedtime along with sliding scale. Preprandial insulin will be added today. Replace potassium and magnesium and monitor BMP every 4 hours. Gallbladder ultrasound showed no distinct abnormality appreciated.. Continue with PPI IV Continue IV antibiotics now, Zosyn. General surgery is planning for I&D on Thursday. Continue to follow closely. Discussed with his at bedside in detail. Prognosis is guarded. Critical care team and is on board. Time with Patient: Greater than 30
[2023-05-09] MEDS: HEPARIN SODIUM,PORCINE 5,000 UNIT/ML 1 ML VIAL SQ SCH ×4 (00:45→23:14)
[2023-05-09] MEDS: PIPERACILLIN-TAZOBACTAM 3.375 GM in SODIUM CHLORIDE 0.9% 100 ML IVPB SCH ×4 (00:45→23:14)
[2023-05-09 01:57] LABS: Glucose,Whole Blood 155 mg/dL (70-110)
[2023-05-09] MEDS: INSULIN ASPART (NovoLOG) 100 UNIT/ML VIAL SQ SCH ×8 (02:10→20:53)
[2023-05-09 04:42] LABS: African American GFR (CKD) >90 (>60 ml/min/1.73 sqM); Amylase 85 U/L (30-110); Anion Gap 2 mmol/L; Blood Urea Nitrogen 19 mg/dL (9-20); Calcium 8.4 mg/dL (8.4-10.2); Carbon Dioxide 30 mmol/L (22-30); Chloride 103 mmol/L (98-107); Glucose 99 mg/dL (74-99); Lipase 543 U/L (23-300); Non-African American GFR(CKD) >90 (>60 ml/min/1.73 sqM); Potassium 2.8 mmol/L (3.5-5.1); Sodium 135 mmol/L (137-145)
[2023-05-09 06:51] LABS: Glucose,Whole Blood 101 mg/dL (70-110)
[2023-05-09] MEDS ORDERED: HYDROmorphone 0.5 MG/0.5 ML SYRINGE IVP PRN (07:00)
[2023-05-09] MEDS: PANTOPRAZOLE 40 MG/10 ML VIAL IV SCH (09:00)
[2023-05-09] MEDS: CALCIUM CARBONATE 500 MG CHEWABLE PO PRN ×3 (09:00→23:18)
[2023-05-09] MEDS: GABAPENTIN 300 MG CAP PO SCH ×2 (09:00→20:53)
[2023-05-09] MEDS: POTASSIUM CHLORIDE ER 20 MEQ TAB.ER PO SCH ×3 (09:04→16:23)
[2023-05-09] MEDS: LACTATED RINGERS 1,000 ML IV SCH ×2 (09:04→20:54)
--- NOTE | 2023-05-09 11:22 | P.PN ---
Subjective Progress Note Date: 05/09/23 58-year-old male patient, history of diabetes mellitus, probably type II, presented emergency department because of severe dehydration, altered mentation. Apparently the patient was having symptoms of URI and diarrhea and he came into the emergency department lethargic, weak, altered, hypotensive and he was having significantly elevated blood sugar. He was diagnosed having an acute diabetic ketoacidosis. The patient has not been taking his insulin for more than a year. He apparently has been losing weight. He has not seen a physician for several years. Prior to that, the patient was taken high dose of insulin, exact type and doses are not known. He was having polyuria and polydipsia over the past several months and he presented to us with an acute DKA. In the emergency, he was given a liter of fluids. He is normotensive. He is slightly tachycardic still. He is afebrile. Blood work shows a white cell count of 26, hemoglobin of 13, serum bicarb less than 5 and a large anion gap metabolic acidosis with a potassium level of 2.6, his initial blood sugar was above 600, his total protein is at 3.7 with a albumin of 1.6 and the patient had a lipase level of 5925. UA was positive for ketones and glucose. Covid 19 testing was negative. The rest of the viral screen was also negative. The patient had a CAT scan of the brain and C-spine that showed no acute abnormalities. CAT scan of the chest showed no evidence of any pulmonary embolism. There was peripheral groundglass pulmonary infiltrates consistent with atypical infection such as Covid 19. Accordingly, the patient was admitted to the intensive care unit. Flat film of the abdomen was also done and it showed nonspecific abdomen with multiple dilated loops of bowel in the abdomen consistent with ileus/enteritis. Obstruction was not identified. On examination, his abdomen is nondistended. The patient is following some simple commands. He'll be started on IV fluids and insulin drip. No history of any cardiac disease. No known pulmonary disease. Does not utilize any form of respiratory medications or inhalers. Not taking any diabetic medications for now. The patient is a smoker. Does not drink alcohol. He is currently retired. He lives with his in [place]. On 05/07/2023, the patient is being seen for a follow-up. Is much more awake and alert compared to yesterday and is communicating. He is been aggressively resuscitated with IV fluids. 3 L of IV fluid was given and subsequently he was placed on normal saline at the rate of 200 mL an hour and this morning the patient is on D5 half-normal saline. The patient is also on insulin drip which is running at 0.5 units an hour. Blood sugars under better control. Is still elevated. The patient's anion gap has improved and anion gap is down to 8. Nevertheless, the serum bicarb is still low at 14. The patient continues to have leukocytosis. Potassium is better place and is up to 4.2. Magnesium is being replaced, phosphorus is being replaced. Pro-calcitonin to 0.6. Lipase level is down to 4207 and ultrasound the gallbladder shows limited visualization of the common bile duct. No evidence of any hydronephrosis. Gallbladder shows no stones or wall thickening. No other abnormalities noted. On a separate note, further detailed examination of the patient revealed that the patient has deep tissue injury over the right buttocks and an underlying collection. Rule out development of an underlying abscess. Fasting lipid profile is pending. Hemoglobin A1c still pending. On 05/08/2023, the patient is on IV fluids at KVO. Insulin drip has been discontinued yesterday and the patient was started on Levemir insulin 15 units daily and addition to sliding scale coverage. The patient meanwhile has no significant anion gap and a serum bicarb is up to 21. Sodium levels at 136. Potassium levels at 3.5. Morning blood sugar was 218. The patient is tolerating diet. White cell count remains elevated at 20.1. Hemoglobin is 14.5. No abdominal pain. No nausea or emesis. Awaiting surgical consultation regarding the possibility of a deep tissue injury over the right buttocks area. The patient remains on IV Zosyn as an empiric antibiotic coverage. More alert and awake and currently is on room air oxygen. On 05/09/2023, the patient is doing well. The patient on Levemir insulin 15 units and he is also on NovoLog 4 units with meals plus a sliding scale coverage. Blood sugars under adequate control. BUN is at 19 with a creatinine of 0.3. Sodium level is at 135. Anion gap is down to 2. Serum bicarbs of 30. Potassium level needs to be replaced at 2.8. Lipase has dropped down to 543. No nausea or vomiting or abdominal pain is tolerating diet. Awaiting surgical debridement of the sacral wounds. He is afebrile for now. Mental status is back to normal. He is on room air oxygen. Objective - Vital Signs Vital signs: Vital Signs Temp 98.1 F 05/09/23 02:00 Pulse 82 05/09/23 02:00 Resp 14 05/09/23 02:00 BP 119/74 05/09/23 02:00 Pulse Ox 97 05/09/23 02:00 FiO2 Intake & Output 05/08/23 05/09/23 05/09/23 18:59 06:59 18:59 Intake Total 470 340 Output Total 910 700 Balance -440 -360 Weight 62 kg 62.8 kg Intake: IV 470 340 D5-0.45% NaCl with KCl 50 20Meq/l 1,000 ml @ 50 mls /hr IV .Q20H [facility] Rx#: [id number] Piperacillin-Tazobactam 3 200 100 .375 gm In Sodium Chloride 0.9% 100 ml @ 25 mls/hr IVPB Q8HR [facility] Rx# :[id number] Potassium Chloride 10 meq 100 In Water For Injection 1 100ml.bag @ 100 mls/hr IVPB Q1HR [facility] Rx#: [id number] normal saline 120 240 Output: Urine 910 700 Other: Voiding Method Indwelling Catheter Indwelling Catheter # Bowel Movements 1 - Exam Lethargic, weak, looks debilitated and the patient is a body mass index of 20.8, having tachypnea, breathing is nonlabored. The patient is currently on room air oxygen with a pulse ox of 97%. Alert and awake and communicating Head exam was generally normal. There was no scleral icterus or corneal arcus. Mucous membranes were extremely dry. Eyes were sunken. Neck was supple and without jugular venous distension, thyromegaly, or carotid bruits. Carotids were easily palpable bilaterally. There was no adenopathy. Lungs were clear to auscultation and percussion, and with normal diaphragmatic excursion. No wheezes or rales were noted. Cardiac exam revealed the PMI to be normally situated and sized. The rhythm was regular and no extrasystoles were noted during several minutes of auscultation. The first and second heart sounds were normal and physiologic splitting of the second heart sound was noted. There were no murmurs, rubs, clicks, or gallops. Abdominal exam revealed normal bowel sounds. The abdomen was soft, non-tender, and without masses, organomegaly, or appreciable enlargement of the abdominal aorta. Examination of the extremities revealed easily palpable radial, femoral and pedal pulses. There was no cyanosis, clubbing or edema. Skin showing some mottling over the thigh and the right knee area. There is also evidence of trauma involving the right knee with some bruising. Pulses are diminished at the present. There is evidence of a deep tissue injury over the right buttocks with underlying collection which could be fluids/sepsis. Overlying skin is necrotic. Neurologically,Neurologically, the patient is awake and alert and the patient does not have any focal neurological deficit. Cranial nerves are essentially intact. - Labs CBC & Chem 7: 05/08/23 04:16 05/09/23 03:42 Labs: Abnormal Lab Results - Last 24 Hours (Table) 05/08/23 05/08/23 05/08/23 Range/Units 11:20 16:31 20:46 Sodium (137-145) mmol/L Potassium (3.5-5.1) mmol/L Creatinine (0.66-1.25) mg/dL POC Glucose (mg/dL) 237 H 232 H 265 H (70-110) mg/dL Lipase (23-300) U/L 05/09/23 05/09/23 Range/Units 01:56 03:42 Sodium 135 L (137-145) mmol/L Potassium 2.8 L (3.5-5.1) mmol/L Creatinine 0.33 L (0.66-1.25) mg/dL POC Glucose (mg/dL) 155 H (70-110) mg/dL Lipase 543 H (23-300) U/L Microbiology - Last 24 Hours (Table) 05/06/23 12:50 Blood Culture - Preliminary Blood 05/06/23 13:05 Blood Culture - Preliminary Blood 05/06/23 14:40 Gram Stain - Final Buttock Wound Culture - Final Escherichia coli Strep agalactiae - (group b) Assessment and Plan Plan: Acute diabetic ketoacidosis, recovered and the patient is currently on long- acting insulin with Levemir, 15 units along with NovoLog 4 units with meals Diabetes mellitus type 2, not receiving any insulin therapy for more than a year. The hemoglobin A1c was about 18 indicating poor blood sugar control on outpatient basis Altered mentation secondary to above, recovered Hypotension with severe dehydration secondary to above, recovered Severe anion gap metabolic acidosis, recovered Acute hypokalemia, treated Acute hypomagnesemia, treated Acute hypomagnesemia Acute leukocytosis, likely reactive deep tissue injury to his right buttocks, will need a surgical evaluation, rule out underlying abscess. Acute pancreatitis, could be related to an underlying viral infection as the patient was having symptoms of URI.the lipase level is improving and the ultrasound the gallbladder showed no acute abnormalities. Scattered peripheral groundglass pulmonary infiltrates, highly suggestive of an atypical pneumonia/previous Covid 19 infection. The patient's Covid 19 testing during this current admission was negative and the rest of the viral screen was also negative Hypoproteinemia and hyperlipidemia, could be due to dietary Plan Keep the patient on Levemir insulin for now and the sinus care coverage, continue same insulin doses Monitor lipase, improving Continue IV Zosyn and consult general surgery regarding the deep tissue injury to his right buttocks, rule out underlying abscess. IV Protonix Heparin subcu for DVT prophylaxis We'll continue to follow and make further recommendations based on his progress. She'll be able to transfer out of the intensive care unit at the later stage
[2023-05-09 11:30] LABS: Glucose,Whole Blood 273 mg/dL (70-110)
--- NOTE | 2023-05-09 11:51 | P.PN ---
Progress Note - Text Progress Note Date: 05/09/23 Patient remains stable. He will have his gluteal wound debrided on Thursday.
[2023-05-09 16:14] LABS: Glucose,Whole Blood 242 mg/dL (70-110)
[2023-05-09 20:29] LABS: Glucose,Whole Blood 202 mg/dL (70-110)
[2023-05-09] MEDS: INSULIN DETEMIR (LEVEMIR) 100 UNIT/ML SYR SQ SCH (20:53)
[2023-05-10 03:05] LABS: Glucose,Whole Blood 78 mg/dL (70-110)
[2023-05-10] MEDS: INSULIN ASPART (NovoLOG) 100 UNIT/ML VIAL SQ SCH ×8 (03:05→20:53)
[2023-05-10 06:20] LABS: Glucose,Whole Blood 79 mg/dL (70-110)
[2023-05-10] MEDS: PIPERACILLIN-TAZOBACTAM 3.375 GM in SODIUM CHLORIDE 0.9% 100 ML IVPB SCH ×3 (08:13→23:58)
[2023-05-10] MEDS: PANTOPRAZOLE 40 MG/10 ML VIAL IV SCH (08:14)
[2023-05-10] MEDS: GABAPENTIN 300 MG CAP PO SCH ×2 (08:14→20:52)
[2023-05-10] MEDS: HEPARIN SODIUM,PORCINE 5,000 UNIT/ML 1 ML VIAL SQ SCH ×3 (08:14→23:58)
--- NOTE | 2023-05-10 09:29 | P.PN ---
Progress Note - Text Progress Note Date: 05/10/23 Patient remains stable. Patient has no complaints. Patient scheduled for debridement of left gluteal area tomorrow.
[2023-05-10 10:26] LABS: Basophils # (A) 0.05 X 10*3/uL (0.00-0.10); Basophils % (A) 0.4 %; Eosinophils # (A) 0.03 X 10*3/uL (0.04-0.35); Eosinophils % (A) 0.2 %; HCT 38.4 % (39.6-50.0); HGB 13.4 d/dL (13.0-17.0); Lymphocytes # (A) 1.87 X 10*3/uL (0.90-5.00); Lymphocytes % (A) 14.8 %; MCH 31.5 pg (27.0-32.0); MCHC 34.9 d/dL (32.0-37.0); MCV 90.1 FL (80.0-97.0); Mean Platelet Volume 9.6 FL (9.5-12.2); Monocytes # (A) 0.69 X 10*3/uL (0.20-1.00); Monocytes % (A) 5.5 %; NRBC Per 100 WBC 0 X 10*3/uL (0.00-0.01); Neutrophils % (A) 78.2 %; Platelet Count 239 X 10*3/uL (140-440); RBC 4.26 X 10*6/uL (4.40-5.60); RDW 12.5 % (11.5-14.5); WBC 12.66 X 10*3/uL (4.50-10.00)
[2023-05-10 10:34] LABS: BUN/Creat Ratio 27.75 Ratio (12.00-20.00); Blood Urea Nitrogen 11.1 mg/dL (9.0-27.0); Calcium 8.7 mg/dL (8.7-10.3); Carbon Dioxide 31.4 mmol/L (21.6-31.8); Chloride 100 mmol/L (96-109); Glucose 75 mg/dL (70-110); Potassium 2.8 mmol/L (3.5-5.5); Sodium 140 mmol/L (135-145)
[2023-05-10 11:41] LABS: Glucose,Whole Blood 302 mg/dL (70-110)
--- NOTE | 2023-05-10 12:08 | P.PN ---
Subjective Progress Note Date: 05/10/23 58-year-old male patient, history of diabetes mellitus, probably type II, presented emergency department because of severe dehydration, altered mentation. Apparently the patient was having symptoms of URI and diarrhea and he came into the emergency department lethargic, weak, altered, hypotensive and he was having significantly elevated blood sugar. He was diagnosed having an acute diabetic ketoacidosis. The patient has not been taking his insulin for more than a year. He apparently has been losing weight. He has not seen a physician for several years. Prior to that, the patient was taken high dose of insulin, exact type and doses are not known. He was having polyuria and polydipsia over the past several months and he presented to us with an acute DKA. In the emergency, he was given a liter of fluids. He is normotensive. He is slightly tachycardic still. He is afebrile. Blood work shows a white cell count of 26, hemoglobin of 13, serum bicarb less than 5 and a large anion gap metabolic acidosis with a potassium level of 2.6, his initial blood sugar was above 600, his total protein is at 3.7 with a albumin of 1.6 and the patient had a lipase level of 5925. UA was positive for ketones and glucose. Covid 19 testing was negative. The rest of the viral screen was also negative. The patient had a CAT scan of the brain and C-spine that showed no acute abnormalities. CAT scan of the chest showed no evidence of any pulmonary embolism. There was peripheral groundglass pulmonary infiltrates consistent with atypical infection such as Covid 19. Accordingly, the patient was admitted to the intensive care unit. Flat film of the abdomen was also done and it showed nonspecific abdomen with multiple dilated loops of bowel in the abdomen consistent with ileus/enteritis. Obstruction was not identified. On examination, his abdomen is nondistended. The patient is following some simple commands. He'll be started on IV fluids and insulin drip. No history of any cardiac disease. No known pulmonary disease. Does not utilize any form of respiratory medications or inhalers. Not taking any diabetic medications for now. The patient is a smoker. Does not drink alcohol. He is currently retired. He lives with his in [place]. On 05/07/2023, the patient is being seen for a follow-up. Is much more awake and alert compared to yesterday and is communicating. He is been aggressively resuscitated with IV fluids. 3 L of IV fluid was given and subsequently he was placed on normal saline at the rate of 200 mL an hour and this morning the patient is on D5 half-normal saline. The patient is also on insulin drip which is running at 0.5 units an hour. Blood sugars under better control. Is still elevated. The patient's anion gap has improved and anion gap is down to 8. Nevertheless, the serum bicarb is still low at 14. The patient continues to have leukocytosis. Potassium is better place and is up to 4.2. Magnesium is being replaced, phosphorus is being replaced. Pro-calcitonin to 0.6. Lipase level is down to 4207 and ultrasound the gallbladder shows limited visualization of the common bile duct. No evidence of any hydronephrosis. Gallbladder shows no stones or wall thickening. No other abnormalities noted. On a separate note, further detailed examination of the patient revealed that the patient has deep tissue injury over the right buttocks and an underlying collection. Rule out development of an underlying abscess. Fasting lipid profile is pending. Hemoglobin A1c still pending. On 05/08/2023, the patient is on IV fluids at KVO. Insulin drip has been discontinued yesterday and the patient was started on Levemir insulin 15 units daily and addition to sliding scale coverage. The patient meanwhile has no significant anion gap and a serum bicarb is up to 21. Sodium levels at 136. Potassium levels at 3.5. Morning blood sugar was 218. The patient is tolerating diet. White cell count remains elevated at 20.1. Hemoglobin is 14.5. No abdominal pain. No nausea or emesis. Awaiting surgical consultation regarding the possibility of a deep tissue injury over the right buttocks area. The patient remains on IV Zosyn as an empiric antibiotic coverage. More alert and awake and currently is on room air oxygen. On 05/09/2023, the patient is doing well. The patient on Levemir insulin 15 units and he is also on NovoLog 4 units with meals plus a sliding scale coverage. Blood sugars under adequate control. BUN is at 19 with a creatinine of 0.3. Sodium level is at 135. Anion gap is down to 2. Serum bicarbs of 30. Potassium level needs to be replaced at 2.8. Lipase has dropped down to 543. No nausea or vomiting or abdominal pain is tolerating diet. Awaiting surgical debridement of the sacral wounds. He is afebrile for now. Mental status is back to normal. He is on room air oxygen. 05/10/2023, no new complaints, awaiting surgical debridement of his sacral 1 and the patient is currently on IV Zosyn. He is also on Levemir insulin 14 units and 4 units of NovoLog with meals. The white cell count is at 12.6 with a hemoglobin of 15.4, BUN is 11 with a creatinine of 0.4 and sodium levels is 140. Potassium is to be replaced. Awake and alert and communicating. Objective - Vital Signs Vital signs: Vital Signs Temp 98.4 F 05/10/23 01:41 Pulse 83 05/10/23 01:41 Resp 16 05/09/23 20:00 BP 151/80 05/10/23 01:41 Pulse Ox 96 05/10/23 01:41 FiO2 Intake & Output 05/09/23 05/10/23 05/10/23 18:59 06:59 18:59 Intake Total 380 Output Total 550 500 Balance -170 -500 Weight 64 kg Intake: IV 380 Piperacillin-Tazobactam 3 200 .375 gm In Sodium Chloride 0.9% 100 ml @ 25 mls/hr IVPB Q8HR [facility] Rx# :[id number] normal saline 180 Output: Urine 550 500 Other: Voiding Method Indwelling Catheter # Voids 1 - Exam Lethargic, weak, looks debilitated and the patient is a body mass index of 20.8, having tachypnea, breathing is nonlabored. The patient is currently on room air oxygen with a pulse ox of 97%. Alert and awake and communicating Head exam was generally normal. There was no scleral icterus or corneal arcus. Mucous membranes were extremely dry. Eyes were sunken. Neck was supple and without jugular venous distension, thyromegaly, or carotid bruits. Carotids were easily palpable bilaterally. There was no adenopathy. Lungs were clear to auscultation and percussion, and with normal diaphragmatic excursion. No wheezes or rales were noted. Cardiac exam revealed the PMI to be normally situated and sized. The rhythm was regular and no extrasystoles were noted during several minutes of auscultation. The first and second heart sounds were normal and physiologic splitting of the second heart sound was noted. There were no murmurs, rubs, clicks, or gallops. Abdominal exam revealed normal bowel sounds. The abdomen was soft, non-tender, and without masses, organomegaly, or appreciable enlargement of the abdominal aorta. Examination of the extremities revealed easily palpable radial, femoral and pedal pulses. There was no cyanosis, clubbing or edema. Skin showing some mottling over the thigh and the right knee area. There is also evidence of trauma involving the right knee with some bruising. Pulses are diminished at the present. There is evidence of a deep tissue injury over the right buttocks with underlying collection which could be fluids/sepsis. Overlying skin is necrotic. Neurologically,Neurologically, the patient is awake and alert and the patient does not have any focal neurological deficit. Cranial nerves are essentially intact. - Labs CBC & Chem 7: 05/10/23 04:33 05/10/23 04:33 Labs: Abnormal Lab Results - Last 24 Hours (Table) 05/09/23 05/09/23 05/09/23 Range/Units 11:29 16:12 20:27 POC Glucose (mg/dL) 273 H 242 H 202 H (70-110) mg/dL Microbiology - Last 24 Hours (Table) 05/06/23 12:50 Blood Culture - Preliminary Blood 05/06/23 13:05 Blood Culture - Preliminary Blood Assessment and Plan Plan: Acute diabetic ketoacidosis, recovered and the patient is currently on long- acting insulin with Levemir, 15 units along with NovoLog 4 units with meals Diabetes mellitus type 2, not receiving any insulin therapy for more than a year. The hemoglobin A1c was about 18 indicating poor blood sugar control on outpatient basis Altered mentation secondary to above, recovered Hypotension with severe dehydration secondary to above, recovered Severe anion gap metabolic acidosis, recovered Acute hypokalemia, treated Acute hypomagnesemia, treated Acute hypomagnesemia Acute leukocytosis, likely reactive deep tissue injury to his right buttocks, will need a surgical evaluation, rule out underlying abscess. Acute pancreatitis, could be related to an underlying viral infection as the pa celia was having symptoms of URI.the lipase level is improving and the ultrasound the gallbladder showed no acute abnormalities. Scattered peripheral groundglass pulmonary infiltrates, highly suggestive of an atypical pneumonia/previous Covid 19 infection. The patient's Covid 19 testing during this current admission was negative and the rest of the viral screen was also negative Hypoproteinemia and hyperlipidemia, could be due to dietary Plan Replaced potassium Keep the patient on Levemir insulin for now and the sinus care coverage, continue same insulin doses Monitor lipase, improving Continue IV Zosyn and consult general surgery regarding the deep tissue injury to his right buttocks, rule out underlying abscess. The surgical the patient will be done tomorrow IV Protonix Heparin subcu for DVT prophylaxis We'll continue to follow and make further recommendations based on his progress. Patient is currently on a medical floor
[2023-05-10] MEDS: POTASSIUM CHLORIDE ER 20 MEQ TAB.ER PO SCH ×3 (12:25→14:29)
[2023-05-10] MEDS ORDERED: POTASSIUM CHLORIDE ER 20 MEQ TAB.ER PO STA (15:49)
[2023-05-10] MEDS ORDERED: POTASSIUM CHLORIDE 20 MEQ in WATER FOR INJECTION 1 100ML.BAG IVPB STA (15:49)
[2023-05-10 16:44] LABS: Glucose,Whole Blood 399 mg/dL (70-110)
[2023-05-10] MEDS: LACTATED RINGERS 1,000 ML IV SCH (17:16)
[2023-05-10 20:45] LABS: Glucose,Whole Blood 285 mg/dL (70-110)
[2023-05-10] MEDS: INSULIN DETEMIR (LEVEMIR) 100 UNIT/ML SYR SQ SCH (20:53)
[2023-05-11 00:09] LABS: Glucose,Whole Blood 204 mg/dL (70-110)
--- NOTE | 2023-05-11 00:36 | P.PN ---
Subjective Progress Note Date: 05/09/23 Patient is a 58-year-old male with a known history of diabetes type 2 currently not taking any medications after losing weight was brought to the hospital a lot her mental status. Patient has been having worsening generalized weakness and decreased responsiveness for the past 1 week. Patient was brought to the hospital by EMS. Patient is a poor historian. Recently moved to [place]. He has been having decreased oral intake. On admission patient was hypothermic. Patient was also hypoxic. Chest x-ray showed no definite acute process. Suspected COPD and basilar scarring and bibasilar atelectasis. 1 cm nodule lateral margin left lower lobe could represent a nipple shadow. Pelvic x-ray showed no acute fracture. CT head and cervical spine showed no acute intracranial process. Nonspecific white matter changes likely secondary to chronic small disease. No evidence of cervical spine fracture. Multilevel degenerative disc disease. CTA chest showed no evidence of pulmonary embolism. Peripheral groundglass pulmonary opacities consistent with atypical pulmonary infection such as combing 19. Esophageal wall thickening correlate for esophagitis. KUB x-ray showed nonspecific nonspecific abdominal. Multiple dilated bowel loops in the abdomen may be related to ileus/enteritis. Obstruction not entirely excluded. Laboratory data showed WBC 26.4 hemoglobin 13.0 and platelets 295 D-dimer 1.24 ABG showed pH 6.89 pCO2 18 and bicarb is 4. Sodium 141 potassium 2.6 chloride 120 bicarb is less than 5 BUN 27 and creatinine 0.79 Osmolality 331 and calcium 4.7 and magnesium 1.4, troponin 1 negative. Albumin 1.6 lipase 4925 , pro calcitonin 0.62. Urinalysis showed 4+ glucose and 3+ ketones. UDS negative and his son positive Influenza A, B, RSV and covid 19 PCR not detected. 05/08/2023 Patient is currently in the MICU. Awake alert and seems to be more oriented today. No complaints of chest pain or shortness of breath. Overall patient is a poor historian otherwise. No nausea vomiting or diarrhea. Tolerating oral diet. Patient is on room air. Insulin drip has been discontinued and anion gap is closed. Patient was started on subcu insulin. Laboratory data showed WBC 20.1, hemoglobin 14.5 and platelets 287 Sodium 136 potassium 3.5 chloride 110 bicarb is 21 anion gap 5 BUN 20 creatinine 0.42 and blood sugar is 241 this morning.. Patient was seen by general surgery due to gluteal abscess and was able to express purulent discharge when present at bedside. Plan for incision and d rainage on Thursday. Patient is being current Zosyn at this time. 05/09/2023 Patient is currently resting in bed. Awake alert and oriented. Patient states that he feels better. Patient has been afebrile. Blood sugars are fairly controlled. Currently on IV antibiotics is on Zosyn. General surgery is planning for I&D of the buttock abscess. No complaints of chest pain or shortness of breath. Able to tolerate oral diet. Mentation is back to baseline. Currently on room air. Laboratory data showed potassium 2.8 which is being replaced. Current medications reviewed. Objective - Vital Signs Vital signs: Vital Signs Temp 98.2 F 05/09/23 08:00 Pulse 98 05/09/23 08:00 Resp 16 05/09/23 08:00 BP 120/72 05/09/23 08:00 Pulse Ox 99 05/09/23 08:00 FiO2 Intake & Output 05/08/23 05/09/23 05/09/23 18:59 06:59 18:59 Intake Total 470 340 Output Total 910 700 Balance -440 -360 Weight 62 kg 62.8 kg Intake: IV 470 340 D5-0.45% NaCl with KCl 50 20Meq/l 1,000 ml @ 50 mls /hr IV .Q20H [facility] Rx#: [id number] Piperacillin-Tazobactam 3 200 100 .375 gm In Sodium Chloride 0.9% 100 ml @ 25 mls/hr IVPB Q8HR [facility] Rx# :[id number] Potassium Chloride 10 meq 100 In Water For Injection 1 100ml.bag @ 100 mls/hr IVPB Q1HR [facility] Rx#: [id number] normal saline 120 240 Output: Urine 910 700 Other: Voiding Method Indwelling Catheter Indwelling Catheter Indwelling Catheter # Bowel Movements 1 - Exam PHYSICAL EXAMINATION: Patient is lying in the bed, no acute distress, awake alert and oriented... HEENT: Normocephalic. Neck is supple. Pupils reactive. Nostrils clear. Oral cavity is moist. Neck reveals no JVD, carotid bruits, or thyromegaly. CHEST EXAMINATION: Trachea is central. Symmetrical expansion. Lung paige clear to auscultation and percussion. Bibasilar diminished sounds. CARDIAC: Normal S1, S2 with no gallops. No murmurs ABDOMEN: Soft. Bowel sounds normal. No organomegaly. No abdominal bruits. Left gluteal pressure wound stage 2 with induration with minimal purulent discharge. Right gluteal pressure ulcer stage I Extremities: reveal no edema. No clubbing or cyanosis Neurologically awake, alert, oriented 2-3. Able to move all extremities. No gross focal deficits noted Skin: No rash or skin lesions except above.. Psychiatric: Coperative. non suicidal. Musculoskeletal: No joint swelling or deformity. - Labs CBC & Chem 7: 05/10/23 04:33 05/10/23 04:33 Labs: Abnormal Lab Results - Last 24 Hours (Table) 05/08/23 05/08/23 05/09/23 Range/Units 16:31 20:46 01:56 Sodium (137-145) mmol/L Potassium (3.5-5.1) mmol/L Creatinine (0.66-1.25) mg/dL POC Glucose (mg/dL) 232 H 265 H 155 H (70-110) mg/dL Lipase (23-300) U/L 05/09/23 05/09/23 Range/Units 03:42 11:29 Sodium 135 L (137-145) mmol/L Potassium 2.8 L (3.5-5.1) mmol/L Creatinine 0.33 L (0.66-1.25) mg/dL POC Glucose (mg/dL) 273 H (70-110) mg/dL Lipase 543 H (23-300) U/L Microbiology - Last 24 Hours (Table) 05/06/23 12:50 Blood Culture - Preliminary Blood 05/06/23 13:05 Blood Culture - Preliminary Blood 05/06/23 14:40 Gram Stain - Final Buttock Wound Culture - Final Escherichia coli Strep agalactiae - (group b) Assessment and Plan Assessment: Acute diabetic ketoacidosis Anion gap Metabolic acidosis Left gluteal abscess and bilateral pressure wounds. Sepsis secondary to above. Patient was hypotensive, responded with IV hydration. Altered mental status secondary to metabolic encephalopathy and infection. Acute pancreatitis with elevated lipase level. Likely due to acute well infection. Ileus Esophageal wall thickening possible esophagitis as per CTA chest. Scattered Groundglass pulmonary infiltrates highly suggestive of atypical pneumonia/previous Covid 19 infection. covid 19 PCR negative at this time. Severe hypokalemia and hypomagnesemia Moderate protein calorie malnutrition Diabetes type 2 uncontrolled with A1c 18. Patient is currently not on any medi cations at home since his weight loss. DVT prophylaxis Plan: Insulin drip has been discontinued. . Anion gap Closed. Continue with IV hydration Patient was started on subcu insulin. Currently on Lantus 15 units at bedtime along with sliding scale. Preprandial insulin 4U TIDAC Replace potassium and magnesium. Gallbladder ultrasound showed no distinct abnormality appreciated.. Continue with PPI IV Continue IV antibiotics now, Zosyn. General surgery is planning for I&D on Thursday. Continue to follow closely. Discussed with his at bedside in detail. Prognosis is guarded. Critical care team and is on board. Time with Patient: Greater than 30
--- NOTE | 2023-05-11 00:37 | P.PN ---
Subjective Progress Note Date: 05/10/23 Patient is a 58-year-old male with a known history of diabetes type 2 currently not taking any medications after losing weight was brought to the hospital a lot her mental status. Patient has been having worsening generalized weakness and decreased responsiveness for the past 1 week. Patient was brought to the hospital by EMS. Patient is a poor historian. Recently moved to [place]. He has been having decreased oral intake. On admission patient was hypothermic. Patient was also hypoxic. Chest x-ray showed no definite acute process. Suspected COPD and basilar scarring and bibasilar atelectasis. 1 cm nodule lateral margin left lower lobe could represent a nipple shadow. Pelvic x-ray showed no acute fracture. CT head and cervical spine showed no acute intracranial process. Nonspecific white matter changes likely secondary to chronic small disease. No evidence of cervical spine fracture. Multilevel degenerative disc disease. CTA chest showed no evidence of pulmonary embolism. Peripheral groundglass pulmonary opacities consistent with atypical pulmonary infection such as combing 19. Esophageal wall thickening correlate for esophagitis. KUB x-ray showed nonspecific nonspecific abdominal. Multiple dilated bowel loops in the abdomen may be related to ileus/enteritis. Obstruction not entirely excluded. Laboratory data showed WBC 26.4 hemoglobin 13.0 and platelets 295 D-dimer 1.24 ABG showed pH 6.89 pCO2 18 and bicarb is 4. Sodium 141 potassium 2.6 chloride 120 bicarb is less than 5 BUN 27 and creatinine 0.79 Osmolality 331 and calcium 4.7 and magnesium 1.4, troponin 1 negative. Albumin 1.6 lipase 4925 , pro calcitonin 0.62. Urinalysis showed 4+ glucose and 3+ ketones. UDS negative and his son positive Influenza A, B, RSV and covid 19 PCR not detected. 05/08/2023 Patient is currently in the MICU. Awake alert and seems to be more oriented today. No complaints of chest pain or shortness of breath. Overall patient is a poor historian otherwise. No nausea vomiting or diarrhea. Tolerating oral diet. Patient is on room air. Insulin drip has been discontinued and anion gap is closed. Patient was started on subcu insulin. Laboratory data showed WBC 20.1, hemoglobin 14.5 and platelets 287 Sodium 136 potassium 3.5 chloride 110 bicarb is 21 anion gap 5 BUN 20 creatinine 0.42 and blood sugar is 241 this morning.. Patient was seen by general surgery due to gluteal abscess and was able to express purulent discharge when present at bedside. Plan for incision and d rainage on Thursday. Patient is being current Zosyn at this time. 05/09/2023 Patient is currently resting in bed. Awake alert and oriented. Patient states that he feels better. Patient has been afebrile. Blood sugars are fairly controlled. Currently on IV antibiotics is on Zosyn. General surgery is planning for I&D of the buttock abscess. No complaints of chest pain or shortness of breath. Able to tolerate oral diet. Mentation is back to baseline. Currently on room air. Laboratory data showed potassium 2.8 which is being replaced. 05/10/2023 Patient is currently in the MedSurg unit. No complaints of chest pain or shortness of breath. Pulmonary. Mentation is baseline. Blood sugar is 79 this morning. Levemir dose decreased to 12 units at bedtime. Patient did not receive insulin coverage after breakfast. Otherwise patient has been afebrile. No cough or sputum production. She has been left gluteal pain and is scheduled for I&D on Thursday. Patient is on Zosyn. Initial cultures showed E. coli and strep atelectae. Current medications reviewed. Objective - Vital Signs Vital signs: Vital Signs Temp 98.3 F 05/10/23 13:40 Pulse 85 05/10/23 13:40 Resp 17 05/10/23 13:40 BP 131/69 05/10/23 13:40 Pulse Ox 97 05/10/23 13:40 FiO2 Intake & Output 05/10/23 05/10/23 05/11/23 06:59 18:59 06:59 Output Total 500 1840 Balance -500 -1840 Weight 64 kg Output: Urine 500 1840 Other: Voiding Method Urinal Urinal # Voids 1 - Exam PHYSICAL EXAMINATION: Patient is lying in the bed, no acute distress, awake alert and oriented... HEENT: Normocephalic. Neck is supple. Pupils reactive. Nostrils clear. Oral cavity is moist. Neck reveals no JVD, carotid bruits, or thyromegaly. CHEST EXAMINATION: Trachea is central. Symmetrical expansion. Lung paige clear to auscultation and percussion. Bibasilar diminished sounds. CARDIAC: Normal S1, S2 with no gallops. No murmurs ABDOMEN: Soft. Bowel sounds normal. No organomegaly. No abdominal bruits. Left gluteal pressure wound stage 2 with induration with minimal purulent discharge. Right gluteal pressure ulcer stage I Extremities: reveal no edema. No clubbing or cyanosis Neurologically awake, alert, oriented 2-3. Able to move all extremities. No gross focal deficits noted Skin: No rash or skin lesions except above.. Psychiatric: Coperative. non suicidal. Musculoskeletal: No joint swelling or deformity. - Labs CBC & Chem 7: 05/10/23 04:33 05/10/23 04:33 Labs: Abnormal Lab Results - Last 24 Hours (Table) 05/10/23 05/10/23 05/10/23 Range/Units 04:33 04:33 11:31 WBC 12.66 H (4.50-10.00) X 10*3/uL RBC 4.26 L (4.40-5.60) X 10*6/uL Hct 38.4 L (39.6-50.0) % Neutrophils # 9.90 H (1.80-7.70) X 10*3/uL Eosinophils # 0.03 L (0.04-0.35) X 10*3/uL Potassium 2.8 L (3.5-5.5) mmol/L Creatinine 0.4 L (0.6-1.5) mg/dL BUN/Creatinine Ratio 27.75 H (12.00-20.00) Ratio POC Glucose (mg/dL) 302 H (70-110) mg/dL 05/10/23 Range/Units 16:40 WBC (4.50-10.00) X 10*3/uL RBC (4.40-5.60) X 10*6/uL Hct (39.6-50.0) % Neutrophils # (1.80-7.70) X 10*3/uL Eosinophils # (0.04-0.35) X 10*3/uL Potassium (3.5-5.5) mmol/L Creatinine (0.6-1.5) mg/dL BUN/Creatinine Ratio (12.00-20.00) Ratio POC Glucose (mg/dL) 399 H (70-110) mg/dL Microbiology - Last 24 Hours (Table) 05/06/23 12:50 Blood Culture - Preliminary Blood 05/06/23 13:05 Blood Culture - Preliminary Blood Assessment and Plan Assessment: Acute diabetic ketoacidosis. resolved Anion gap Metabolic acidosis. resolved Left gluteal abscess and bilateral pressure wounds. Sepsis secondary to above. Patient was hypotensive, responded with IV hydration. Altered mental status secondary to metabolic encephalopathy and infection. Acute pancreatitis with elevated lipase level. Likely due to acute well infection. improved Ileus Esophageal wall thickening possible esophagitis as per CTA chest. Scattered Groundglass pulmonary infiltrates highly suggestive of atypical pneumonia/previous Covid 19 infection. covid 19 PCR negative at this time. Severe hypokalemia and hypomagnesemia Moderate protein calorie malnutrition Diabetes type 2 uncontrolled with A1c 18. Patient is currently not on any medications at home since his weight loss. DVT prophylaxis Plan: Insulin drip has been discontinued. . Anion gap Closed. Continue with IV hydration Patient was started on subcu insulin. Currently on Lantus 15-->12 units at bedtime along with sliding scale. Preprandial insulin 4U TIDAC Replace potassium and magnesium. Gallbladder ultrasound showed no distinct abnormality appreciated.. Continue with PPI IV Continue IV antibiotics now, Zosyn. General surgery is planning for I&D on Thursday. Continue to follow closely. Discussed with his at bedside in detail. Prognosis is guarded. Critical care team and is on board. Time with Patient: Greater than 30
[2023-05-11] MEDS: POTASSIUM CHLORIDE ER 20 MEQ TAB.ER PO SCH ×3 (02:03→21:41)
[2023-05-11 02:06] LABS: Glucose,Whole Blood 150 mg/dL (70-110)
[2023-05-11] MEDS: INSULIN ASPART (NovoLOG) 100 UNIT/ML VIAL SQ SCH ×8 (02:08→21:40)
[2023-05-11 06:19] LABS: Glucose,Whole Blood 166 mg/dL (70-110)
[2023-05-11] MEDS: HEPARIN SODIUM,PORCINE 5,000 UNIT/ML 1 ML VIAL SQ SCH ×3 (07:41→23:34)
[2023-05-11 08:34] LABS: Basophils % (A) 0 %; Eosinophils # (A) 0.1 k/uL (0-0.7); Eosinophils % (A) 1 %; HCT 41.3 % (39.0-53.0); HGB 13.8 gm/dL (13.0-17.5); Lymphocytes # (A) 1.8 k/uL (1.0-4.8); Lymphocytes % (A) 17 %; MCH 31.1 pg (25.0-35.0); MCHC 33.4 g/dL (31.0-37.0); Mean Platelet Volume 7.9; Monocytes # (A) 0.5 k/uL (0-1.0); Monocytes % (A) 5 %; Neutrophils % (A) 76 %; Platelet Count 257 k/uL (150-450); RBC 4.44 m/uL (4.30-5.90); RDW 12.5 % (11.5-15.5); WBC 10.6 k/uL (3.8-10.6)
[2023-05-11] MEDS: GABAPENTIN 300 MG CAP PO SCH ×2 (08:40→21:41)
[2023-05-11] MEDS: PANTOPRAZOLE 40 MG/10 ML VIAL IV SCH (08:40)
[2023-05-11] MEDS: PIPERACILLIN-TAZOBACTAM 3.375 GM in SODIUM CHLORIDE 0.9% 100 ML IVPB SCH ×3 (08:40→23:34)
[2023-05-11 08:41] LABS: African American GFR (CKD) >90 (>60 ml/min/1.73 sqM); Anion Gap 2 mmol/L; Blood Urea Nitrogen 17 mg/dL (9-20); Calcium 8.4 mg/dL (8.4-10.2); Carbon Dioxide 31 mmol/L (22-30); Chloride 101 mmol/L (98-107); Glucose 83 mg/dL (74-99); Non-African American GFR(CKD) >90 (>60 ml/min/1.73 sqM); Potassium 3.9 mmol/L (3.5-5.1); Sodium 134 mmol/L (137-145)
[2023-05-11] MEDS ORDERED: LACTATED RINGERS 1,000 ML IV ONE ×2 (09:52→11:58)
[2023-05-11] MEDS: ONDANSETRON 4 MG/2 ML VIAL IVP ONE ×2 (10:02→13:31)
[2023-05-11] MEDS ORDERED: ONDANSETRON 4 MG/2 ML VIAL IVP ONE (10:02)
[2023-05-11 10:09] LABS: Glucose,Whole Blood 67 mg/dL (70-110)
[2023-05-11 10:34] LABS: Glucose,Whole Blood 141 mg/dL (70-110)
--- NOTE | 2023-05-11 11:35 | P.PN ---
Subjective Progress Note Date: 05/11/23 58-year-old male patient, history of diabetes mellitus, probably type II, presented emergency department because of severe dehydration, altered mentation. Apparently the patient was having symptoms of URI and diarrhea and he came into the emergency department lethargic, weak, altered, hypotensive and he was having significantly elevated blood sugar. He was diagnosed having an acute diabetic ketoacidosis. The patient has not been taking his insulin for more than a year. He apparently has been losing weight. He has not seen a physician for several years. Prior to that, the patient was taken high dose of insulin, exact type and doses are not known. He was having polyuria and polydipsia over the past several months and he presented to us with an acute DKA. In the emergency, he was given a liter of fluids. He is normotensive. He is slightly tachycardic still. He is afebrile. Blood work shows a white cell count of 26, hemoglobin of 13, serum bicarb less than 5 and a large anion gap metabolic acidosis with a potassium level of 2.6, his initial blood sugar was above 600, his total protein is at 3.7 with a albumin of 1.6 and the patient had a lipase level of 5925. UA was positive for ketones and glucose. Covid 19 testing was negative. The rest of the viral screen was also negative. The patient had a CAT scan of the brain and C-spine that showed no acute abnormalities. CAT scan of the chest showed no evidence of any pulmonary embolism. There was peripheral groundglass pulmonary infiltrates consistent with atypical infection such as Covid 19. Accordingly, the patient was admitted to the intensive care unit. Flat film of the abdomen was also done and it showed nonspecific abdomen with multiple dilated loops of bowel in the abdomen consistent with ileus/enteritis. Obstruction was not identified. On examination, his abdomen is nondistended. The patient is following some simple commands. He'll be started on IV fluids and insulin drip. No history of any cardiac disease. No known pulmonary disease. Does not utilize any form of respiratory medications or inhalers. Not taking any diabetic medications for now. The patient is a smoker. Does not drink alcohol. He is currently retired. He lives with his in [place]. On 05/07/2023, the patient is being seen for a follow-up. Is much more awake and alert compared to yesterday and is communicating. He is been aggressively resuscitated with IV fluids. 3 L of IV fluid was given and subsequently he was placed on normal saline at the rate of 200 mL an hour and this morning the patient is on D5 half-normal saline. The patient is also on insulin drip which is running at 0.5 units an hour. Blood sugars under better control. Is still elevated. The patient's anion gap has improved and anion gap is down to 8. Nevertheless, the serum bicarb is still low at 14. The patient continues to have leukocytosis. Potassium is better place and is up to 4.2. Magnesium is being replaced, phosphorus is being replaced. Pro-calcitonin to 0.6. Lipase level is down to 4207 and ultrasound the gallbladder shows limited visualization of the common bile duct. No evidence of any hydronephrosis. Gallbladder shows no stones or wall thickening. No other abnormalities noted. On a separate note, further detailed examination of the patient revealed that the patient has deep tissue injury over the right buttocks and an underlying collection. Rule out development of an underlying abscess. Fasting lipid profile is pending. Hemoglobin A1c still pending. On 05/08/2023, the patient is on IV fluids at KVO. Insulin drip has been discontinued yesterday and the patient was started on Levemir insulin 15 units daily and addition to sliding scale coverage. The patient meanwhile has no significant anion gap and a serum bicarb is up to 21. Sodium levels at 136. Potassium levels at 3.5. Morning blood sugar was 218. The patient is tolerating diet. White cell count remains elevated at 20.1. Hemoglobin is 14.5. No abdominal pain. No nausea or emesis. Awaiting surgical consultation regarding the possibility of a deep tissue injury over the right buttocks area. The patient remains on IV Zosyn as an empiric antibiotic coverage. More alert and awake and currently is on room air oxygen. On 05/09/2023, the patient is doing well. The patient on Levemir insulin 15 units and he is also on NovoLog 4 units with meals plus a sliding scale coverage. Blood sugars under adequate control. BUN is at 19 with a creatinine of 0.3. Sodium level is at 135. Anion gap is down to 2. Serum bicarbs of 30. Potassium level needs to be replaced at 2.8. Lipase has dropped down to 543. No nausea or vomiting or abdominal pain is tolerating diet. Awaiting surgical debridement of the sacral wounds. He is afebrile for now. Mental status is back to normal. He is on room air oxygen. 05/10/2023, no new complaints, awaiting surgical debridement of his sacral 1 and the patient is currently on IV Zosyn. He is also on Levemir insulin 14 units and 4 units of NovoLog with meals. The white cell count is at 12.6 with a hemoglobin of 15.4, BUN is 11 with a creatinine of 0.4 and sodium levels is 140. Potassium is to be replaced. Awake and alert and communicating. The patient is seen today 05/11/2023 in follow-up on the regular medical floor. He is awake and alert, oriented. Maintaining good O2 saturations in the 90s on room air. He is going for deep breathing treatment of the left gluteal sacral wound. Wound cultures were positive for E. coli and strep agalactiae group B. He remains on Zosyn. White count 10.6. Hemoglobin 13.8. Sodium 134. Potassium 3.9. Bicarb 31. BUN 17. Creatinine 0.32. Heparin for DVT prophylaxis. Objective - Vital Signs Vital signs: Vital Signs Temp 97.1 F L 05/11/23 09:53 Pulse 86 05/11/23 09:53 Resp 16 05/11/23 09:53 BP 128/73 05/11/23 09:53 Pulse Ox 98 05/11/23 09:53 FiO2 Intake & Output 05/10/23 05/11/23 05/11/23 18:59 06:59 18:59 Intake Total 500 Output Total 1840 450 300 Balance -1840 -450 200 Intake: IV 500 Output: Urine 1840 450 300 Other: Voiding Method Urinal Urinal - Exam GENERAL EXAM: Alert, oriented, pleasant 58-year-old male, on room air, comfortable in no apparent distress. HEAD: Normocephalic. EYES: Normal reaction of pupils, equal size. NOSE: Clear with pink turbinates. THROAT: No erythema or exudates. NECK: No masses, no JVD. CHEST: No chest wall deformity. LUNGS: Equal air entry with no crackles, wheeze, rhonchi or dullness. CVS: S1 and S2 normal with no audible murmur, regular rhythm. ABDOMEN: No hepatosplenomegaly, normal bowel sounds, no guarding or rigidity. SPINE: No scoliosis or deformity SKIN: No rashes. There is a left gluteal deep tissue abscess/wound. CENTRAL NERVOUS SYSTEM: No focal deficits, tone is normal in all 4 extremities. EXTREMITIES: There is no peripheral edema. No clubbing, no cyanosis. Peripheral pulses are intact. - Labs CBC & Chem 7: 05/11/23 07:29 05/11/23 07:29 Labs: Abnormal Lab Results - Last 24 Hours (Table) 05/10/23 05/10/23 05/10/23 Range/Units 11:31 16:40 20:43 Neutrophils # (1.3-7.7) k/uL Sodium (137-145) mmol/L Carbon Dioxide (22-30) mmol/L Creatinine (0.66-1.25) mg/dL POC Glucose (mg/dL) 302 H 399 H 285 H (70-110) mg/dL 05/11/23 05/11/23 05/11/23 Range/Units 00:08 02:06 06:17 Neutrophils # (1.3-7.7) k/uL Sodium (137-145) mmol/L Carbon Dioxide (22-30) mmol/L Creatinine (0.66-1.25) mg/dL POC Glucose (mg/dL) 204 H 150 H 166 H (70-110) mg/dL 05/11/23 05/11/23 05/11/23 Range/Units 07:29 07:29 10:08 Neutrophils # 8.0 H (1.3-7.7) k/uL Sodium 134 L (137-145) mmol/L Carbon Dioxide 31 H (22-30) mmol/L Creatinine 0.32 L (0.66-1.25) mg/dL POC Glucose (mg/dL) 67 L (70-110) mg/dL 05/11/23 Range/Units 10:33 Neutrophils # (1.3-7.7) k/uL Sodium (137-145) mmol/L Carbon Dioxide (22-30) mmol/L Creatinine (0.66-1.25) mg/dL POC Glucose (mg/dL) 141 H (70-110) mg/dL Assessment and Plan Assessment: Acute diabetic ketoacidosis, recovered and the patient is currently on long- acting insulin with Levemir, 12 units along with NovoLog 4 units with meals Diabetes mellitus type 2, not receiving any insulin therapy for more than a year. The hemoglobin A1c was greater than 18 indicating poor blood sugar control on outpatient basis Altered mentation secondary to above, recovered Hypotension with severe dehydration secondary to above, recovered Severe anion gap metabolic acidosis, recovered Acute hypokalemia, treated Acute hypomagnesemia, treated Acute hypomagnesemia Acute leukocytosis, likely reactive Deep tissue injury to his left buttocks, will need a surgical evaluation, rule out underlying abscess. Acute pancreatitis, could be related to an underlying viral infection as the patient was having symptoms of URI. The lipase level is improving and the ultrasound the gallbladder showed no acute abnormalities. Scattered peripheral groundglass pulmonary infiltrates, highly suggestive of an atypical pneumonia/previous Covid 19 infection. The patient's Covid 19 testing during this current admission was negative and the rest of the viral screen was also negative An: The patient was seen and evaluated Labs and medications reviewed Stable and on room air To go for left gluteal wound debridement today Continued on Zosyn We will continue to follow I have personally seen and examined the patient, performed the documentation and the assessment and plan as written. Number of minutes spent on the visit: 10.
[2023-05-11] MEDS ORDERED: PROPOFOL 10 MG/ML 20 ML VIAL IV ONE (11:53)
[2023-05-11] MEDS ORDERED: KETAMINE 10 MG/ML 20 ML VIAL ONE (11:53)
[2023-05-11] MEDS ORDERED: SUCCINYLCHOLINE CHLORIDE 200 MG/10 ML VIAL IV ONE (11:53)
[2023-05-11] MEDS ORDERED: fentaNYL (PF) 50 MCG/ML 2 ML AMP ONE (11:53)
[2023-05-11] MEDS ORDERED: KETOROLAC 15 MG/ML 1 ML VIAL ONE (11:53)
[2023-05-11] MEDS ORDERED: LIDOCAINE 2% INJ 20 MG/ML (2 ML VIAL) ONE (11:53)
[2023-05-11] MEDS ORDERED: PHENYLEPHRINE-0.9% NACL SYG 1,000 MCG/10 ML SYRINGE ONE (11:53)
[2023-05-11] MEDS ORDERED: BUPIVACAINE (PF) 0.25% 30 ML VIAL SQ ONE (12:23)
--- NOTE | 2023-05-11 12:41 | P.OP ---
Date of Procedure: 05/11/23 Preoperative Diagnosis: Decubitus ulcer Postoperative Diagnosis: Sacral to give us ulcer Procedure(s) Performed: Debridement of sacral he was ulcer Anesthesia: MAC Surgeon: Von Bansal Estimated Blood Loss (ml): 25 Pathology: other (Necrotic skin subcutaneous fat muscle) Condition: stable Disposition: PACU Description of Procedure: The patient's placed on the operative table in the prone position after receiving general endotracheal tube anesthesia. His perineum was prepped and draped usual fashion. Patient had a decubitus ulcer located in the right perirectal area there is a tunnel that connected another decubitus ulcer the prostate 5 Center meters. Is. The necrotic skin was divided using sharp dissection with a 15 blade and using electrocautery the necrotic tissue containing skin subcutaneous fat muscle was debrided complete. Hemostasis was achieved electrocautery. The wound was then packed with wet-to-dry Kerlix dressing. The wound measured approximately 10 5 5 x 4 cm it was located on the right perianal area. Patient top procedure well.
[2023-05-11 13:04] VITALS: BMI 20.8
[2023-05-11 13:07] LABS: Glucose,Whole Blood 93 mg/dL (70-110)
[2023-05-11 16:36] LABS: Glucose,Whole Blood 304 mg/dL (70-110)
[2023-05-11 20:56] LABS: Glucose,Whole Blood 401 mg/dL (70-110)
[2023-05-11] MEDS ORDERED: INSULIN DETEMIR (LEVEMIR) 100 UNIT/ML SYR SQ STA (21:19)
[2023-05-11] MEDS: INSULIN DETEMIR (LEVEMIR) 100 UNIT/ML SYR SQ SCH (21:40)
--- NOTE | 2023-05-11 22:55 | P.CONS ---
History of Present Illness - Reason for Consult Consult date: 05/11/23 Sacral abscess Requesting physician: Ridge Sanches - Chief Complaint Pain and drainage from the sacral X days - History of Present Illness Patient is a 58-year-old male who presenting to the hospital about 5 days ago for evaluation of decreased level of consciousness mental status changes apparently has been going on for few days patient apparently also have a wound to the sacral area for the patient has been evaluated by surgery and the patient did have a surgical debridement of this wound did not mention progression down to the bone patient did have cultures obtained from it on admission on 05/23/2023 we did grow E. coli and Streptococcus agalactiae blood culture has been negative infectious disease was consulted today for further management of antibiotic therapy as far as his sacral wound and abscess patient mention that he has this wound that is been going on for couple of weeks now he is not very clear how it started patient has been complaining of pain to the sacral wound area to be more of a sharp in nature intensity almost 7 years after no radiation with associated cellulitis and did have some purulent drainage patient did have some chills but denies high grade fever on presentation to the hospital patient was initially hypothermic temperature of 90 F subsequently temperature has normalized patient was not hypotensive or tachycardic, patient did have a white count of 26,000 on admission vital subsequent normalized kidney function was normal urine has been negative influenza RSV and COVID testing was negative drug screen was negative CT angiogram of the chest no evidence of PE peripheral groundglass opacity esophageal wall thickening Review of Systems Positive point and negatives has been mentioned in the HPI, complete review of systems was performed and all other systems are negative Past Medical History Past Medical History: No Reported History, Heart Failure, Diabetes Mellitus History of Any Multi-Drug Resistant Organisms: None Reported Past Surgical History: No Surgical Hx Reported Past Anesthesia/Blood Transfusion Reactions: No Reported Reaction Past Psychological History: No Psychological Hx Reported Smoking Status: Current every day smoker - Past Family History Father Family Medical History: Cancer Mother Family Medical History: Congestive Heart Failure (CHF), Diabetes Mellitus Medications and Allergies Home Medications Medication Instructions Recorded Confirmed Type Calcium Carbonate [Tums] 1,000 mg PO TID PRN tab 05/15/23 Rx Gabapentin [Neurontin] 300 mg PO BID #6 cap 05/15/23 Rx HYDROcodone/APAP 5-325MG [[place] 1 each PO Q4HR PRN #9 tab 05/15/23 Rx 5-325] INSULIN ASPART (NovoLOG) [NovoLOG 6 unit SQ [id number] 30 Days #6 each 05/15/23 Rx (formulary)] Insulin Detemir (Levemir) [Levemir] 10 unit SQ BID@0700,2100 30 Days 05/15/23 Rx #5 each cefTRIAXone [Rocephin] 2,000 mg IVP Q24HR #21 each 05/15/23 Rx metFORMIN HCL [Glucophage] 500 mg PO BID-W/MEALS 30 Days #60 05/15/23 Rx tab Allergies Allergy/AdvReac Type Severity Reaction Status Date / Time No Known Allergies Allergy Verified 05/06/23 14:08 Physical Exam Vitals: Vital Signs Temp Pulse Pulse Pulse Resp BP Pulse Ox 05/11/23 14:00 97.9 F 67 18 147/70 98 05/11/23 13:24 85 16 154/84 100 05/11/23 13:11 78 16 159/81 100 05/11/23 12:55 97 F L 84 14 177/91 100 05/11/23 09:53 97.1 F L 86 16 128/73 98 05/11/23 08:00 98.1 F 74 17 142/78 98 05/11/23 01:43 98.1 F 87 113/74 99 05/10/23 20:00 99.1 F 88 17 141/76 97 Intake and Output 05/11/23 05/11/23 05/11/23 06:59 14:59 22:59 Intake Total 1350 Output Total 450 310 Balance -450 1040 Intake: IV 1350 Output: Urine 450 300 Estimated Blood Loss 10 Other: Voiding Method Urinal Weight 64 kg GENERAL DESCRIPTION: Middle-aged male lying in bed, no distress. No tachypnea or accessory muscle of respiration use. HEENT: Shows Pallor , no scleral icterus. Oral mucous membrane is dry. No pharyngeal erythema or thrush NECK: Trachea central, no thyromegaly. LUNGS: Unlabored breathing. Clear to auscultation anteriorly. No wheeze or crackle. HEART: S1, S2, regular rate and rhythm. No loud murmur ABDOMEN: Soft, no tenderness , guarding or rigidity, no organomegaly EXTREMITIES: No edema of feet. SKIN: No rash, no masses palpable. Patient sacral wound is currently covered with the OR dressing no drainage on the dressing NEUROLOGICAL: The patient is awake, alert, oriented x3, mood and affect normal. Results CBC & Chem 7: 05/14/23 06:02 05/14/23 06:02 Labs: Abnormal Lab Results - Last 24 Hours (Table) 05/10/23 05/11/23 05/11/23 Range/Units 20:43 00:08 02:06 Neutrophils # (1.3-7.7) k/uL Sodium (137-145) mmol/L Carbon Dioxide (22-30) mmol/L Creatinine (0.66-1.25) mg/dL POC Glucose (mg/dL) 285 H 204 H 150 H (70-110) mg/dL 05/11/23 05/11/23 05/11/23 Range/Units 06:17 07:29 07:29 Neutrophils # 8.0 H (1.3-7.7) k/uL Sodium 134 L (137-145) mmol/L Carbon Dioxide 31 H (22-30) mmol/L Creatinine 0.32 L (0.66-1.25) mg/dL POC Glucose (mg/dL) 166 H (70-110) mg/dL 05/11/23 05/11/23 05/11/23 Range/Units 10:08 10:33 16:35 Neutrophils # (1.3-7.7) k/uL Sodium (137-145) mmol/L Carbon Dioxide (22-30) mmol/L Creatinine (0.66-1.25) mg/dL POC Glucose (mg/dL) 67 L 141 H 304 H (70-110) mg/dL Assessment and Plan (1) Abscess of sacrum Status: Acute Code(s): M46.28 - OSTEOMYELITIS OF VERTEBRA, SACRAL AND SACROCOCCYGEAL REGION SNOMED Code(s): 779893100 Plan: 1patient with sacral abscess and nonhealing wound status post surgical debridement and this patient has been hospital for the last 6 days requiring review of his hospital stay in this patient who did have a hypothymia elevated white count with features of sepsis source likely infected sacral ulcer and abscess status post surgical debridement with initial culture positive for E. coli and Streptococcus 2-we will wait for the surgical deep cultures to finalize 3-for now continue with the Zosyn should provide adequate antibiotic coverage 4-duration and type of antibiotic x1 clinical response and final cultures at the bedside multiple questions concern answered We will follow on clinical condition and cultures to further adjust medication if needed Thank you for this consultation we will follow the patient along with you Dictation was produced using [employer] dictation software. please excuse any grammatical, word or spelling errors. Time with Patient: Greater than 30
[2023-05-11] MEDS: LACTATED RINGERS 1,000 ML IV SCH (23:35)
--- NOTE | 2023-05-11 23:52 | PN ---
PROGRESS NOTE DATE OF SERVICE: 05/11/2023 SUBJECTIVE: This is a 58-year-old gentleman who was admitted with left gluteal abscess, also diabetic ketosis. The patient is noncompliant. The patient is not seeing any primary physician at this time. The patient underwent debridement of sacral ulcer by Dr. Bansal. No chest pain, no palpitations. PAST MEDICAL HISTORY: Reviewed. REVIEW OF SYSTEMS: A 14-point review is negative except as mentioned. CURRENT MEDICATIONS: Reviewed. PHYSICAL EXAMINATION: VITAL SIGNS: Pulse 67, blood pressure n, respirations 18. CHEST: Clear to auscultation. CARDIOVASCULAR: S1, S2. ABDOMEN: Soft. Sacral ulcer present. LABORATORY DATA: Reviewed. ASSESSMENT: 1. Left sacral ulcer, status post debridement. 2. Acute diabetic ketoacidosis present on admission with anion gap metabolic acidosis. 3. sepsis. 4. Change in mental status. 5. Acute pancreatitis. 6. Esophageal thickening on the CAT scan. 7. Multiple medical issues. 8. History of noncompliance. RECOMMENDATIONS: Recommended to continue current management, continue symptomatic treatment, importance of compliance is stressed with the patient. Otherwise, we will monitor the hemoglobin closely. The patient is on insulin. Monitor the blood sugars closely. The amylase and lipase are improved. Normally, hemoglobin A1c is more than 18. Prognosis guarded. Further recommendations to follow. See orders for details and adjust insulin dosage. MMODL / IJN: [id number] / MTDTrace
[2023-05-12 02:23] LABS: Glucose,Whole Blood 236 mg/dL (70-110)
[2023-05-12] MEDS: INSULIN ASPART (NovoLOG) 100 UNIT/ML VIAL SQ SCH ×8 (02:26→23:03)
[2023-05-12 05:44] LABS: Glucose,Whole Blood 78 mg/dL (70-110)
[2023-05-12] MEDS: PIPERACILLIN-TAZOBACTAM 3.375 GM in SODIUM CHLORIDE 0.9% 100 ML IVPB SCH ×2 (07:55→15:52)
[2023-05-12] MEDS: GABAPENTIN 300 MG CAP PO SCH ×2 (07:56→23:03)
[2023-05-12] MEDS: HEPARIN SODIUM,PORCINE 5,000 UNIT/ML 1 ML VIAL SQ SCH ×2 (07:56→15:43)
[2023-05-12] MEDS: PANTOPRAZOLE 40 MG/10 ML VIAL IV SCH (07:56)
[2023-05-12] MEDS: HYDROcodone/APAP 5-325MG 1 EACH TAB PO PRN ×3 (08:53→20:39)
--- NOTE | 2023-05-12 11:12 | P.CONS ---
History of Present Illness - Reason for Consult Consult date: 05/12/23 wound care - History of Present Illness This is a [age]-year-old gentleman being seen on 4 S. for a nonhealing ulceration to the right buttocks. Patient underwent a surgical debridement resulting in an ulceration that measures 10.5 x 5 x 4 cm. The ulceration extends to the perianal area. Due to this a negative pressure wound VAC would not be advised. Patient has muscle exposure without necrosis. Undermining is noted. Granulation is seen throughout the wound bed. Patient's past medical history significant for diabetes and heart failure he is a current every day smoker. Review Of Systems: Constitutional: No fever, no chills, no night sweats. No weight change. No weakness, fatigue or lethargy. No daytime sleepiness. Integumentary:reports wounds, no lesions. No rash or pruritus. No unusual bruising. No change in hair or nails. Physical exam: General Appearance: Alert, cooperative, no distress, appears stated age. Skin: See HPI all other Skin color, texture, tugor normal, no rashes or lesions. Neurologic: Alert oriented x3 Assessment: 1. Stage IV pressure ulcer right buttocks 2. Diabetes with skin ulceration 3. Nicotine dependence Plan: 1. Apply absorptive silver rope moistened, Kerlix for packing and AVD. Change Thursday. Offloading of the right buttocks. Utilize a air- filled cushion when sitting for minimal time. Increased protein. Smoking cessation. Patient would benefit from advance wound care upon discharge. We'll be happy to see the patient in the wound care center upon discharge. Thank you for the consultation any questions please contact the wound care center DNP note has been reviewed and discussed with Dr. Helms and the impression and plan of care has been directed as dictated. Past Medical History Past Medical History: No Reported History, Heart Failure, Diabetes Mellitus History of Any Multi-Drug Resistant Organisms: None Reported Past Surgical History: No Surgical Hx Reported Past Anesthesia/Blood Transfusion Reactions: No Reported Reaction Past Psychological History: No Psychological Hx Reported Smoking Status: Current every day smoker - Past Family History Father Family Medical History: Cancer Mother Family Medical History: Congestive Heart Failure (CHF), Diabetes Mellitus Medications and Allergies Home Medications Medication Instructions Recorded Confirmed Type No Known Home Medications 05/06/23 05/06/23 History Allergies Allergy/AdvReac Type Severity Reaction Status Date / Time No Known Allergies Allergy Verified 05/06/23 14:08 Physical Exam Vitals: Vital Signs Temp Pulse Resp BP Pulse Ox 05/12/23 07:24 97.6 F 88 17 115/62 96 05/12/23 00:20 98.0 F 87 18 132/85 100 05/11/23 19:25 98.1 F 90 18 133/79 99 05/11/23 14:00 97.9 F 67 18 147/70 98 05/11/23 13:24 85 16 154/84 100 05/11/23 13:11 78 16 159/81 100 05/11/23 12:55 97 F L 84 14 177/91 100 Intake and Output 05/11/23 05/12/23 05/12/23 22:59 06:59 14:59 Other: Voiding Method Urinal # Voids 2 1 Results CBC & Chem 7: 05/11/23 07:29 05/11/23 07:29 Labs: Abnormal Lab Results - Last 24 Hours (Table) 05/11/23 05/11/23 05/12/23 Range/Units 16:35 20:55 02:22 POC Glucose (mg/dL) 304 H 401 H 236 H (70-110) mg/dL Microbiology - Last 24 Hours (Table) 05/11/23 12:35 Gram Stain - Preliminary Buttock 05/06/23 12:50 Blood Culture - Final Blood 05/06/23 13:05 Blood Culture - Final Blood Assessment and Plan (1) Pressure injury of right buttock, stage 4 Current Visit: Yes Status: Acute Code(s): L89.314 - PRESSURE ULCER OF RIGHT BUTTOCK, STAGE 4 SNOMED Code(s): 69415492363688 (2) Type 2 diabetes mellitus with other skin ulcer Current Visit: Yes Status: Acute Code(s): E11.622 - TYPE 2 DIABETES MELLITUS WITH OTHER SKIN ULCER; L98.499 - NON-PRESSURE CHRONIC ULCER OF SKIN OF SITES W UNSP SEVERITY SNOMED Code(s): 502814832 (3) Smoking Current Visit: Yes Status: Acute Code(s): F17.200 - NICOTINE DEPENDENCE, UNSPECIFIED, UNCOMPLICATED SNOMED Code(s): 93108827
[2023-05-12 11:18] LABS: Basophils # (A) 0.06 X 10*3/uL (0.00-0.10); Basophils % (A) 0.6 %; Eosinophils # (A) 0.11 X 10*3/uL (0.04-0.35); Eosinophils % (A) 1.1 %; HCT 39.6 % (39.6-50.0); HGB 13.7 d/dL (13.0-17.0); Lymphocytes # (A) 2.14 X 10*3/uL (0.90-5.00); Lymphocytes % (A) 21.1 %; MCH 31.5 pg (27.0-32.0); MCHC 34.6 d/dL (32.0-37.0); Mean Platelet Volume 9.7 FL (9.5-12.2); Monocytes % (A) 12.8 %; NRBC Per 100 WBC 0 X 10*3/uL (0.00-0.01); Neutrophils # (A) 6.35 X 10*3/uL (1.80-7.70); Neutrophils % (A) 62.8 %; Platelet Count 301 X 10*3/uL (140-440); RBC 4.35 X 10*6/uL (4.40-5.60); RDW 12.1 % (11.5-14.5); WBC 10.12 X 10*3/uL (4.50-10.00)
[2023-05-12 11:24] LABS: Glucose,Whole Blood 183 mg/dL (70-110)
[2023-05-12 11:25] LABS: Blood Urea Nitrogen 12.4 mg/dL (9.0-27.0); Calcium 8.9 mg/dL (8.7-10.3); Carbon Dioxide 27.5 mmol/L (21.6-31.8); Chloride 100 mmol/L (96-109); Glucose 55 mg/dL (70-110); Potassium 4.1 mmol/L (3.5-5.5); Sodium 139 mmol/L (135-145)
--- NOTE | 2023-05-12 12:23 | P.PN ---
Subjective Progress Note Date: 05/12/23 58-year-old male patient, history of diabetes mellitus, probably type II, presented emergency department because of severe dehydration, altered mentation. Apparently the patient was having symptoms of URI and diarrhea and he came into the emergency department lethargic, weak, altered, hypotensive and he was having significantly elevated blood sugar. He was diagnosed having an acute diabetic ketoacidosis. The patient has not been taking his insulin for more than a year. He apparently has been losing weight. He has not seen a physician for several years. Prior to that, the patient was taken high dose of insulin, exact type and doses are not known. He was having polyuria and polydipsia over the past several months and he presented to us with an acute DKA. In the emergency, he was given a liter of fluids. He is normotensive. He is slightly tachycardic still. He is afebrile. Blood work shows a white cell count of 26, hemoglobin of 13, serum bicarb less than 5 and a large anion gap metabolic acidosis with a potassium level of 2.6, his initial blood sugar was above 600, his total protein is at 3.7 with a albumin of 1.6 and the patient had a lipase level of 5925. UA was positive for ketones and glucose. Covid 19 testing was negative. The rest of the viral screen was also negative. The patient had a CAT scan of the brain and C-spine that showed no acute abnormalities. CAT scan of the chest showed no evidence of any pulmonary embolism. There was peripheral groundglass pulmonary infiltrates consistent with atypical infection such as Covid 19. Accordingly, the patient was admitted to the intensive care unit. Flat film of the abdomen was also done and it showed nonspecific abdomen with multiple dilated loops of bowel in the abdomen consistent with ileus/enteritis. Obstruction was not identified. On examination, his abdomen is nondistended. The patient is following some simple commands. He'll be started on IV fluids and insulin drip. No history of any cardiac disease. No known pulmonary disease. Does not utilize any form of respiratory medications or inhalers. Not taking any diabetic medications for now. The patient is a smoker. Does not drink alcohol. He is currently retired. He lives with his in [place]. On 05/07/2023, the patient is being seen for a follow-up. Is much more awake and alert compared to yesterday and is communicating. He is been aggressively resuscitated with IV fluids. 3 L of IV fluid was given and subsequently he was placed on normal saline at the rate of 200 mL an hour and this morning the patient is on D5 half-normal saline. The patient is also on insulin drip which is running at 0.5 units an hour. Blood sugars under better control. Is still elevated. The patient's anion gap has improved and anion gap is down to 8. Nevertheless, the serum bicarb is still low at 14. The patient continues to have leukocytosis. Potassium is better place and is up to 4.2. Magnesium is being replaced, phosphorus is being replaced. Pro-calcitonin to 0.6. Lipase level is down to 4207 and ultrasound the gallbladder shows limited visualization of the common bile duct. No evidence of any hydronephrosis. Gallbladder shows no stones or wall thickening. No other abnormalities noted. On a separate note, further detailed examination of the patient revealed that the patient has deep tissue injury over the right buttocks and an underlying collection. Rule out development of an underlying abscess. Fasting lipid profile is pending. Hemoglobin A1c still pending. On 05/08/2023, the patient is on IV fluids at KVO. Insulin drip has been discontinued yesterday and the patient was started on Levemir insulin 15 units daily and addition to sliding scale coverage. The patient meanwhile has no significant anion gap and a serum bicarb is up to 21. Sodium levels at 136. Potassium levels at 3.5. Morning blood sugar was 218. The patient is tolerating diet. White cell count remains elevated at 20.1. Hemoglobin is 14.5. No abdominal pain. No nausea or emesis. Awaiting surgical consultation regarding the possibility of a deep tissue injury over the right buttocks area. The patient remains on IV Zosyn as an empiric antibiotic coverage. More alert and awake and currently is on room air oxygen. On 05/09/2023, the patient is doing well. The patient on Levemir insulin 15 units and he is also on NovoLog 4 units with meals plus a sliding scale coverage. Blood sugars under adequate control. BUN is at 19 with a creatinine of 0.3. Sodium level is at 135. Anion gap is down to 2. Serum bicarbs of 30. Potassium level needs to be replaced at 2.8. Lipase has dropped down to 543. No nausea or vomiting or abdominal pain is tolerating diet. Awaiting surgical debridement of the sacral wounds. He is afebrile for now. Mental status is back to normal. He is on room air oxygen. 05/10/2023, no new complaints, awaiting surgical debridement of his sacral 1 and the patient is currently on IV Zosyn. He is also on Levemir insulin 14 units and 4 units of NovoLog with meals. The white cell count is at 12.6 with a hemoglobin of 15.4, BUN is 11 with a creatinine of 0.4 and sodium levels is 140. Potassium is to be replaced. Awake and alert and communicating. The patient is seen today 05/11/2023 in follow-up on the regular medical floor. He is awake and alert, oriented. Maintaining good O2 saturations in the 90s on room air. He is going for deep breathing treatment of the left gluteal sacral wound. Wound cultures were positive for E. coli and strep agalactiae group B. He remains on Zosyn. White count 10.6. Hemoglobin 13.8. Sodium 134. Potassium 3.9. Bicarb 31. BUN 17. Creatinine 0.32. Heparin for DVT prophylaxis. The patient is seen today 05/12/2023 in follow-up on the regular medical floor. He did undergo deep treatment of the sacral wound leaning more towards the right perirectal area. Wound was packed with wet-to-dry Kerlix dressing. The wound was measuring 10 x 5 x 4 cm located on the right perianal area. Wound care consultants on board. Infectious disease on board. White count 10.1. Hemoglobin 13.7. Platelets 301. Sodium 139. Potassium 4.1. BUN 12. Creatinine 0.5. Glucose 183. Wound culture was positive for E. coli and strep agalactiae, group B. He is currently on Zosyn. Heparin for DVT prophylaxis. Continued on Levemir and NovoLog sliding scale for tighter blood sugar control. Objective - Vital Signs Vital signs: Vital Signs Temp 97.6 F 05/12/23 07:24 Pulse 88 05/12/23 07:24 Resp 17 05/12/23 07:24 BP 115/62 05/12/23 07:24 Pulse Ox 96 05/12/23 07:24 FiO2 Intake & Output 05/11/23 05/12/23 05/12/23 18:59 06:59 18:59 Intake Total 1350 Output Total 310 Balance 1040 Weight 64 kg Intake: IV 1350 Output: Urine 300 Estimated Blood Loss 10 Other: Voiding Method Urinal Urinal # Voids 2 1 - Exam GENERAL EXAM: Alert, oriented, pleasant 58-year-old male, on room air, comfortable in no apparent distress. HEAD: Normocephalic. EYES: Normal reaction of pupils, equal size. NOSE: Clear with pink turbinates. THROAT: No erythema or exudates. NECK: No masses, no JVD. CHEST: No chest wall deformity. LUNGS: Equal air entry with no crackles, wheeze, rhonchi or dullness. CVS: S1 and S2 normal with no audible murmur, regular rhythm. ABDOMEN: No hepatosplenomegaly, normal bowel sounds, no guarding or rigidity. SPINE: No scoliosis or deformity SKIN: No rashes. Dressing to the right sacral area dry and intact. CENTRAL NERVOUS SYSTEM: No focal deficits, tone is normal in all 4 extremities. EXTREMITIES: There is no peripheral edema. No clubbing, no cyanosis. Peripheral pulses are intact. - Labs CBC & Chem 7: 05/12/23 07:22 05/12/23 07:22 Labs: Abnormal Lab Results - Last 24 Hours (Table) 05/11/23 05/11/23 05/12/23 Range/Units 16:35 20:55 02:22 WBC (4.50-10.00) X 10*3/uL RBC (4.40-5.60) X 10*6/uL Monocytes # (0.20-1.00) X 10*3/uL Creatinine (0.6-1.5) mg/dL BUN/Creatinine Ratio (12.00-20.00) Ratio Glucose (70-110) mg/dL POC Glucose (mg/dL) 304 H 401 H 236 H (70-110) mg/dL 05/12/23 05/12/23 05/12/23 Range/Units 07:22 07:22 11:20 WBC 10.12 H (4.50-10.00) X 10*3/uL RBC 4.35 L (4.40-5.60) X 10*6/uL Monocytes # 1.30 H (0.20-1.00) X 10*3/uL Creatinine 0.5 L (0.6-1.5) mg/dL BUN/Creatinine Ratio 24.80 H (12.00-20.00) Ratio Glucose 55 L (70-110) mg/dL POC Glucose (mg/dL) 183 H (70-110) mg/dL Microbiology - Last 24 Hours (Table) 05/11/23 12:35 Gram Stain - Preliminary Buttock 05/06/23 12:50 Blood Culture - Final Blood 05/06/23 13:05 Blood Culture - Final Blood Assessment and Plan Assessment: Acute diabetic ketoacidosis, recovered and the patient is currently on long- acting insulin with Levemir, 12 units along with NovoLog 4 units with meals Diabetes mellitus type 2, not receiving any insulin therapy for more than a year. The hemoglobin A1c was greater than 18 indicating poor blood sugar control on outpatient basis Altered mentation secondary to above, recovered Hypotension with severe dehydration secondary to above, recovered Severe anion gap metabolic acidosis, recovered Acute hypokalemia, treated Acute hypomagnesemia, treated Acute leukocytosis, likely reactive Deep tissue injury to his right sacral area, if he did undergo electrocautery of necrotic tissue and debridement on 05/11/2023. The wound was packed with wet-to-dry Kerlix dressing. The wound was measuring approximately 10 x 5 x 4 cm complicated on the right perianal area. Acute pancreatitis, could be related to an underlying viral infection as the patient was having symptoms of URI. The lipase level is improving and the ultrasound the gallbladder showed no acute abnormalities. Scattered peripheral groundglass pulmonary infiltrates, highly suggestive of an atypical pneumonia/previous Covid 19 infection. The patient's Covid 19 testing during this current admission was negative and the rest of the viral screen was also negative Plan: The patient was seen and evaluated Labs and medications reviewed Wound care consulted Infectious disease consulted Stable and on room air We will see the patient as needed I have personally seen and examined the patient, performed the documentation and the assessment and plan as written. Number of minutes spent on the visit: 10.
--- NOTE | 2023-05-12 12:33 | P.PN ---
Subjective Progress Note Date: 05/12/23 Principal diagnosis: Sacral abscess and wound Patient is a 58-year-old male who presenting to the hospital about 5 days ago for evaluation of decreased level of consciousness mental status changes also the patient did have a wound to the sacral area that apparently sta rted as a boil status post surgical debridement and deep culture as of 05/12/2023. On today's evaluation that is 05/12/2023, the patient denies any fever or any chills, the patient is breathing comfortably , the patient denies chest pain and denies having any cough , the patient denies nausea vomiting, no abdominal pain or diarrhea , patient denies any worsening pain to the sacral wound area. Patient white count is down to 10.12, creatinine 0.5 , initial culture with E. coli and strep surgical cultures are pending Objective - Vital Signs Vital signs: Vital Signs Temp 97.6 F 05/12/23 07:24 Pulse 88 05/12/23 07:24 Resp 17 05/12/23 07:24 BP 115/62 05/12/23 07:24 Pulse Ox 96 05/12/23 07:24 FiO2 Intake & Output 05/11/23 05/12/23 05/12/23 18:59 06:59 18:59 Intake Total 1350 Output Total 310 Balance 1040 Weight 64 kg Intake: IV 1350 Output: Urine 300 Estimated Blood Loss 10 Other: Voiding Method Urinal Urinal # Voids 2 1 - Exam GENERAL DESCRIPTION: Middle-age male lying in bed in no distress RESPIRATORY SYSTEM: Unlabored breathing , decreased breath sounds at bases HEART: S1 S2 regular rate and rhythm , ABDOMEN: Soft , no tenderness patient did have a large sacral wound was significant slough tissue bone was not palpable EXTREMITIES: No edema feet - Labs CBC & Chem 7: 05/12/23 07:22 05/12/23 07:22 Labs: Abnormal Lab Results - Last 24 Hours (Table) 05/11/23 05/11/23 05/12/23 Range/Units 16:35 20:55 02:22 WBC (4.50-10.00) X 10*3/uL RBC (4.40-5.60) X 10*6/uL Monocytes # (0.20-1.00) X 10*3/uL Creatinine (0.6-1.5) mg/dL BUN/Creatinine Ratio (12.00-20.00) Ratio Glucose (70-110) mg/dL POC Glucose (mg/dL) 304 H 401 H 236 H (70-110) mg/dL 05/12/23 05/12/23 05/12/23 Range/Units 07:22 07:22 11:20 WBC 10.12 H (4.50-10.00) X 10*3/uL RBC 4.35 L (4.40-5.60) X 10*6/uL Monocytes # 1.30 H (0.20-1.00) X 10*3/uL Creatinine 0.5 L (0.6-1.5) mg/dL BUN/Creatinine Ratio 24.80 H (12.00-20.00) Ratio Glucose 55 L (70-110) mg/dL POC Glucose (mg/dL) 183 H (70-110) mg/dL Microbiology - Last 24 Hours (Table) 05/11/23 12:35 Gram Stain - Preliminary Buttock 05/06/23 12:50 Blood Culture - Final Blood 05/06/23 13:05 Blood Culture - Final Blood Assessment and Plan (1) Abscess of sacrum Current Visit: Yes Status: Acute Code(s): M46.28 - OSTEOMYELITIS OF V ERTEBRA, SACRAL AND SACROCOCCYGEAL REGION SNOMED Code(s): 001930488 Plan: 1patient with sacral abscess and nonhealing wound status post surgical debridement and this patient has been hospital for the last 6 days requiring review of his hospital stay in this patient who did have a hypothymia elevated white count with features of sepsis source likely infected sacral ulcer and abscess status post surgical debridement with initial culture positive for E. coli and Streptococcus 2-we will wait for the surgical deep cultures to finalize to determine his discharge antibiotics 3-for now continue with the Zosyn , patient benefit from short course of IV antibiotic on discharge at the bedside multiple questions and concerns were answered Dictation was produced using [employer] dictation software. please excuse any grammatical, word or spelling errors. Time with Patient: Less than 30
--- NOTE | 2023-05-12 12:49 | P.PN ---
Subjective Progress Note Date: 05/12/23 CHIEF COMPLAINT: DKA HISTORY OF PRESENT ILLNESS: Patient is status post debridement of sacral wound. Patient lying in bed comfortably. Infectious disease consulted. Afebrile. WBC 10.12 hgb 13.7 PHYSICAL EXAM: VITAL SIGNS: Reviewed. GENERAL: Well-developed in no acute distress. ABDOMEN: Soft. Nondistended. Nontender. NEUROLOGIC: Alert and oriented. Cranial nerves II through XII grossly intact. ASSESSMENT: 1. Sacral wound status post debridement 2. DKA PLAN: -Dressing to be changed today -Continue local wound care -Continue offloading -Continue antibiotics per infectious disease -Continue glucose management Physician Pig Machine Crane Operator note has been reviewed by physician. Signing provider agrees with the documented findings, assessment, and plan of care. Objective - Vital Signs Vital signs: Vital Signs Temp 97.6 F 05/12/23 07:24 Pulse 88 05/12/23 07:24 Resp 17 05/12/23 07:24 BP 115/62 05/12/23 07:24 Pulse Ox 96 05/12/23 07:24 FiO2 Intake & Output 05/11/23 05/12/23 05/12/23 18:59 06:59 18:59 Intake Total 1350 Output Total 310 Balance 1040 Weight 64 kg Intake: IV 1350 Output: Urine 300 Estimated Blood Loss 10 Other: Voiding Method Urinal Urinal # Voids 2 1 - Labs CBC & Chem 7: 05/12/23 07:22 05/12/23 07:22 Labs: Abnormal Lab Results - Last 24 Hours (Table) 05/11/23 05/11/23 05/12/23 Range/Units 16:35 20:55 02:22 WBC (4.50-10.00) X 10*3/uL RBC (4.40-5.60) X 10*6/uL Monocytes # (0.20-1.00) X 10*3/uL Creatinine (0.6-1.5) mg/dL BUN/Creatinine Ratio (12.00-20.00) Ratio Glucose (70-110) mg/dL POC Glucose (mg/dL) 304 H 401 H 236 H (70-110) mg/dL 05/12/23 05/12/23 05/12/23 Range/Units 07:22 07:22 11:20 WBC 10.12 H (4.50-10.00) X 10*3/uL RBC 4.35 L (4.40-5.60) X 10*6/uL Monocytes # 1.30 H (0.20-1.00) X 10*3/uL Creatinine 0.5 L (0.6-1.5) mg/dL BUN/Creatinine Ratio 24.80 H (12.00-20.00) Ratio Glucose 55 L (70-110) mg/dL POC Glucose (mg/dL) 183 H (70-110) mg/dL Microbiology - Last 24 Hours (Table) 05/11/23 12:35 Gram Stain - Preliminary Buttock 05/06/23 12:50 Blood Culture - Final Blood 05/06/23 13:05 Blood Culture - Final Blood
--- NOTE | 2023-05-12 14:31 | PN ---
PROGRESS NOTE DATE OF SERVICE: 05/12/2023 SUBJECTIVE: This is a 58-year-old gentleman who had a left sacral ulcer, has diabetic ketoacidosis. The patient is noncompliant with medications. Hemoglobin A1c was more than 18. Multiple consultants are following the patient closely. Wound cultures showing E coli and Strep agalactiae. PAST MEDICAL HISTORY: Reviewed. REVIEW OF SYSTEMS: A 14-point review is negative except as mentioned earlier. CURRENT MEDICATIONS: Reviewed include Neurontin, rest of the medication and rest of the chart is also reviewed. PHYSICAL EXAMINATION: VITAL SIGNS: Pulse 80, blood pressure n, and respirations 17. CHEST: Clear to auscultation. ABDOMEN: Soft. The sacral wound is dressed at this time. LABORATORY DATA: WBC 10.2, glucose 193. ASSESSMENT: 1. Left sacral ulcer, status post debridement with E coli and Streptococcus agalactiae. 2. Acute diabetic ketoacidosis present on admission with an ungrafted metabolic acidosis. 3. Sepsis present on admission. 4. Change in mental status. 5. Uncontrolled diabetes type 2 with noncompliance. 6. Acute pancreatitis. 7. CT scan. 8. Multiple medical issues. RECOMMENDATIONS: Recommended to continue current management, continue symptomatic treatment, otherwise continue with IV antibiotics. Monitor blood sugars closely. Closely follow with multiple consultants. DVT prophylaxis. Guarded prognosis. Further recommendations to follow. See orders for details. The patient is on IV Zosyn. MMODL / IJN: [id number] / MTDD
[2023-05-12 17:07] LABS: Glucose,Whole Blood 309 mg/dL (70-110)
[2023-05-12 20:31] LABS: Glucose,Whole Blood 278 mg/dL (70-110)
[2023-05-12] MEDS ORDERED: INSULIN DETEMIR (LEVEMIR) 100 UNIT/ML SYR SQ SCH (21:00)
[2023-05-12 22:25] LABS: Glucose,Whole Blood 248 mg/dL (70-110)
[2023-05-13] MEDS: PIPERACILLIN-TAZOBACTAM 3.375 GM in SODIUM CHLORIDE 0.9% 100 ML IVPB SCH ×2 (00:40→07:05)
[2023-05-13] MEDS: HYDROcodone/APAP 5-325MG 1 EACH TAB PO PRN ×6 (00:40→21:16)
[2023-05-13] MEDS: HEPARIN SODIUM,PORCINE 5,000 UNIT/ML 1 ML VIAL SQ SCH ×4 (00:40→23:50)
[2023-05-13 02:15] LABS: Glucose,Whole Blood 290 mg/dL (70-110)
[2023-05-13] MEDS: INSULIN ASPART (NovoLOG) 100 UNIT/ML VIAL SQ SCH ×8 (02:19→22:24)
[2023-05-13 05:33] LABS: Glucose,Whole Blood 129 mg/dL (70-110)
[2023-05-13] MEDS: GABAPENTIN 300 MG CAP PO SCH ×2 (07:04→22:23)
[2023-05-13] MEDS: PANTOPRAZOLE 40 MG/10 ML VIAL IV SCH (08:27)
[2023-05-13] MEDS ORDERED: bisacodyL 5 MG TABLET.DR PO PRN (08:33)
[2023-05-13 11:30] LABS: INR 0.8 (<1.2); Partial Thromboplastin Time 27.4 sec (22.0-30.0); Prothrombin Time 9.2 sec (9.0-12.0)
[2023-05-13 11:34] LABS: Glucose,Whole Blood 230 mg/dL (70-110)
[2023-05-13] MEDS: INSULIN DETEMIR (LEVEMIR) 100 UNIT/ML SYR SQ SCH ×2 (11:36→22:25)
--- NOTE | 2023-05-13 12:58 | P.PN ---
Subjective Progress Note Date: 05/13/23 Principal diagnosis: Sacral abscess and wound Patient is a 58-year-old male who presenting to the hospital about 5 days ago for evaluation of decreased level of consciousness mental status changes also the patient did have a wound to the sacral area that apparently sta rted as a boil status post surgical debridement and deep culture as of 05/12/2023. On today's evaluation that is 05/13/2023, the patient remains to be afebrile , the patient is breathing comfortably , the patient denies chest pain or cough , the patient denies nausea vomiting, no abdominal pain or diarrhea , patient pain to the sacral wound area is currently controlled. Patient white count is down to 10.12, creatinine 0.5 as of yesterday , initial culture with E. coli and strep surgical cultures are growing Streptococcus Objective - Vital Signs Vital signs: Vital Signs Temp 97.4 F L 05/13/23 07:20 Pulse 94 05/13/23 07:20 Resp 17 05/13/23 07:20 BP 130/74 05/13/23 07:20 Pulse Ox 99 05/13/23 07:20 FiO2 Intake & Output 05/12/23 05/13/23 05/13/23 18:59 06:59 18:59 Intake Total 1080 Balance 1080 Intake: Oral 1080 Other: Voiding Method Urinal # Voids 2 0 - Exam GENERAL DESCRIPTION: Middle-age male lying in bed in no distress RESPIRATORY SYSTEM: Unlabored breathing , decreased breath sounds at bases HEART: S1 S2 regular rate and rhythm , ABDOMEN: Soft , no tenderness EXTREMITIES: No edema feet - Labs CBC & Chem 7: 05/12/23 07:22 05/12/23 07:22 Labs: Abnormal Lab Results - Last 24 Hours (Table) 05/12/23 05/12/23 05/12/23 Range/Units 07:22 07:22 11:20 WBC 10.12 H (4.50-10.00) X 10*3/uL RBC 4.35 L (4.40-5.60) X 10*6/uL Monocytes # 1.30 H (0.20-1.00) X 10*3/uL Creatinine 0.5 L (0.6-1.5) mg/dL BUN/Creatinine Ratio 24.80 H (12.00-20.00) Ratio Glucose 55 L (70-110) mg/dL POC Glucose (mg/dL) 183 H (70-110) mg/dL 05/12/23 05/12/23 05/12/23 Range/Units 17:04 20:30 22:23 WBC (4.50-10.00) X 10*3/uL RBC (4.40-5.60) X 10*6/uL Monocytes # (0.20-1.00) X 10*3/uL Creatinine (0.6-1.5) mg/dL BUN/Creatinine Ratio (12.00-20.00) Ratio Glucose (70-110) mg/dL POC Glucose (mg/dL) 309 H 278 H 248 H (70-110) mg/dL 05/13/23 05/13/23 Range/Units 02:14 05:32 WBC (4.50-10.00) X 10*3/uL RBC (4.40-5.60) X 10*6/uL Monocytes # (0.20-1.00) X 10*3/uL Creatinine (0.6-1.5) mg/dL BUN/Creatinine Ratio (12.00-20.00) Ratio Glucose (70-110) mg/dL POC Glucose (mg/dL) 290 H 129 H (70-110) mg/dL Microbiology - Last 24 Hours (Table) 05/11/23 12:35 Gram Stain - Preliminary Buttock Wound Culture - Preliminary Strep agalactiae - (group b) Assessment and Plan (1) Abscess of sacrum Current Visit: Yes Status: Acute Code(s): M46.28 - OSTEOMYELITIS OF VE RTEBRA, SACRAL AND SACROCOCCYGEAL REGION SNOMED Code(s): 591371426 Plan: 1patient with sacral abscess and nonhealing wound status post surgical debridement and this patient has been hospital for the last 6 days requiring review of his hospital stay in this patient who did have a hypothymia elevated white count with features of sepsis source likely infected sacral ulcer and abscess status post surgical debridement with initial culture positive for E. coli and Streptococcus 2- surgical deep cultures is growing Streptococcus 3patient with a PICC line and antibiotic will be switched over to Rocephin 2 g daily for 3 weeks that was the patient follow-up continue local wound care per his wound care physician at the bedside multiple questions and concerns were answered Dictation was produced using [employer] software. please excuse any grammatical, word or spelling errors. Time with Patient: Less than 30
--- NOTE | 2023-05-13 13:43 | P.PN ---
Subjective Progress Note Date: 05/13/23 CHIEF COMPLAINT: DKA HISTORY OF PRESENT ILLNESS: Patient is status post debridement of sacral wound. Patient lying in bed comfortably. Infectious disease consulted. Afebrile. No new labs. Pain controlled. PHYSICAL EXAM: VITAL SIGNS: Reviewed. GENERAL: Well-developed in no acute distress. ABDOMEN: Soft. Nondistended. Nontender. NEUROLOGIC: Alert and oriented. Cranial nerves II through XII grossly intact. Skin: Dressing over the sacral ulcers clean dry and intact ASSESSMENT: 1. Sacral wound status post debridement 2. DKA PLAN: -Discharge antibiotics per infectious disease -Continue local wound care -Continue offloading -Continue antibiotics per infectious disease Physician Sheriffs Detective note has been reviewed by physician. Signing provider agrees with the documented findings, assessment, and plan of care. Objective - Vital Signs Vital signs: Vital Signs Temp 97.4 F L 05/13/23 07:20 Pulse 94 05/13/23 07:20 Resp 17 05/13/23 07:20 BP 130/74 05/13/23 07:20 Pulse Ox 99 05/13/23 07:20 FiO2 Intake & Output 05/12/23 05/13/23 05/13/23 18:59 06:59 18:59 Intake Total 1080 Balance 1080 Intake: Oral 1080 Other: Voiding Method Urinal # Voids 2 0 - Labs CBC & Chem 7: 05/12/23 07:22 05/12/23 07:22 Labs: Abnormal Lab Results - Last 24 Hours (Table) 05/12/23 05/12/23 05/12/23 Range/Units 17:04 20:30 22:23 POC Glucose (mg/dL) 309 H 278 H 248 H (70-110) mg/dL 05/13/23 05/13/23 05/13/23 Range/Units 02:14 05:32 11:32 POC Glucose (mg/dL) 290 H 129 H 230 H (70-110) mg/dL Microbiology - Last 24 Hours (Table) 05/11/23 12:35 Gram Stain - Preliminary Buttock Wound Culture - Preliminary Strep agalactiae - (group b)
--- NOTE | 2023-05-13 15:50 | IR ---
PICC LINE PLACEMENT: HISTORY: Infection requiring long-term antibiotic therapy PROCEDURE: Ultrasound and fluoroscopic guidance of PICC line placement. COMPLICATIONS: None ANESTHESIA: 1. 1% Lidocaine locally. FINDINGS/TECHNIQUE: The procedure was explained to the patient. The risks, complications, benefits and alternatives were discussed and any questions were answered. Informed consent was obtained. The patient was placed supine on the fluoroscopic table and prepped and draped in the usual sterile fash ion. Utilizing a 21 gauge needle and sonographic and fluoroscopic guidance, access in the left basi lic vein was achieved and there is placement of a 0.018 guidewire. The vein is patent. A 4-F sheath was placed over the guidewire. The guidewire and dilator were removed and a 4-F. PICC line was plac ed through the sheath with the tip at the level of the SVC. The sheath was removed, the catheter was flushed and sutured into position. The patient was stable throughout the procedure and remained sta ble upon discharge from the Department of Radiology. The vein puncture was patent under ultrasound. A walsh scale image was obtained to document patency of the vein punctured. All elements of the maximal barrier technique were utilized. FLUOROSCOPY TIME: DAP 0.166Gy cm2 IMPRESSION: Successful PICC line placement under ultrasound and fluoroscopic guidance.
[2023-05-13 16:59] LABS: Glucose,Whole Blood 166 mg/dL (70-110)
--- NOTE | 2023-05-13 17:18 | CDI ---
Documentation Clarification Form Date: 05/13/2023 05:04:38 PM From: Krystle Ma RN CCDS Phone: [phone] Admit Date: 05/06/2023 03:01:00 PM Patient Name: Ayden Dacosta Visit Number: [id number] Discharge Date: ATTENTION: The Clinical Documentation Specialists (CDI) and [facility] Coding Staff appreciate your assistance in clarifying documentation. Please respond to the clarification below the line at the bottom and electronically sign. The CDI & [facility] Coding staff will review the response and follow-up if needed. Please note: Queries are made part of the Legal Health Record. If you have any questions, please contact the author of this message via ITS. Dr. Von Bansal A debridement is documented 05/11, Procedure note. Additional clarification regarding the procedure is requested. History/Risk Factors: 58-year-old male presented to the hospital with generalized weakness and decreased responsiveness for one week. Medical History: DM2, Decubitus ulcer, perianal boils, and DKA. 05/06, ED note. Clinical Indicators: 05/11 Debridement of sacral ulcer Patient had a decubitus ulcer located in the right perirectal area there is a tunnel that connected another decubitus ulcer. Necrotic skin was divided using sharp dissection with a 15 blade and using electrocautery. The necrotic tissue containing skin subcutaneous fat muscle was debrided complete. The wound measured approximately 10 5 5 x 4cm on the right perianal area. Treatment: Dissection to the muscle was debrided. Please clarify the type of procedure performed: [ xx] Excisional debridement (the removal of necrotic, devitalized tissue or slough by means of cutting away of tissue) [ ] Non-excisional debridement (the removal of necrotic, devitalized tissue or slough by means of flushing, brushing, or washing. (Irrigation) [ ] Other; please specify [ ] Unable to determine Five elements required for accurate and compliant documentation of a debridement: Technique used (e.g., excisional, excised, cutting, brushing, jet lavage etc.) Instrument(s) used (e.g., scalpel, curette, etc.) Nature of the tissue removed (e.g., necrotic, devitalized tissues, non-viable tissue, etc.) Appearance and size of the wound (e.g., down to fresh bleeding tissue, 7cm x 10cm, etc.) Depth of the debridement* (e.g., skin, subcutaneous tissue, fascia, muscle, bone, etc.) (Template Last Revised: October 2020) MTDD
[2023-05-13 20:29] LABS: Glucose,Whole Blood 225 mg/dL (70-110)
--- NOTE | 2023-05-13 22:28 | PN ---
PROGRESS NOTE DATE OF SERVICE: 05/13/2023 SUBJECTIVE: This is a 58-year-old gentleman who was admitted with significant gluteal infection, also had sepsis. The patient had uncontrolled diabetes mellitus and blood sugars being adjusted. No chest pain, no palpitation. OBJECTIVE: VITAL SIGNS: Pulse 94, blood pressure 130/70, respirations 17. CHEST: Clear to auscultation. CARDIOVASCULAR: S1, S2. ABDOMEN: Soft. NERVOUS SYSTEM: No focal deficits. LABORATORY DATA: Reviewed. ASSESSMENT: 1. Left sacral ulcer, status post debridement with E coli and Strep agalactiae. 2. Acute diabetic ketosis present on admission with metabolic acidosis. 3. Sepsis present on admission. 4. Change in mental status present on admission. 5. Uncontrolled diabetes mellitus type 2 with noncompliance, hemoglobin A1c more than 18. 6. Acute pancreatitis, present on admission. 7. Multiple medical issues. RECOMMENDATIONS: Recommended to continue current management, continue symptomatic treatment, otherwise continue empiric antibiotics. We will adjust dose of insulin. See orders for further details. Monitor blood sugars closely. Guarded prognosis. Further recommendations to follow. MMODL / IJN: [id number] /
[2023-05-14] MEDS: HYDROcodone/APAP 5-325MG 1 EACH TAB PO PRN ×5 (01:23→19:49)
[2023-05-14 02:16] LABS: Glucose,Whole Blood 176 mg/dL (70-110)
[2023-05-14] MEDS: INSULIN ASPART (NovoLOG) 100 UNIT/ML VIAL SQ SCH ×5 (02:26→20:45)
[2023-05-14 06:07] LABS: Glucose,Whole Blood 66 mg/dL (70-110)
[2023-05-14 06:12] LABS: Glucose,Whole Blood 63 mg/dL (70-110)
[2023-05-14 06:27] LABS: Glucose,Whole Blood 105 mg/dL (70-110)
[2023-05-14] MEDS: GABAPENTIN 300 MG CAP PO SCH ×2 (06:43→20:45)
[2023-05-14] MEDS: INSULIN DETEMIR (LEVEMIR) 100 UNIT/ML SYR SQ SCH ×2 (06:43→20:44)
[2023-05-14] MEDS: HEPARIN SODIUM,PORCINE 5,000 UNIT/ML 1 ML VIAL SQ SCH ×2 (06:43→15:40)
[2023-05-14] MEDS: metFORMIN 500 MG TAB PO SCH ×2 (06:44→17:21)
[2023-05-14] MEDS ORDERED: INSULIN ASPART (NovoLOG) 100 UNIT/ML VIAL SQ SCH (07:30)
[2023-05-14] MEDS: PANTOPRAZOLE 40 MG/10 ML VIAL IV SCH (08:17)
[2023-05-14 11:13] LABS: Blood Urea Nitrogen 14.5 mg/dL (9.0-27.0); Calcium 8.9 mg/dL (8.7-10.3); Carbon Dioxide 26.4 mmol/L (21.6-31.8); Chloride 98 mmol/L (96-109); Glucose 59 mg/dL (70-110); Potassium 4.1 mmol/L (3.5-5.5); Sodium 138 mmol/L (135-145)
[2023-05-14 11:27] LABS: Basophils # (A) 0.04 X 10*3/uL (0.00-0.10); Basophils % (A) 0.3 %; Eosinophils # (A) 0.05 X 10*3/uL (0.04-0.35); Eosinophils % (A) 0.4 %; HCT 39.8 % (39.6-50.0); HGB 13.8 d/dL (13.0-17.0); Lymphocytes % (A) 18.1 %; MCH 31.7 pg (27.0-32.0); MCHC 34.7 d/dL (32.0-37.0); MCV 91.5 FL (80.0-97.0); Mean Platelet Volume 8.7 FL (9.5-12.2); Monocytes % (A) 11.2 %; NRBC Per 100 WBC 0 X 10*3/uL (0.00-0.01); Neutrophils # (A) 8.03 X 10*3/uL (1.80-7.70); Neutrophils % (A) 69.1 %; Platelet Count 420 X 10*3/uL (140-440); RBC 4.35 X 10*6/uL (4.40-5.60); WBC 11.63 X 10*3/uL (4.50-10.00)
[2023-05-14 11:32] LABS: Glucose,Whole Blood 275 mg/dL (70-110)
--- NOTE | 2023-05-14 11:47 | P.PN ---
Subjective Progress Note Date: 05/14/23 CHIEF COMPLAINT: DKA HISTORY OF PRESENT ILLNESS: Patient is status post debridement of sacral wound. He reports his pain is controlled. He thinks he is being discharged today. He's been staying off the wound. He did have a BM. Afebrile. WBC 10-11.6 PHYSICAL EXAM: VITAL SIGNS: Reviewed. GENERAL: Well-developed in no acute distress. Skin: Dressing over the sacral ulcers clean dry and intact ASSESSMENT: 1. Sacral wound status post debridement 2. DKA PLAN: -Patient may need a diverting colostomy since the wound is close to the anus -Discharge antibiotics per infectious disease -Continue local wound care -Continue offloading Physician Dietician note has been reviewed by physician. Signing provider agrees with the documented findings, assessment, and plan of care. Objective - Vital Signs Vital signs: Vital Signs Temp 98.1 F 05/14/23 07:23 Pulse 108 H 05/14/23 07:40 Resp 17 05/14/23 07:40 BP 126/70 05/14/23 07:23 Pulse Ox 100 05/14/23 07:23 FiO2 Intake & Output 05/13/23 05/14/23 05/14/23 18:59 06:59 18:59 Intake Total 100 Balance 100 Intake: IV 100 Piperacillin-Tazobactam 3 100 .375 gm In Sodium Chloride 0.9% 100 ml @ 25 mls/hr IVPB Q8HR [facility] Rx# :[id number] Other: Voiding Method Urinal # Voids 1 # Bowel Movements 1 - Labs CBC & Chem 7: 05/14/23 06:02 05/14/23 06:02 Labs: Abnormal Lab Results - Last 24 Hours (Table) 05/13/23 05/13/23 05/13/23 Range/Units 13:10 13:10 16:58 WBC (4.50-10.00) X 10*3/uL RBC (4.40-5.60) X 10*6/uL MPV (9.5-12.2) FL Neutrophils # (1.80-7.70) X 10*3/uL Monocytes # (0.20-1.00) X 10*3/uL ESR 82 H (0-20) mm/Hr Anion Gap (4.00-12.00) mmol/L Creatinine (0.6-1.5) mg/dL BUN/Creatinine Ratio (12.00-20.00) Ratio Glucose (70-110) mg/dL POC Glucose (mg/dL) 166 H (70-110) mg/dL C-Reactive Protein 5.2 H (<1.0) mg/dL 05/13/23 05/14/23 05/14/23 Range/Units 20:27 02:14 05:57 WBC (4.50-10.00) X 10*3/uL RBC (4.40-5.60) X 10*6/uL MPV (9.5-12.2) FL Neutrophils # (1.80-7.70) X 10*3/uL Monocytes # (0.20-1.00) X 10*3/uL ESR (0-20) mm/Hr Anion Gap (4.00-12.00) mmol/L Creatinine (0.6-1.5) mg/dL BUN/Creatinine Ratio (12.00-20.00) Ratio Glucose (70-110) mg/dL POC Glucose (mg/dL) 225 H 176 H 66 L (70-110) mg/dL C-Reactive Protein (<1.0) mg/dL 05/14/23 05/14/23 05/14/23 Range/Units 06:02 06:02 06:10 WBC 11.63 H (4.50-10.00) X 10*3/uL RBC 4.35 L (4.40-5.60) X 10*6/uL MPV 8.7 L (9.5-12.2) FL Neutrophils # 8.03 H (1.80-7.70) X 10*3/uL Monocytes # 1.30 H (0.20-1.00) X 10*3/uL ESR (0-20) mm/Hr Anion Gap 13.60 H (4.00-12.00) mmol/L Creatinine 0.5 L (0.6-1.5) mg/dL BUN/Creatinine Ratio 29.00 H (12.00-20.00) Ratio Glucose 59 L (70-110) mg/dL POC Glucose (mg/dL) 63 L (70-110) mg/dL C-Reactive Protein (<1.0) mg/dL 05/14/23 Range/Units 11:20 WBC (4.50-10.00) X 10*3/uL RBC (4.40-5.60) X 10*6/uL MPV (9.5-12.2) FL Neutrophils # (1.80-7.70) X 10*3/uL Monocytes # (0.20-1.00) X 10*3/uL ESR (0-20) mm/Hr Anion Gap (4.00-12.00) mmol/L Creatinine (0.6-1.5) mg/dL BUN/Creatinine Ratio (12.00-20.00) Ratio Glucose (70-110) mg/dL POC Glucose (mg/dL) 275 H (70-110) mg/dL C-Reactive Protein (<1.0) mg/dL Microbiology - Last 24 Hours (Table) 05/11/23 12:35 Gram Stain - Final Buttock Wound Culture - Final Strep agalactiae - (group b) Ladi albicans
--- NOTE | 2023-05-14 12:49 | P.PN ---
Subjective Progress Note Date: 05/14/23 Principal diagnosis: Sacral abscess and wound Patient is a 58-year-old male who presenting to the hospital about 5 days ago for evaluation of decreased level of consciousness mental status changes also the patient did have a wound to the sacral area that apparently sta rted as a boil status post surgical debridement and deep culture as of 05/12/2023. On today's evaluation that is 05/14/2023, the patient continues to be afebrile , the patient is breathing comfortably , the patient denies nausea vomiting, no abdominal pain or diarrhea , denies any chest pain or cough, , patient pain to the sacral wound area is currently controlled. Patient white count is 11.63, creatinine 0.5 , initial culture with E. coli and strep surgical cultures are growing Streptococcus Objective - Vital Signs Vital signs: Vital Signs Temp 98.1 F 05/14/23 07:23 Pulse 108 H 05/14/23 07:40 Resp 17 05/14/23 07:40 BP 126/70 05/14/23 07:23 Pulse Ox 100 05/14/23 07:23 FiO2 Intake & Output 05/13/23 05/14/23 05/14/23 18:59 06:59 18:59 Intake Total 100 Balance 100 Intake: IV 100 Piperacillin-Tazobactam 3 100 .375 gm In Sodium Chloride 0.9% 100 ml @ 25 mls/hr IVPB Q8HR [facility] Rx# :[id number] Other: Voiding Method Urinal # Voids 1 # Bowel Movements 1 - Exam GENERAL DESCRIPTION: Middle-age male lying in bed in no distress RESPIRATORY SYSTEM: Unlabored breathing , decreased breath sounds at bases HEART: S1 S2 regular rate and rhythm , ABDOMEN: Soft , no tenderness , sacral wound with some contamination from the stool surrounding redness improved EXTREMITIES: No edema feet - Labs CBC & Chem 7: 05/14/23 06:02 05/14/23 06:02 Labs: Abnormal Lab Results - Last 24 Hours (Table) 05/13/23 05/13/23 05/13/23 Range/Units 13:10 13:10 16:58 WBC (4.50-10.00) X 10*3/uL RBC (4.40-5.60) X 10*6/uL MPV (9.5-12.2) FL Neutrophils # (1.80-7.70) X 10*3/uL Monocytes # (0.20-1.00) X 10*3/uL ESR 82 H (0-20) mm/Hr Anion Gap (4.00-12.00) mmol/L Creatinine (0.6-1.5) mg/dL BUN/Creatinine Ratio (12.00-20.00) Ratio Glucose (70-110) mg/dL POC Glucose (mg/dL) 166 H (70-110) mg/dL C-Reactive Protein 5.2 H (<1.0) mg/dL 05/13/23 05/14/23 05/14/23 Range/Units 20:27 02:14 05:57 WBC (4.50-10.00) X 10*3/uL RBC (4.40-5.60) X 10*6/uL MPV (9.5-12.2) FL Neutrophils # (1.80-7.70) X 10*3/uL Monocytes # (0.20-1.00) X 10*3/uL ESR (0-20) mm/Hr Anion Gap (4.00-12.00) mmol/L Creatinine (0.6-1.5) mg/dL BUN/Creatinine Ratio (12.00-20.00) Ratio Glucose (70-110) mg/dL POC Glucose (mg/dL) 225 H 176 H 66 L (70-110) mg/dL C-Reactive Protein (<1.0) mg/dL 05/14/23 05/14/23 05/14/23 Range/Units 06:02 06:02 06:10 WBC 11.63 H (4.50-10.00) X 10*3/uL RBC 4.35 L (4.40-5.60) X 10*6/uL MPV 8.7 L (9.5-12.2) FL Neutrophils # 8.03 H (1.80-7.70) X 10*3/uL Monocytes # 1.30 H (0.20-1.00) X 10*3/uL ESR (0-20) mm/Hr Anion Gap 13.60 H (4.00-12.00) mmol/L Creatinine 0.5 L (0.6-1.5) mg/dL BUN/Creatinine Ratio 29.00 H (12.00-20.00) Ratio Glucose 59 L (70-110) mg/dL POC Glucose (mg/dL) 63 L (70-110) mg/dL C-Reactive Protein (<1.0) mg/dL 05/14/23 Range/Units 11:20 WBC (4.50-10.00) X 10*3/uL RBC (4.40-5.60) X 10*6/uL MPV (9.5-12.2) FL Neutrophils # (1.80-7.70) X 10*3/uL Monocytes # (0.20-1.00) X 10*3/uL ESR (0-20) mm/Hr Anion Gap (4.00-12.00) mmol/L Creatinine (0.6-1.5) mg/dL BUN/Creatinine Ratio (12.00-20.00) Ratio Glucose (70-110) mg/dL POC Glucose (mg/dL) 275 H (70-110) mg/dL C-Reactive Protein (<1.0) mg/dL Microbiology - Last 24 Hours (Table) 05/11/23 12:35 Gram Stain - Final Buttock Wound Culture - Final Strep agalactiae - (group b) Ladi albicans Assessment and Plan (1) Abscess of sacrum Current Visit: Yes Status: Acute Code(s): M46.28 - OSTEOMYELITIS OF VERTEBRA, SACRAL AND SACROCOCCYGEAL REGION SNOMED Code(s): 464146502 Plan: 1patient with sacral abscess and nonhealing wound status post surgical debridement and this patient has been hospital for the last 6 days requiring review of his hospital stay in this patient who did have a hypothymia elevated white count with features of sepsis source likely infected sacral ulcer and abscess status post surgical debridement with initial culture positive for E. coli and Streptococcus 2- surgical deep cultures is growing Streptococcus 3patient did got PICC line patient to continue with the Rocephin 2 g daily with weekly monitoring of his blood work local wound care to continue per wound care at the bedside questions were answered Dictation was produced using [employer] software. please excuse any grammatical, word or spelling errors. Time with Patient: Less than 30
--- NOTE | 2023-05-14 14:10 | PN ---
PROGRESS NOTE DATE OF SERVICE: 05/14/2023 SUBJECTIVE: This is a 58-year-old gentleman who was admitted with left sacral ulcer, had acute diabetic ketoacidosis present on admission. The patient had very brittle diabetes mellitus. OBJECTIVE: VITAL SIGNS: Pulse is 108, blood pressure 126/70, respirations 17. CHEST: Clear to auscultation. CARDIOVASCULAR: S1, S2. ABDOMEN: Soft. NERVOUS SYSTEM: Nonfocal. RECTAL: Gluteal abscess present. LABORATORY DATA: Noted. ASSESSMENT: 1. Left sacral ulcer, status post debridement with E coli and strep agalactiae. 2. Acute diabetic ketoacidosis present on admission with metabolic acidosis. 3. Sepsis present on admission. 4. Change in mental status, present on admission. 5. Uncontrolled diabetes mellitus type 2 with noncompliance. Hemoglobin A1c more than 18. 6. Acute pancreatitis, present on admission. 7. Multiple medical issues. RECOMMENDATIONS: Recommend to continue current management and continue symptomatic treatment. Continue with antibiotics. Otherwise, a detailed discussion with family. Adjust the insulin further. Possible discharge in the next 24 hours. Further recommendations to follow. MMODL / IJN: [id number] /
[2023-05-14 16:36] LABS: Glucose,Whole Blood 275 mg/dL (70-110)
[2023-05-14 20:23] LABS: Glucose,Whole Blood 312 mg/dL (70-110)
[2023-05-15] MEDS: HYDROcodone/APAP 5-325MG 1 EACH TAB PO PRN ×4 (00:13→14:39)
[2023-05-15] MEDS: HEPARIN SODIUM,PORCINE 5,000 UNIT/ML 1 ML VIAL SQ SCH ×2 (00:14→08:24)
[2023-05-15 01:40] LABS: Glucose,Whole Blood 268 mg/dL (70-110)
[2023-05-15 01:57] VITALS: TEMP 97.7
[2023-05-15] MEDS: INSULIN ASPART (NovoLOG) 100 UNIT/ML VIAL SQ SCH ×3 (02:53→11:34)
[2023-05-15 06:19] LABS: Glucose,Whole Blood 199 mg/dL (70-110)
[2023-05-15] MEDS: INSULIN DETEMIR (LEVEMIR) 100 UNIT/ML SYR SQ SCH (06:53)
[2023-05-15] MEDS: metFORMIN 500 MG TAB PO SCH (06:53)
[2023-05-15] MEDS: GABAPENTIN 300 MG CAP PO SCH (08:24)
[2023-05-15] MEDS: PANTOPRAZOLE 40 MG/10 ML VIAL IV SCH (08:24)
[2023-05-15 08:40] VITALS: BP 110/68; PULSE 89; RESP 14
[2023-05-15 11:19] LABS: Glucose,Whole Blood 328 mg/dL (70-110)
--- NOTE | 2023-05-15 12:46 | P.PN ---
Subjective Progress Note Date: 05/15/23 Principal diagnosis: Sacral abscess and wound Patient is a 58-year-old male who presenting to the hospital about 5 days ago for evaluation of decreased level of consciousness mental status changes also the patient did have a wound to the sacral area that apparently sta rted as a boil status post surgical debridement and deep culture as of 05/12/2023. On today's evaluation that is 05/15/2023, the patient denies any fever or any chills , the patient is breathing comfortably on room air , the patient denies chest pain shortness of breath or cough, no nausea or vomiting, no abdominal pain or diarrhea , the patient pain to the sacral wound area has decreased in intensity. Patient white count is 11.63, creatinine 0.5 as of 05/14/2023 , initial culture with E. coli and strep surgical cultures are growing Streptococcus Objective - Vital Signs Vital signs: Vital Signs Temp 97.7 F 05/15/23 07:03 Pulse 89 05/15/23 07:03 Resp 14 05/15/23 07:03 BP 110/68 05/15/23 07:03 Pulse Ox 97 05/15/23 07:03 FiO2 Intake & Output 05/14/23 05/15/23 05/15/23 18:59 06:59 18:59 Intake Total 1080 480 Balance 1080 480 Intake: IV 240 normal saline 240 Oral 1080 240 Other: Voiding Method Urinal # Voids 3 1 - Exam GENERAL DESCRIPTION: Middle-age male lying in bed in no distress RESPIRATORY SYSTEM: Unlabored breathing , decreased breath sounds at bases HEART: S1 S2 regular rate and rhythm , ABDOMEN: Soft , no tenderness , sacral wound with some contamination from the stool surrounding redness improved EXTREMITIES: No edema feet - Labs CBC & Chem 7: 05/14/23 06:02 05/14/23 06:02 Labs: Abnormal Lab Results - Last 24 Hours (Table) 05/14/23 05/14/23 05/15/23 Range/Units 16:34 20:20 01:34 POC Glucose (mg/dL) 275 H 312 H 268 H (70-110) mg/dL 05/15/23 05/15/23 Range/Units 06:15 11:17 POC Glucose (mg/dL) 199 H 328 H (70-110) mg/dL Assessment and Plan (1) Abscess of sacrum Current Visit: Yes Status: Acute Code(s): M46.28 - OSTEOMYELITIS OF VERTEBRA, SACRAL AND SACROCOCCYGEAL REGION SNOMED Code(s): 199139417 Plan: 1patient with sacral abscess and nonhealing wound status post surgical debridement and this patient has been hospital for the last 6 days requiring review of his hospital stay in this patient who did have a hypothymia elevated white count with features of sepsis source likely infected sacral ulcer and a bscess status post surgical debridement with initial culture positive for E. coli and Streptococcus 2- surgical deep cultures is growing Streptococcus 3patient did got PICC line, plan is to continue with the Rocephin 2 g daily 3 weeks on discharge with weekly monitoring of his blood work local wound care to continue per wound care And close Outpatient follow-up, both and the patient aware if no significant improvement in the next 2-3 weeks he may need a diverting colostomy to help heal this wound Dictation was produced using [employer] dictation software. please excuse any grammatical, word or spelling errors. Time with Patient: Less than 30
--- NOTE | 2023-05-15 15:53 | P.PN ---
Subjective Progress Note Date: 05/15/23 CHIEF COMPLAINT: DKA HISTORY OF PRESENT ILLNESS: Patient is status post debridement of sacral wound. He reports his pain is controlled. Wound dressing changed today and yesterday. Afebrile. PHYSICAL EXAM: VITAL SIGNS: Reviewed. GENERAL: Well-developed in no acute distress. Skin: Dressing removed from sacral wound. Wound bed deep red with some drainage and slough noted. Mild erythema around the edges ASSESSMENT: 1. Sacral wound status post debridement 2. DKA PLAN: -Patient can be discharged from surgical service -Patient may need a diverting colostomy since the wound is close to the anus at some point. At this time patient wants to try treatment with antibiotics and local wound care first. -Discharge antibiotics per infectious disease -Continue local wound care -Continue offloading Physician Automotive Maintenance Technician note has been reviewed by physician. Signing provider agrees with the documented findings, assessment, and plan of care. Objective - Vital Signs Vital signs: Vital Signs Temp 97.7 F 05/15/23 07:03 Pulse 89 05/15/23 07:03 Resp 14 05/15/23 07:03 BP 110/68 05/15/23 07:03 Pulse Ox 97 05/15/23 07:03 FiO2 Intake & Output 05/14/23 05/15/23 05/15/23 18:59 06:59 18:59 Intake Total 1080 480 Balance 1080 480 Weight 64 kg Intake: IV 240 normal saline 240 Oral 1080 240 Other: Voiding Method Urinal # Voids 3 1 - Labs CBC & Chem 7: 05/14/23 06:02 05/14/23 06:02 Labs: Abnormal Lab Results - Last 24 Hours (Table) 05/14/23 05/14/23 05/15/23 Range/Units 16:34 20:20 01:34 POC Glucose (mg/dL) 275 H 312 H 268 H (70-110) mg/dL 05/15/23 05/15/23 Range/Units 06:15 11:17 POC Glucose (mg/dL) 199 H 328 H (70-110) mg/dL
--- NOTE | 2023-05-18 12:09 | P.DS ---
Providers Date of admission: 05/06/23 15:01 Expected date of discharge: 05/15/23 Attending physician: Oumar Mata Consults: 05/06/23 14:59 Consult Physician Stat Consulting Provider: Sadie Mendoza Consult Reason/Comments: Critical care management, ICU care Do you want consulting provider notified?: Already Contacted 05/07/23 14:21 Consult Physician Routine Consulting Provider: Von Bansal Consult Reason/Comments: wound, possible abscess Do you want consulting provider notified?: Already Contacted 05/11/23 15:02 Consult Physician Routine Consulting Provider: Byron Olmos Consult Reason/Comments: sacral abscess Do you want consulting provider notified?: Yes Primary care physician: Stated None Hospital Course: Final diagnosis Left sacral ulcer, status post debridement with E. coli and strep agalactiae Acute diabetic ketoacidosis, present on admission with metabolic acidosis, resolved Sepsis, present on admission secondary to DKA and left sacral ulcer Change in mental status, present on admission secondary to metabolic acidosis, resolved Diabetes mellitus type 2, uncontrolled with hyperglycemia and noncompliance. Hemoglobin A1c over 18 Acute pancreatitis, present on admission, improved GI prophylaxis DVT prophylaxis Full code Discharge disposition Patient is being discharged in a stable condition with guarded prognosis to home. Patient will follow-up with Dr. Almanza in the outpatient setting upon discharge. Patient is to continue with IV antibiotics per ID recommendations and close outpatient follow-up with wound care center along with infectious disease as scheduled. Total time taken is greater than 35 minutes. Hospital course This is a 58-year-old male who was recently admitted with acute DKA being closely monitored on protocol. Sugars improved and also found to have a left sacral ulcer that was debrided with general surgery growing E. coli and strep with infectious disease following. Patient received a PICC line and will be going home on IV antibiotics along with wound care and close outpatient follow- up. Patient with extremely uncontrolled diabetes will continue on sliding scale along with pre-meal and long acting and recommend close outpatient follow-up to establish with a primary care provider. Patient will have continued wound care and follow-up with infectious disease and general surgery in one week. Patient has been cleared for discharge. Please refer to other consultation notes for further HPI. Currently no reports of chest pain, shortness of breath, or palpitations. Patient is afebrile. No reports of nausea or vomiting and patient is tolerating diet. Patient will be discharged home today. Physical exam: Gen: This is a 58-year-old male who is awake, alert and oriented 3, well- developed, thin built, elderly appearing HEENT: Head is atraumatic, normocephalic. Pupils equal, round. Sclerae is anicteric. NECK: Supple. No JVD. No lymphadenopathy. No thyromegaly. LUNGS: Clear to auscultation. No wheezes or rhonchi. No intercostal retractions. HEART: Regular rate and rhythm. No murmur. ABDOMEN: Soft. Bowel sounds are present. No masses. No tenderness. EXTREMITIES: No pedal edema. No calf tenderness. NEUROLOGICAL: Patient is awake, alert and oriented x3. Cranial nerves 2 through 12 are grossly intact. Please refer to medication reconciliation sheet for a list of medications. The impression and plan of care has been dictated by Yisel Lin, Nurse Practitioner as directed. Dr. Myron MD I have performed a history and examination and MDM of this patient, discussed the same with the dictator, and agree with the dictator's assessment and plan as written ,documented as a scribe. Based on total visit time, I have performed more than 50% of the visit. Patient Condition at Discharge: Stable Plan - Discharge Summary Discharge Rx Participant: No New Discharge Prescriptions: New Gabapentin [Neurontin] 300 mg PO BID #6 cap INSULIN ASPART (NovoLOG) [NovoLOG (formulary)] 6 unit SQ [id number] 30 Days #6 each cefTRIAXone [Rocephin] 2,000 mg IVP Q24HR #21 each metFORMIN HCL [Glucophage] 500 mg PO BID-W/MEALS 30 Days #60 tab Insulin Detemir (Levemir) [Levemir] 10 unit SQ BID@0700,2100 30 Days #5 each HYDROcodone/APAP 5-325MG [[place] 5-325] 1 each PO Q4HR PRN #9 tab PRN Reason: Pain Calcium Carbonate [Tums] 1,000 mg PO TID PRN tab PRN Reason: Heartburn Discharge Medication List Calcium Carbonate [Tums] 1,000 mg PO TID PRN tab 05/15/23 [Rx] Gabapentin [Neurontin] 300 mg PO BID #6 cap 05/15/23 [Rx] HYDROcodone/APAP 5-325MG [[place] 5-325] 1 each PO Q4HR PRN #9 tab 05/15/23 [Rx] INSULIN ASPART (NovoLOG) [NovoLOG (formulary)] 6 unit SQ [id number] 30 Days #6 each 05/15/23 [Rx] Insulin Detemir (Levemir) [Levemir] 10 unit SQ BID@0700,2100 30 Days #5 each 05/15/23 [Rx] cefTRIAXone [Rocephin] 2,000 mg IVP Q24HR #21 each 05/15/23 [Rx] metFORMIN HCL [Glucophage] 500 mg PO BID-W/MEALS 30 Days #60 tab 05/15/23 [Rx] Follow up Appointment(s)/Referral(s): [facility], [NON-STAFF] - As Needed ([facility] will call you to schedule the time for your first visit for 05/16/23. They will begin IV antibiotic teaching and wound care teaching at this time. ) [facility] [NON-STAFF] - As Needed ([facility] will deliver IV antibiotic supplies to your house on the evening of discharge. ) Shoaib Galvan MD [REFERRING] - 1 Week (Office is closed at time of discharge. Please call for follow-up appointment.) [facility] [NON-STAFF] - 1 Week (Office is closed at time of discharge. Please call for follow-up appointment.) Byron Olmos MD [STAFF PHYSICIAN] - 2 Weeks (will see Dr. Olmos at wound care office.) Von Bansal MD [STAFF PHYSICIAN] - 1 Week (Office is closed at time of discharge. Please call for follow-up appointment.) Patient Instructions/Handouts: Diabetic Ketoacidosis (DC), Meal Planning with Diabetes Exchanges (DC), How to Care for Your PICC (Peripherally Inserted Central Catheter) (DC), PICC (Peripherally Inserted Central Catheter) (DC) Activity/Diet/Wound Care/Special Instructions: *Glucometer is at [facility] - please have it delivered to patient prior to discharge. Activity Limited until follow-up Follow-up and establish with primary care provider on discharge Follow-up with infectious disease and continue with antibiotics and Homecare outpatient Follow-up with surgery in the outpatient setting in 1-2 weeks Continue with local wound care to the coccyx sacral region by cleansing with normal saline every other day and applying absorbent silver rope that is moistened and then Kerlix for packing along with ABD pad and secure with paper tape. Continue with offloading to that area as much as possible Continue to monitor blood sugars before meals and at bedtime and keep a diary of all readings along with all meals and food you are eating and bring with you for follow-up appointments NovoLog sliding scale 0-150 equals 0 units 151-200 equals 2 units 201-250 equals 4 units 251-300 equals 6 units 301-350 equals 8 units 351-400 equals 10 units Please notify provider if blood sugar is 400 or above If blood sugars are 100 or less recommend holding insulin and monitoring Continue a diabetic diet Discharge/Stand Alone Forms: Area PCPs Discharge Disposition: HOME WITH HOME HEALTH SERVICES
== END 2023-05-15 14:46 | disposition home health service (06) | DRG 853 ==
LOC: EC 12:18 → 2SICU 15:01 → 4SSUR 05-09 18:55
PROVIDERS: ADMIT Internal Medicine; ATTEND Internal Medicine
PROC: 0KBN0ZZ Excision of Right Hip Muscle, Open Approach (ICD-10-PCS; principal; 2023-05-11 10:50)
PROC: 02HV33Z Insertion of Infusion Device into Superior Vena Cava, Percutaneous Approach (ICD-10-PCS; 2023-05-13)
DX: A41.51 Sepsis due to Escherichia coli [E. coli] (principal); E11.10 Type 2 diabetes mellitus with ketoacidosis without coma; L89.314 Pressure ulcer of right buttock, stage 4; G93.41 Metabolic encephalopathy; J18.9 Pneumonia, unspecified organism; K85.90 Acute pancreatitis without necrosis or infection, unspecified; E44.0 Moderate protein-calorie malnutrition; F05 Delirium due to known physiological condition; J44.0 Chronic obstructive pulmonary disease with (acute) lower respiratory infection; L02.31 Cutaneous abscess of buttock; E72.4 Disorders of ornithine metabolism; R65.20 Severe sepsis without septic shock; L98.429 Non-pressure chronic ulcer of back with unspecified severity; B95.1 Streptococcus, group B, as the cause of diseases classified elsewhere; E11.622 Type 2 diabetes mellitus with other skin ulcer; I11.0 Hypertensive heart disease with heart failure; I50.9 Heart failure, unspecified; Z68.20 Body mass index [BMI] 20.0-20.9, adult; F17.210 Nicotine dependence, cigarettes, uncomplicated; I95.9 Hypotension, unspecified; T38.3X6A Underdosing of insulin and oral hypoglycemic [antidiabetic] drugs, initial encounter; R68.0 Hypothermia, not associated with low environmental temperature; K52.9 Noninfective gastroenteritis and colitis, unspecified; E83.42 Hypomagnesemia; K20.90 Esophagitis, unspecified without bleeding; Z79.4 Long term (current) use of insulin; E86.0 Dehydration; Z79.84 Long term (current) use of oral hypoglycemic drugs; E87.6 Hypokalemia; R09.02 Hypoxemia; Z20.822 Contact with and (suspected) exposure to COVID-19; Z79.2 Long term (current) use of antibiotics; Z82.49 Family history of ischemic heart disease and other diseases of the circulatory system; Z83.3 Family history of diabetes mellitus; Z86.16 Personal history of COVID-19; Z91.128 Patient's intentional underdosing of medication regimen for other reason; Z91.199 Patient's noncompliance with other medical treatment and regimen due to unspecified reason; Z71.3 Dietary counseling and surveillance; Z79.899 Other long term (current) drug therapy
CPT/HCPCS: 36415; 36573; 70450; 71045; 71275; 72125; 72170; 74018; 76705; 80048; 80051; 80053; 80061; 80143; 80179; 80306; 80320; 81001; 82009; 82140; 82150; 82272; 82330; 82550; 82565; 82803; 82947; 83036; 83605; 83690; 83735; 83930; 84100; 84132; 84145; 84443; 84484; 84520; 85025; 85379; 85610; 85652; 85730; 86140; 87040; 87070; 87075; 87077; 87186; 87205; 87636; 93005; 96361; 96365; 96366; 96367; 96368; 99291

== ENCOUNTER → 2023-08-27 | Outpatient (CLI) | payer BC ==
--- NOTE | 2023-08-27 12:37 | XR ---
EXAMINATION TYPE: XR lumbosacral spine min 4V DATE OF EXAM: 08/27/2023 12:10 PM CLINICAL INDICATION:Male, 58 years old with history of [id number] LBP; [facility] COMPARISON: None TECHNIQUE: XR lumbosacral spine min 4V - Frontal, lateral , bilateral oblique and coned in L5-S1 late ral views of the spine. FINDINGS: No evidence of any acute osseous pathology. No evidence of loss of vertebral body height i s seen. There is normal alignment of the lumbar vertebral bodies. Mild scattered disc space narrowing . Multilevel marginal osteophyte formation throughout the visualized spine. There is facet joint arth ropathy throughout the spine. Scattered at least mild neural foraminal stenosis. No foraminal stenosi s worse at L5-S1. Sclerosis of the arterial vasculature. IMPRESSION: 1. No acute fracture. 2. Moderate multilevel disc degeneration.
== END | disposition home or self-care (01) ==
LOC: RADXRYALE 11:53
PROVIDERS: ATTEND Physician Assistant
DX: M51.37 Other intervertebral disc degeneration, lumbosacral region (principal)
CPT/HCPCS: 72110